=== PATIENT | female | born 1940 | race Caucasian/White ===

== ENCOUNTER 2016-10-20 08:01 | Day surgery (SDC) | payer MEDICARE, OTHER ==
[~2016-10-20] VITALS: Ht 154.9 cm; Wt 70.7 kg
[~2016-10-20 08:01] MED LIST: AMAR4TAB PO; BAYE81TA PO; CALC600T34 PO; CEPH500C3 PO; CORE25TA PO; DIGO.125 PO; FORTEO IM; HYDR10TA16 PO; LASI20TA PO; LEVEMIR SQ; LISI-363 PO; TAB-TAB PO; VYTO10TA32 PO
[2016-10-20 08:44] VITALS: BP 134/58; PULSE 108; RESP 18; TEMP 97.7; O2SAT 92
[2016-10-20] MEDS ORDERED: NS 1000P @30 MLS/HR (KVO) IV SCH (09:00)
[2016-10-20] MEDS ORDERED: INSU1INJ5 SQ (09:02)
[2016-10-20] MEDS ORDERED: CHOL50006 PO (09:02)
[2016-10-20] MEDS ORDERED: CARV12.5 PO (09:02)
[2016-10-20] MEDS ORDERED: LANO0.1212 PO (09:02)
[2016-10-20] MEDS ORDERED: MULT1TAB84 PO (09:02)
[2016-10-20] MEDS ORDERED: FURO1TAB62 PO (09:02)
[2016-10-20] MEDS ORDERED: LOSA50TA PO (09:02)
[2016-10-20] MEDS ORDERED: ASPI81TA11 PO (09:02)
[2016-10-20] MEDS ORDERED: LISI-519 PO (09:02)
[2016-10-20] MEDS ORDERED: VYTO10TA8 PO (09:02)
[2016-10-20 09:15] LABS: AUTOMATED NEUTROPHIL # 4.9 TH/MM3 (1.8-7.7); BASOPHIL % 0.6 % (0.0-2.0); EOSINOPHIL # 0.3 TH/MM3 (0-0.4); EOSINOPHIL % 3.1 % (0.0-4.0); HEMATOCRIT 41.8 % (35.0-46.0); HEMO FLAGS DIFF FINAL; LYMPH % 27.2 % (9.0-44.0); LYMPHOCYTE # 2.3 TH/MM3 (1.0-4.8); MEAN CELL VOLUME 95.3 FL (80.0-100.0); MEAN CORPUSCULAR HEMOGLOBIN 32.9 PG (27.0-34.0); MEAN CORPUSCULAR HGB CONC 34.5 % (32.0-36.0); MONO % 10.3 % (0.0-8.0); NEUT % 58.8 % (16.0-70.0); PLATELET COUNT 197 TH/MM3 (150-450); RED BLOOD COUNT 4.38 MIL/MM3 (4.00-5.30); RED CELL DISTRIBUTION WIDTH 12.3 % (11.6-17.2); WHITE BLOOD COUNT 8.4 TH/MM3 (4.0-11.0)
[2016-10-20 09:22] LABS: BICARBONATE 28.9 MEQ/L (21.0-32.0); POTASSIUM 3.7 MEQ/L (3.5-5.1)
[2016-10-20 09:30] LABS: APTT (PATIENT) 26.6 SEC (24.3-30.1); PROTHROMBIN TIME - PATIENT 11.4 SEC (9.8-11.6)
[2016-10-20] MEDS ORDERED: HEPARIN-NS/PF INJ 500 ML ONE (09:57)
[2016-10-20] MEDS ORDERED: MIDAZOLAM HCL 2 MG/2 ML VIAL ONE (10:18)
[2016-10-20] MEDS ORDERED: VERAPAMIL HCL 5 MG/2 ML VIAL ONE (10:19)
[2016-10-20] MEDS ORDERED: HEPARIN SODIUM - IV 10,000 UNITS/10 ML VIAL ONE (10:19)
[2016-10-20] MEDS ORDERED: NITROGLYCERIN INJ 5 ML ONE (10:19)
[2016-10-20] MEDS ORDERED: IOHEXOL 350 MG/ML 100 ML BTL (for Cath Lab) OTHER ONE (11:00)
[2016-10-20] MEDS ORDERED: SODIUM CHLORIDE 0.9% FLUSH 5 ML FLUSH IVF SCH (11:15)
[2016-10-20] MEDS ORDERED: MISC INFORMATION XX ONE (11:15)
[2016-10-20] MEDS ORDERED: SODIUM CHLORIDE 0.9% FLUSH 5 ML FLUSH IVF PRN (11:15)
[2016-10-20] MEDS ORDERED: ceFAZolin 2 GM PREMIX 50 ML IV SCH (12:00)
[2016-10-20] MEDS ORDERED: CEFAZOLIN INJ 500 MG in SODIUM CHLORIDE 0.9% IRR BTL 500 ML IRRIGATION SCH (12:00)
--- NOTE | 2016-10-20 12:49 | MA ---
cc: MILIND CHEW HANSCY M.D. DATE 10/20/2016 PROCEDURE Left heart catheterization, coronary angiogram. PREPROCEDURE DIAGNOSIS Severe mitral regurgitation by echocardiogram for possible CT surgery. POSTPROCEDURE DIAGNOSIS Mild coronary artery disease, severe mitral regurgitation. MEDICATIONS USED 1. Heparin 2800 units 2. Verapamil 2.5 mg 3. Nitroglycerin 200 mcg 4. Versed 0.5 mg 5. Fentanyl 25 mcg CONTRAST 90 cc FLUOROSCOPY 4.2 minutes ESTIMATED BLOOD LOSS 10 cc PROCEDURAL SUMMARY Jeniffer Huerta is a pleasant 76-year-old female sent to me by Dr. Stubbs after having an echocardiogram that showed severe mitral regurgitation. There is a concern that she is starting to drop for ejection fraction and is asymptomatic from this. He asked that she have coronary visualization and then a consult with CT surgery about the mitral valve. The risks, benefits and alternatives were explained to her and she signed consent as such. She was brought to the lab and prepped in the usual sterile fashion. The right radial artery was accessed using a modified Seldinger technique and placement of a 5/6 slender sheath. The sheath was aspirated and flushed with ease. A JR-4 was then advanced over a J-wire to the ascending aorta. This was used to cross the aortic valve and pressures in the left ventricle were measured at an LVEDP of 17. JR-4 was then pulled back across the aortic valve showing no significant stenosis aortic stenosis gradient. JR-4 was used for selective angiography of the right coronary artery which shows a superior takeoff with mild tortuosity through the proximal to midportion with a 30% lesion. Otherwise, no significant disease throughout. The RCA is a dominant vessel. JR-4 was then exchanged for a JL-3.5. This was used for selective angiography of the left coronary system. Left main is a normal-size vessel with mild calcium at the distal portion with a 20% lesion. It trifurcates into an LAD, ramus and left circumflex. The LAD has 20% proximally with 10% diffuse distally. It gives off two diagonals the first of which is a small vessel and has a 50% ostial lesion. The second has no significant disease. The ramus is a large vessel that does go to the apex, and has no significant disease throughout. A left circumflex is a nondominant vessel and is somewhat tortuous, but has mild disease of 10-20% in the mid section. JL-3.5 was then removed over a J-wire. A TR band was placed across the radial sheath, radial sheath removed and placement of 11 cc of air. The patient left the cardiac catheterization lab stable. IMPRESSION 1. Severe mitral regurgitation by echocardiogram with a drop of her ejection fraction. 2. Shortness of breath most likely from severe mitral regurgitation. 3. Mild coronary artery disease by cardiac catheterization (October 20, 2016). RECOMMENDATIONS 1. Jeniffer appears to have mild coronary artery disease and I feel that she needs any vessels bypassed at this time. 2. She will be evaluated by CT surgery for consideration of mitral valve repair versus replacement. 3. Further recommendations after CT surgery evaluation. Thank you for allowing me to see Jeniffer Huerta. If there are any questions, please do not hesitate to call. Milind Chew DO VGP/DJL /11:05 AM /12:37 PM
--- NOTE | 2016-10-20 12:59 | EKG ---
Date Performed: 10/20/2016 Time Performed: 08:52:30 PTAGE: 76 years EKG: Marked baseline artifact. Probable Sinus rhythm with possible ventricular demand pacing Abnormal ECG COMPARED TO PRIOR ELECTROCARDIOGRAM, Artifact m akes comparison difficult although there probably is no definite change. Clinical correlation sugges gregorio. PREVIOUS TRACING : 11/05/2010 05.13 DOCTOR: Valeriy Kent Interpretating Date/Time 10/20/2016 12:58:35
--- NOTE | 2016-10-20 13:13 | RADRPT ---
EXAM DATE/TIME: 10/20/2016 12:08 [facility] COMPARISON: No previous studies available for comparison. INDICATIONS : PreOp mitral valve replacement. MEDICAL HISTORY : Hypothyroidism. Congestive heart failure. Diabetes mellitus type 2. Hypertension. A-Fib. Glaucoma. SURGICAL HISTORY : Cardiac catheterization. ENCOUNTER: Initial ACUITY: 1 day PAIN SCORE: 0/10 LOCATION: Bilateral neck PEAK SYSTOLIC VELOCITIES (cm/sec): ICA/CCA RATIO: Right: 2.5 Left: 1.7 ICA: Right: 122 Left: 118 CCA: Right: 50 Left: 68 ECA: Right: 91 Left: 72 VERTEBRAL: Right: 52 antegrade Left: 44 antegrade Elevated flow velocities and ICA/CCA ratios have been found to correlate with increased degrees of vessel stenosis, calculated as percentage of diameter relative to a normal segment of distal ICA/CCA FINDINGS: There is calcific plaque in bilateral carotids lesser extent on the left and on the right at the bulb and particularly initial segment the internal carotid with elevated ratio of 2.5 on the right consis tent with greater than 70% stenosis. Vertebral arteries reveal antegrade flow. Multiple nodules noted in the thyroid. CONCLUSION: Atherosclerotic disease and plaque in bilaterally carotids with greater than 70% sten osis on the right. Multinodular goiter Oskar Jj MD on October 20, 2016 at 13:08 Board Certified Radiologist. This report was verified electronically.
--- NOTE | 2016-10-20 13:36 | RADRPT ---
EXAM DATE/TIME: 10/20/2016 12:42 [facility] COMPARISON: CHEST SINGLE AP, November 04, 2010, 16:06. INDICATIONS : Pre op mitral valve surgery. MEDICAL HISTORY : Hyperthyroidism. Congestive heart failure. Diabetes. A-fib. SURGICAL HISTORY : Pacemaker. ENCOUNTER: Initial ACUITY: 1 day PAIN SCORE: 0/10 LOCATION: chest FINDINGS: A single view of the chest demonstrates the lungs to be symmetrically aerated without evidence of mas s, infiltrate or effusion. The cardiomediastinal contours are unremarkable. Osseous structures are intact. Multilevel pacemaker AICD device overlies left hemithorax unchanged. CONCLUSION: Pacemaker AICD device in place. Otherwise negative with no acute cardiopulmonary process Oskar Jj MD on October 20, 2016 at 13:34 Board Certified Radiologist. This report was verified electronically.
--- NOTE | 2016-10-20 14:26 | PD.CAR.PN ---
CVT Progress Note Subjective/Hospital Course: sts data discussed with pt Objective: Vital Signs Date Time Temp Pulse Resp B/P Pulse Ox O2 Delivery O2 Flow Rate FiO2 10/20/16 11:13 Room Air 10/20/16 08:44 97.7 108 18 134/58 92 Labs: Laboratory Tests Test 10/20/16 08:36 White Blood Count 8.4 TH/MM3 (4.0-11.0) Red Blood Count 4.38 MIL/MM3 (4.00-5.30) Hemoglobin 14.4 GM/DL (11.6-15.3) Hematocrit 41.8 % (35.0-46.0) Mean Corpuscular Volume 95.3 FL (80.0-100.0) Mean Corpuscular Hemoglobin 32.9 PG (27.0-34.0) Mean Corpuscular Hemoglobin 34.5 % Concent (32.0-36.0) Red Cell Distribution Width 12.3 % (11.6-17.2) Platelet Count 197 TH/MM3 (150-450) Mean Platelet Volume 9.0 FL (7.0-11.0) Neutrophils (%) (Auto) 58.8 % (16.0-70.0) Lymphocytes (%) (Auto) 27.2 % (9.0-44.0) Monocytes (%) (Auto) 10.3 % (0.0-8.0) Eosinophils (%) (Auto) 3.1 % (0.0-4.0) Basophils (%) (Auto) 0.6 % (0.0-2.0) Neutrophils # (Auto) 4.9 TH/MM3 (1.8-7.7) Lymphocytes # (Auto) 2.3 TH/MM3 (1.0-4.8) Monocytes # (Auto) 0.9 TH/MM3 (0-0.9) Eosinophils # (Auto) 0.3 TH/MM3 (0-0.4) Basophils # (Auto) 0.0 TH/MM3 (0-0.2) CBC Comment DIFF FINAL Differential Comment Prothrombin Time 11.4 SEC (9.8-11.6) Prothromb Time International 1.0 RATIO Ratio Activated Partial 26.6 SEC Thromboplast Time (24.3-30.1) Sodium Level 144 MEQ/L (136-145) Potassium Level 3.7 MEQ/L (3.5-5.1) Chloride Level 107 MEQ/L (98-107) Carbon Dioxide Level 28.9 MEQ/L (21.0-32.0) Anion Gap 8 MEQ/L (5-15) Blood Urea Nitrogen 15 MG/DL (7-18) Creatinine 0.97 MG/DL (0.50-1.00) Estimat Glomerular Filtration 56 ML/MIN (>89) Rate Random Glucose 85 MG/DL (74-106) Calcium Level 9.3 MG/DL (8.5-10.1) Result Diagram: 10/20/16 0836 10/20/16 0836 Kailee Bustamante Oct 20, 2016 14:26
[2016-10-20 15:20] LABS: BLOOD, URINE SMALL (NEG); COMMENT (UR) CULTURE INDICATED; CULTURE IF INDICATED CULTURE INDICATED; GLUCOSE,URINE NEG (NEG); KETONE, URINE NEG (NEG); MUCUS URINE FEW /lpf (OCC); NITRITE,URINE NEG (NEG); PH, URINE 5.5 (5.0-8.5); SQUAMOUS EPITHELIAL CELL URINE 5 /hpf (0-5); URINE COLOR YELLOW (YELLW/STRAW)
[2016-10-20 17:53] LABS: HEMOGLOBIN A1a 0.9 %; HEMOGLOBIN Ao 82.4 %; HEMOGLOBIN LA1C 1.7 %; HEMOGLOBIN P3 4.2 %
--- NOTE | 2016-11-09 10:57 | RSPPFT ---
DATE OF PROCEDURE: 10/20/16 COMMENTS: Spirometry demonstrates an FEV1 of 0.9 at 51% of predicted, FVC of 1.2 at 52%, FEF 25-75 at 41% of predicted. Flow volume loops suggest a restrictive defect. IMPRESSION: 1. Moderately severe restrictive disease. 2. Additional moderate obstructive disease.
== END 2016-10-20 16:35 | disposition home or self-care (01) ==
LOC: HDOC 08:01 → HDIC 08:02 → HDOC 16:35
PROVIDERS: ATTEND Nuclear Medicine Nuclear Cardiology
DX: I34.0 Nonrheumatic mitral (valve) insufficiency (principal); I25.10 Atherosclerotic heart disease of native coronary artery without angina pectoris; I48.91 Unspecified atrial fibrillation; I50.9 Heart failure, unspecified; E03.9 Hypothyroidism, unspecified; E11.9 Type 2 diabetes mellitus without complications; E04.2 Nontoxic multinodular goiter; N39.0 Urinary tract infection, site not specified; B96.1 Klebsiella pneumoniae [K. pneumoniae] as the cause of diseases classified elsewhere; Z79.01 Long term (current) use of anticoagulants; Z95.0 Presence of cardiac pacemaker; Z01.818 Encounter for other preprocedural examination
CPT/HCPCS: 71010; 80048; 81001; 83036; 85025; 85610; 85730; 87077; 87086; 87186; 87641; 93005; 93454; 93880; 94010; C1769; C1893; J1644; J2250; J3010; Q9967

== ENCOUNTER 2016-10-23 15:12 | Inpatient (IN) | payer MEDICARE, OTHER ==
--- NOTE | 2016-10-20 16:25 | MB ---
cc: HATTIE PAPPAS DATE OF CONSULTATION: 10/20/2016 DATE OF : 1940 REASON FOR CONSULTATION: 76-year-old female patient of Dr. Javier Stubbs, Dr. Osiel Jack with longstanding history of congestive heart failure, cardiomyopathy. PAST MEDICAL HISTORY: Ejection fraction of 20-25%, underwent bi IVCD placement in October [address] Stubbs. Also history of hyperlipidemia, diabetes mellitus and atrial fibrillation, apparently having some increased dyspnea with minimal exertion, fatigue, also increased palpitations. Denies having any syncopal episode, no edema. No weight gain or weight loss. No orthopnea, paroxysmal nocturnal dyspnea. Denies having any shocks from her AICD, no recent fevers cold or chills. She said she has been compliant with her medications. She has a history of mitral valve regurgitation, had a echocardiogram September 30 which showed ejection fraction of 50%. Grade 3 diastolic dysfunction, restrictive mitral inflow pattern, mitral valve showed a severe with a concentric jet. There was some mild to moderate tricuspid regurgitation. No pericardial effusion, mild pulmonary hypertension with right ventricle systolic pressures of 55. She underwent cardiac catheterization today by Dr. Mirza which showed minimal coronary disease and we were consulted to evaluate from mitral valve replacement versus repair. PAST MEDICAL HISTORY: 1. The patient's past medical history as above to and also included diabetes mellitus on insulin. 2. glaucoma. PAST SURGICAL HISTORY: 1. Bi IVCD placement. 2. Hysterectomy 3. Tonsillectomy. ALLERGIES No known allergies. MEDICATIONS 1. Aspirin and 81 mg. 2. Coreg 12.5 mg b.i.d. 3. Digoxin 0.125 daily. 4. Lasix 20 p.o. daily. 5. Levemir 13-minute units daily. 6. Lisinopril five p.o. daily. 7. Losartan 50 mg b.i.d. blood. 8. Multivitamin. 9. Vitamin E. 10. Vytorin 10/20 p.o. daily. EKG shows sinus rhythm, Q-waves in inferior leads. LABORATORY FINDINGS: Lab work shows sodium of 144. Potassium 3.7, BUN 15, creatinine 0.97, hemoglobin 14, hematocrit of 41, white cell count 8.4, platelet count 197, INR 1.0. CAROTID ULTRASOUND; Completed showing atherosclerotic disease and plaque in bilateral carotids with greater than 70 stenosis on the right. Chest x-ray Reveals pacer ICD in place, otherwise no acute process. IMPRESSION/PLAN This is a 76-year-old female with history of severe mitral regurgitation. History of prior cardiomyopathy, diastolic dysfunction with bi IV ICD prior with improved EF to 50% on 20-25% on multiple medication and medication compliant. The cardiac films have been reviewed by Dr. Hattie Pappas procedures, alternatives and risks have been discussed with the patient. STS data has also been discussed with the patient. She is agreeable to proceed for mitral valve repair versus replacement on October 29, 2016, as an outpatient. Dictated by: SARKIS Samaniego MD CHASTITY Mayorga/lceveland /2:29 PM /9:16 AM [facility]ME[facility]
[~2016-10-23] VITALS: Ht 154.9 cm; Wt 77.0 kg
[~2016-10-23 15:12] MED LIST changes: -AMAR4TAB PO; +ASPI81TA11 PO; -BAYE81TA PO; -CALC600T34 PO; +CARV12.5 PO; -CEPH500C3 PO; +CHOL50006 PO; -CORE25TA PO; -DIGO.125 PO; -FORTEO IM; +FURO1TAB62 PO; -HYDR10TA16 PO; +INSU1INJ5 SQ; +LANO0.1212 PO; -LASI20TA PO; -LEVEMIR SQ; -LISI-363 PO; +LISI-519 PO; +LOSA50TA PO; +MULT1TAB84 PO; -TAB-TAB PO; -VYTO10TA32 PO; +VYTO10TA8 PO
[2016-10-29] VITALS (16 sets, daily range): BP systolic 100; BP diastolic 51; PULSE 60–69; RESP 18; TEMP 97.5; O2SAT 92–98
[2016-10-29] MEDS ORDERED: VECURONIUM BROMIDE 10 MG VIAL IV ONE (05:00)
[2016-10-29] MEDS ORDERED: CALCIUM CHLORIDE 10% SOLN 1 GRAM/10 ML SYR IV ONE (05:00)
[2016-10-29] MEDS ORDERED: PROPOFOL 1000 MG/100 ML INJ 100 ML IV ONE (05:00)
[2016-10-29] MEDS ORDERED: ACETAMINOPHEN 1000 MG/100 ML VIAL IV ONE (05:00)
[2016-10-29] MEDS ORDERED: PHENYLEPHRINE HCL 10 MG/ML VIAL IV ONE (05:00)
[2016-10-29] MEDS ORDERED: ceFAZolin INJ 1,000 MG VIAL IV ONE ×2 (05:00→12:26)
[2016-10-29] MEDS ORDERED: PROTAMINE SULFATE 250 MG/25 ML VIAL IV ONE (05:00)
[2016-10-29] MEDS ORDERED: HEPARIN SODIUM - SQ 10,000 UNITS/ML VIAL SQ ONE (05:00)
[2016-10-29] MEDS ORDERED: DEXMEDETOMIDINE INJ 50 ML IV ONE (05:00)
[2016-10-29] MEDS ORDERED: MAGNESIUM SULFATE 1000 MG/2 ML VIAL (PED) IV ONE (05:00)
[2016-10-29] MEDS ORDERED: methylPREDNISolone SOD SUCC 125 MG/2 ML VIAL ONE (06:28)
[2016-10-29] MEDS ORDERED: VANCOMYCIN HCL 1000 MG VIAL ONE (06:28)
[2016-10-29] MEDS ORDERED: HEPARIN SODIUM - SQ 10,000 UNITS/ML VIAL ONE (06:28)
[2016-10-29] MEDS ORDERED: ceFAZolin 2 GM PREMIX 50 ML IV SCH (06:30)
[2016-10-29] MEDS ORDERED: METOPROLOL TARTRATE 25 MG TAB PO SCH (06:30)
[2016-10-29] MEDS ORDERED: SODIUM CHLORIDE 0.9% FLUSH 5 ML FLUSH IV FLUSH PRN ×2 (06:30→13:15)
[2016-10-29] MEDS ORDERED: CHLORHEXIDINE GLUCONATE 4% SOLN 120 ML BTL TOPICAL SCH (06:30)
[2016-10-29] MEDS ORDERED: CEFAZOLIN 500 MG in NS IRR BTL 500 ML IRRIGATION SCH (06:30)
[2016-10-29] MEDS ORDERED: INSULIN HUMAN REGULAR 1,000 UNITS/10 ML VIAL SQ PRN (06:30)
[2016-10-29] MEDS: LACTATED RINGER'S 1000 ML IV SCH (06:30)
[2016-10-29] MEDS: SODIUM CHLORID 0.9% 500 ML IV SCH ×2 (06:30→23:10)
[2016-10-29] MEDS ORDERED: INSULIN REGULAR 100 UNITS in NS 100 ML IV SCH (06:30)
[2016-10-29] MEDS ORDERED: CUSTODIOL HTK IRR SOLN 1,000 ML ONE (06:45)
[2016-10-29] MEDS ORDERED: POTASSIUM CHLORIDE 20 MEQ/10 ML VIAL ONE (06:45)
[2016-10-29] MEDS ORDERED: SODIUM BICARBONATE 8.4% INJ 50 ML ONE (06:46)
[2016-10-29] MEDS ORDERED: ALBUMIN HUMAN 25% 12.5 GM/50 ML BAGP IV ONE (06:46)
[2016-10-29] MEDS ORDERED: MANNITOL INJ 50 ML ONE (06:46)
[2016-10-29] MEDS ORDERED: HEPARIN SODIUM - IV 10,000 UNITS/10 ML VIAL ONE (06:47)
[2016-10-29] MEDS: SODIUM CHLORIDE 0.9% FLUSH 5 ML FLUSH IV FLUSH SCH ×3 (09:00→20:41)
[2016-10-29] MEDS ORDERED: BUPIVACAINE HCL PF 0.5% 30 ML VIAL ONE (09:28)
[2016-10-29] MEDS ORDERED: DEXMEDETOMIDINE INJ 50 ML ONE (10:53)
[2016-10-29] MEDS ORDERED: SODIUM CHLORID 0.9% 500 ML INJ 500 ML IV ONE (12:00)
[2016-10-29] MEDS ORDERED: LACTATED RINGER'S 1000 ML INJ 2,000 ML IV ONE (12:00)
[2016-10-29] MEDS ORDERED: SODIUM CHLOR 0.9% 250 ML INJ 500 ML IV ONE (12:00)
[2016-10-29] MEDS ORDERED: PROTAMINE SULFATE 50 MG/5 ML VIAL IV ONE (12:00)
[2016-10-29] MEDS ORDERED: NORMOSOL R INJ 2,000 ML IV ONE (12:00)
[2016-10-29] MEDS ORDERED: LACTATED RINGER'S 1000 ML INJ 500 ML IV PRN (13:01)
[2016-10-29] MEDS ORDERED: DEXTROSE 50% IN WATER 50 ML VIAL(D50) IV PUSH PRN (13:15)
[2016-10-29] MEDS ORDERED: oxyCODONE/ACETAMINOPHEN 5 MG/325 MG TAB PO PRN (13:15)
[2016-10-29] MEDS ORDERED: MAGNESIUM SULFATE INJ 2 GM in SODIUM CHLORIDE 0.9% INJ 100 ML IV PRN ×4 (13:15)
[2016-10-29] MEDS ORDERED: INSULIN REGULAR (IV INFUSION) 100 UNITS in SODIUM CHLORIDE 0.9% INJ 99 ML IV SCH (13:15)
[2016-10-29] MEDS ORDERED: METOPROLOL TARTRATE 5 MG/5 ML VIAL IV PUSH PRN (13:15)
[2016-10-29] MEDS ORDERED: ACETAMINOPHEN 325 MG TAB PO PRN (13:15)
[2016-10-29] MEDS ORDERED: POTASSIUM CHLOR 20 MEQ PREMIX 100 ML IV PRN ×3 (13:15)
[2016-10-29] MEDS ORDERED: ACETAMINOPHEN 650 MG SUPP RECTAL PRN (13:15)
[2016-10-29] MEDS ORDERED: Post-op Orders (for Pharmacy) MISC OTHER ONE (13:15)
[2016-10-29] MEDS ORDERED: hydrALAZINE HCL 20 MG/ML VIAL IV PRN (13:15)
[2016-10-29] MEDS ORDERED: POTASSIUM CHLORIDE 20 MEQ CONTROLLED RELEASE TAB PO PRN ×2 (13:15)
[2016-10-29] MEDS ORDERED: CALCIUM CHLORIDE 10% 1 GRAM/10 ML VIAL IV PRN (13:15)
[2016-10-29] MEDS ORDERED: ONDANSETRON HCL 4 MG/2 ML VIAL IV PUSH PRN (13:15)
[2016-10-29] MEDS ORDERED: CLEVIDIPINE INJ 50 ML IV SCH (13:15)
--- NOTE | 2016-10-29 13:27 | PD.OP ---
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 Prater Surgeon: Hattie Pappas Blanchard Grinder Operator(s): Carlos Tilley Operation and Findings: The risks, benefits, complications, treatment options, and expected outcomes were discussed with the patient. The possibilities of reaction to medication, pulmonary aspiration, perforation of viscus, bleeding, recurrent infection, the need for additional procedures, failure to diagnose a condition, and creating a complication requiring transfusion or operation were discussed with the patient. The patient concurred with the proposed plan, giving informed consent. The site of surgery properly noted/marked. The patient was taken to Operating Room, identified as Jeniffer Huerta, and the procedure verified as Minimally Invasive Mitral Valve Replacement. A Time Out was held and the above information confirmed. Standard monitoring lines and Vizcarra catheter were placed. General anesthesia was induced. The patient was prepped and draped in a sterile fashion. A 3 cm incision was performed in the left groin and the femoral artery and vein were exposed. The patient was heparinized for cardiopulmonary bypass. The left femoral artery was cannulated with a 17 [employer] arterial cannula. The left femoral vein was cannulated with a 21 [employer] cannula under JHONATAN guidance. A 6 cm right anterolateral thoracotomy was performed. An José Miguel retractor was placed followed by a small chest retractor. The pericardium was opened and a pericardial sling was created using interrupted 0 silk sutures. A small 1 cm incision was made at the 6th intercostal space and an LV vent and pericardial suction were placed through this access port. The aorta was dissected posteriorly for crossclamp placement. Antegrade Custodiol cardioplegia were employed. The patient was placed on cardiopulmonary bypass. The intra-atrial groove was dissected out. An aortic cross-clamp was applied and the heart was arrested using cold Custodiol cardioplegia delivered through a 14F catheter. The left atrium was opened mitral valve was exposed using an atrial lift retractor with the post placed percutaneously. The valve was found to appear rheumatic with partial fusion at the medial commissure. Part of the anterior leaflet was resected with the remainder of the subvalvular apparatus spared. The annulus was sized for a 27 Mosaic tissue valve which was placed with 2-0 pledgeted Tycron valve sutures. The valve seated well. The left atrium was closed with running 4-0 Prolene suture. The patient systemically Re warmed and received a hotshot dose of warm blood cardioplegia. The heart was vigorously deaired with a clamp on. The clamp was removed, deairing continued. The patient was easily weaned from cardiopulmonary bypass. Decannulation was carried out without incident and both the femoral vessels were repaired with 5-0 prolene suture. Protamine was given. There was no adverse reaction. Intraoperative JHONATAN following the procedure showed a well-seated mitral valve with a tiny perivalvular leak and preserved ventricular function at ~35%. Wound was checked for hemostasis was obtained using electrocautery. The ribs were reapproximated using 0 Vicryl suture. The fascia and pectoralis were closed with 0 Vicryl. The subcutaneous tissue was closed using a running 3-0 Monocryl suture. The skin was closed with 4-0 Monocryl. The groin was closed in 2 layers. Sterile dressings were placed. At the end of the operation, all sponge, instruments, and needle counts were correct. The patient was transferred to the CVICU in stable condition. Hattie Pappas MD Oct 29, 2016 13:27
[2016-10-29] MEDS: ACETAMINOPHEN 1000 MG/100 ML VIAL IV SCH ×2 (13:43→22:17)
[2016-10-29] MEDS: CALCIUM CHLORIDE INJ 1 GM in SODIUM CHLORIDE 0.9% INJ 100 ML IV PRN (13:51)
[2016-10-29] MEDS ORDERED: RESP: ALBUTEROL 2.5 MG/IPRATROPIUM 0.5 MG NEB (PRN) NEB (14:15)
[2016-10-29] MEDS ORDERED: RESP: RACEPINEPHRINE 2.25% 0.5 ML NEB NEB PRN (14:15)
--- NOTE | 2016-10-29 14:22 | RADRPT ---
EXAM DATE/TIME: 10/29/2016 13:21 [facility] COMPARISON: CHEST SINGLE AP, October 20, 2016, 12:42. INDICATIONS : Post op mitral valve replacement. MEDICAL HISTORY : Hyperthyroidism. Congestive heart failure. Diabetes. A-fib. SURGICAL HISTORY : Pacemaker. ENCOUNTER: Subsequent ACUITY: 4 - 6 days PAIN SCORE: Non-responsive. LOCATION: Bilateral chest FINDINGS: Single AP view of the chest. Endotracheal tube is in place with the tip 4.3 cm above the gerardo. Righ t IJ central venous catheter is in place with the tip in the distal SVC. Nasogastric tube in place wi th the tip in the stomach. AICD remains in place. Right-sided chest tube and mediastinal drain are se en. Mild patchy bilateral midlung zone opacity. No evidence of pleural effusion or pneumothorax. CONCLUSION: Multiple lines and tubes in place. Mild patchy atelectasis versus consolidation of the midlung zones. Rajendra Kuo MD on October 29, 2016 at 14:19 Board Certified Radiologist. This report was verified electronically.
[2016-10-29] MEDS ORDERED: MIDAZOLAM HCL 5 MG/5 ML VIAL ONE ×2 (14:36→14:37)
[2016-10-29] MEDS ORDERED: fentaNYL CITRATE 1000 MCG/20 ML VIAL ONE (14:37)
[2016-10-29] MEDS: RESP: ALBUTEROL 2.5 MG/IPRATROPIUM 0.5 MG NEB (SCH) NEB ×2 (17:13→19:28)
[2016-10-29] MEDS: PRAVASTATIN SOD 40 MG TAB PO SCH (20:30)
[2016-10-29] MEDS: EZETIMIBE 10 MG TAB PO SCH (20:41)
[2016-10-29] MEDS ORDERED: NON-FORMULARY DRUG (Ezetimibe-Simvastatin (Vytorin) 1 TAB) PO SCH (21:00)
[2016-10-30] VITALS (30 sets, daily range): BP systolic 123–157; BP diastolic 51–69; PULSE 61–83; RESP 20–22; TEMP 97.5–97.9; O2SAT 94–97
[2016-10-30] MEDS: ACETAMINOPHEN 1000 MG/100 ML VIAL IV SCH ×2 (02:00→07:34)
[2016-10-30 04:33] LABS: HEMATOCRIT 35.2 % (35.0-46.0); MEAN CELL VOLUME 97.1 FL (80.0-100.0); MEAN CORPUSCULAR HEMOGLOBIN 32.5 PG (27.0-34.0); MEAN CORPUSCULAR HGB CONC 33.5 % (32.0-36.0); PLATELET COUNT 109 TH/MM3 (150-450); RED BLOOD COUNT 3.63 MIL/MM3 (4.00-5.30); REVIEW FLAG FINAL; WHITE BLOOD COUNT 11.5 TH/MM3 (4.0-11.0)
[2016-10-30] MEDS: RESP: ALBUTEROL 2.5 MG/IPRATROPIUM 0.5 MG NEB (SCH) NEB ×3 (04:44→20:55)
[2016-10-30 04:57] LABS: BICARBONATE 20.7 MEQ/L (21.0-32.0); MAGNESIUM 3.1 MG/DL (1.5-2.5); POTASSIUM 4.4 MEQ/L (3.5-5.1)
--- NOTE | 2016-10-30 06:11 | RADRPT ---
EXAM DATE/TIME: 10/30/2016 04:54 [facility] COMPARISON: CHEST SINGLE AP, October 29, 2016, 13:21. INDICATIONS : Post CABG. MEDICAL HISTORY : Congestive heart failure. SURGICAL HISTORY : Pacemaker. CABG. ENCOUNTER: Subsequent ACUITY: 2 days PAIN SCORE: Non-responsive. LOCATION: Bilateral chest FINDINGS: Portable AP view of the chest demonstrates a normal-sized cardiac silhouette. Left chest wall cardiac pacing device/AICD remains present. A right IJ central line remains present with distal tip in the r ight atrium. The nasogastric tube and endotracheal tube have been removed. Right chest tube remains p resent and no pneumothorax is visualized. There is mild to opacity the right lung base that is new an d there is also left basilar pleural-parenchymal opacity that appears new. CONCLUSION: 1. New small bibasilar opacities likely representing pleural effusion with associated volume loss and /or airspace consolidation. 2. Right chest tube remains present and no pneumothorax is visualized. Hardik Tripathi MD on October 30, 2016 at 6:07 Board Certified Radiologist. This report was verified electronically.
[2016-10-30] MEDS: PANTOPRAZOLE SOD 40 MG DELAYED RELEASE TAB PO SCH (06:22)
[2016-10-30] MEDS: LACTATED RINGER'S 1000 ML IV SCH (06:30)
[2016-10-30] MEDS ORDERED: DOPamine INJ PREMIX 500 ML IV STA (07:13)
[2016-10-30] MEDS ORDERED: SODIUM BICARBONATE 8.4% INJ 50 ML ONE (07:32)
[2016-10-30] MEDS ORDERED: SODIUM BICARBONATE 8.4% SOLN 50 MEQ/50 ML VIAL IV ONE (07:45)
[2016-10-30] MEDS: SODIUM CHLORIDE 0.9% FLUSH 5 ML FLUSH IV FLUSH SCH ×3 (08:11→22:20)
[2016-10-30] MEDS ORDERED: ASPIRIN EC 81 MG TABEC PO SCH (09:00)
[2016-10-30] MEDS ORDERED: FUROSEMIDE 40 MG/4 ML VIAL ONE (09:24)
[2016-10-30] MEDS: ASPIRIN 81 MG CHEW TAB PO SCH (09:35)
[2016-10-30] MEDS: MULTIVITAMINS/MINERALS THERAPEUTIC TAB PO SCH (09:35)
[2016-10-30] MEDS ORDERED: SOD PHOSPHATE/SOD BIPHOSPHATE (ADULT) ENEMA 133ML RECTAL PRN (09:45)
[2016-10-30] MEDS ORDERED: GLUCAGON 1 MG/ML VIAL OTHER PRN (09:45)
[2016-10-30] MEDS ORDERED: DEXTROSE 50% IN WATER 50 ML VIAL(D50) IV PRN (09:45)
[2016-10-30] MEDS ORDERED: BISACODYL 10 MG SUPP RECTAL PRN (09:45)
[2016-10-30] MEDS ORDERED: FUROSEMIDE 40 MG/4 ML VIAL IV PUSH ONE (09:45)
[2016-10-30] MEDS ORDERED: PILL SPLITTER OTHER PRN (10:00)
[2016-10-30] MEDS: CALCIUM CHLORIDE INJ 1 GM in SODIUM CHLORIDE 0.9% INJ 100 ML IV PRN (10:01)
[2016-10-30] MEDS: INSULIN ASPART SUPPLEMENTAL SCALE SQ SCH ×4 (10:38→22:16)
[2016-10-30] MEDS: amLODIPine BESYLATE 5 MG TAB PO SCH (11:30)
--- NOTE | 2016-10-30 13:43 | EKG ---
Date Performed: 10/30/2016 Time Performed: 05:59:02 PTAGE: 76 years EKG: Ventricular pacing Pacemaker rhythm - no further analysis Abnormal ECG PREVIOUS TRACING : 10/20/2016 08.52.30 Since previous tracing, no significant change noted DOCTOR: Rocio Luciano Interpretating Date/Time 10/30/2016 13:35:53
--- NOTE | 2016-10-30 15:55 | PD.CAR.PN ---
CVT Progress Note CVT: POD #: 1 Subjective/Hospital Course: 76/ female hx of recent worsening dyspnea on exertion with palpitations/ hx of severe MR/ mitral stenosis, cardiomyopathy with EF 2.-25% BI V ICD PMH: Mitral valve disease, mild CAD, afib, CM, CHF, DM, HTN, hgb aic 8.2 surgery: 10/29 Minimally invasive MVR with a 27 Mosaic tissue valve, JHONATAN, Left femoral cutdown for cannulation, CPB 3300 crystalloid, 1300EBL, 650 cell saver, urine 420 extubated after surgery 2 required 100% NRB this am , now weaned to 6 liter nasal cannula right lower lobe atelectasis, small effusion BIV pacer interrogated post surgery low urine output during night , weaned off dobutamine and epi gtt gentle diuresis this am , mild metabolic acidosis by GEM/ s/p 2 amps NA bicarb, repeat GEM improved , eval for transfer to stepdown later today Objective: GENERAL: SKIN: Warm and dry./ incision intact right upper chest wall HEAD: Normocephalic. EYES: No scleral icterus. No injection or drainage. NECK: Supple, trachea midline. No JVD or lymphadenopathy. CARDIOVASCULAR: Regular rate and rhythm without murmurs, gallops, or rubs. RESPIRATORY: diminished in bases Breath sounds equal bilaterally. No accessory muscle use. chest tube to wall suction/ drained 190cc/ 12 hrs GASTROINTESTINAL: Abdomen soft, non-tender, nondistended. MUSCULOSKELETAL: No cyanosis, or edema. BACK: Nontender without obvious deformity. No CVA tenderness. Vital Signs Date Time Temp Pulse Resp B/P Pulse Ox O2 Delivery O2 Flow Rate FiO2 10/30/16 13:08 79 10/30/16 12:44 96 Nasal Cannula 6.00 10/30/16 12:00 95 Partial Non-Rebreather 6.00 50 10/30/16 12:00 79 10/30/16 11:46 95 Partial Non-Rebreather 6.00 50 10/30/16 11:45 97.9 83 20 157/69 95 10/30/16 11:00 77 10/30/16 10:01 96 Partial Rebreather 15.00 10/30/16 10:00 76 10/30/16 09:20 97 Non-Rebreather 15.00 10/30/16 09:00 74 10/30/16 08:00 76 10/30/16 07:00 73 10/30/16 07:00 98 Non-Rebreather 100 10/30/16 06:00 68 10/30/16 05:00 64 10/30/16 04:00 64 10/30/16 03:00 63 10/30/16 02:00 61 10/30/16 01:00 62 10/30/16 00:00 61 10/29/16 23:00 61 10/29/16 22:50 18 10/29/16 22:00 63 10/29/16 21:00 63 10/29/16 20:00 63 10/29/16 19:30 94 Non-Rebreather 10/29/16 19:00 65 10/29/16 19:00 97 Non-Rebreather 100 10/29/16 18:00 60 10/29/16 18:00 94 Non-Rebreather 100 10/29/16 17:35 98 Non-Rebreather 100 10/29/16 17:13 93 Nasal Cannula 5 10/29/16 17:00 60 10/29/16 16:08 Nasal Cannula 92 40 10/29/16 16:00 50 10/29/16 16:00 60 Labs: Laboratory Tests Test 10/30/16 03:55 White Blood Count 11.5 TH/MM3 (4.0-11.0) Red Blood Count 3.63 MIL/MM3 (4.00-5.30) Hemoglobin 11.8 GM/DL (11.6-15.3) Hematocrit 35.2 % (35.0-46.0) Mean Corpuscular Volume 97.1 FL (80.0-100.0) Mean Corpuscular Hemoglobin 32.5 PG (27.0-34.0) Mean Corpuscular Hemoglobin 33.5 % Concent (32.0-36.0) Red Cell Distribution Width 13.0 % (11.6-17.2) Platelet Count 109 TH/MM3 (150-450) Mean Platelet Volume 9.4 FL (7.0-11.0) Sodium Level 143 MEQ/L (136-145) Potassium Level 4.4 MEQ/L (3.5-5.1) Chloride Level 109 MEQ/L (98-107) Carbon Dioxide Level 20.7 MEQ/L (21.0-32.0) Anion Gap 13 MEQ/L (5-15) Blood Urea Nitrogen 33 MG/DL (7-18) Creatinine 1.52 MG/DL (0.50-1.00) Estimat Glomerular Filtration 33 ML/MIN (>89) Rate Random Glucose 70 MG/DL (74-106) Calcium Level 8.2 MG/DL (8.5-10.1) Magnesium Level 3.1 MG/DL (1.5-2.5) Result Diagram: 10/30/1635410/30/165 Telemetry: v paced (1) Mitral regurgitation (2) S/P MVR (mitral valve replacement) Plan: on ASA, will need anticoagulation short term post chest tube removal resume low dose BB in am dose of diuretic today pulm toileting, nebs, ezpap wean 02 OOB, ambulate (3) Combined systolic and diastolic congestive heart failure Plan: resumed olivia/ arb when creatinine improved (4) CHF (congestive heart failure), NYHA class III (5) Diabetes mellitus Plan: on insulin sliding, scale levemir bid diabetic diet nutrition educator consult (6) Hypertension Plan: stable at this time Kailee Bustamante Oct 30, 2016 15:55
[2016-10-30] MEDS: INSULIN DETEMIR 100 UNITS/ML VIAL SQ SCH (22:17)
[2016-10-30] MEDS: EZETIMIBE 10 MG TAB PO SCH (22:17)
[2016-10-30] MEDS: PRAVASTATIN SOD 40 MG TAB PO SCH (22:17)
[2016-10-30] MEDS: DOCUSATE SODIUM 100 MG CAP PO SCH (22:17)
[2016-10-30] MEDS: SENNOSIDES 8.6 MG TAB PO SCH (22:17)
[2016-10-31] VITALS (32 sets, daily range): BP systolic 118–132; BP diastolic 53–64; PULSE 71–123; RESP 20–22; TEMP 97.7–98.5; O2SAT 90–96
[2016-10-31] MEDS: INSULIN ASPART SUPPLEMENTAL SCALE SQ SCH ×5 (02:00→21:00)
[2016-10-31] MEDS: PANTOPRAZOLE SOD 40 MG DELAYED RELEASE TAB PO SCH (06:13)
[2016-10-31] MEDS: LACTATED RINGER'S 1000 ML IV SCH (06:30)
--- NOTE | 2016-10-31 08:34 | PD.CAR.PN ---
CVT Progress Note Subjective/Hospital Course: 76/ female hx of recent worsening dyspnea on exertion with palpitations/ hx of severe MR/ mitral stenosis, cardiomyopathy with EF 2.-25% BI V ICD PMH: Mitral valve disease, mild CAD, afib, CM, CHF, DM, HTN, hgb aic 8.2 surgery: 10/29 Minimally invasive MVR with a 27 Mosaic tissue valve, JHONATAN, Left femoral cutdown for cannulation, CPB 3300 crystalloid, 1300EBL, 650 cell saver, urine 420 extubated after surgery 10/30 required 100% NRB this am , now weaned to 6 liter nasal cannula right lower lobe atelectasis, small effusion BIV pacer interrogated post surgery low urine output during night , weaned off dobutamine and epi gtt gentle diuresis this am , mild metabolic acidosis by GEM/ s/p 2 amps NA bicarb, repeat GEM improved , eval for transfer to stepdown later today 10/[address] still draining serous output. Maintain until tomorrow Ambulate Objective: Vital Signs Date Time Temp Pulse Resp B/P Pulse Ox O2 Delivery O2 Flow Rate FiO2 10/31/16 06:00 82 10/31/16 05:00 82 10/31/16 04:00 84 10/31/16 03:15 96 Nasal Cannula 2.00 10/31/16 03:15 97.8 88 22 132/64 96 10/31/16 03:00 85 10/31/16 02:00 82 10/31/16 01:00 83 10/31/16 00:00 82 10/30/16 23:50 100 Nasal Cannula 5.00 10/30/16 23:50 97.5 81 22 127/51 95 10/30/16 23:00 81 10/30/16 22:00 82 10/30/16 21:00 81 10/30/16 20:59 94 Nasal Cannula 5.00 10/30/16 20:30 97.5 81 22 123/58 95 10/30/16 20:30 100 Nasal Cannula 5.00 10/30/16 20:15 81 10/30/16 20:00 80 10/30/16 18:00 78 10/30/16 17:00 79 10/30/16 16:00 97.9 76 22 134/68 95 10/30/16 16:00 76 10/30/16 16:00 100 Nasal Cannula 5.00 10/30/16 15:00 75 10/30/16 14:00 100 Nasal Cannula 5.00 10/30/16 13:45 78 10/30/16 13:08 79 10/30/16 12:44 96 Nasal Cannula 6.00 10/30/16 12:00 95 Partial Non-Rebreather 6.00 50 10/30/16 12:00 79 10/30/16 11:46 95 Partial Non-Rebreather 6.00 50 10/30/16 11:45 97.9 83 20 157/69 95 10/30/16 11:00 77 10/30/16 10:01 96 Partial Rebreather 15.00 10/30/16 10:00 76 10/30/16 09:20 97 Non-Rebreather 15.00 10/30/16 09:00 74 Result Diagram: 10/30/16 0355 10/30/16 0355 (1) Mitral regurgitation (2) S/P MVR (mitral valve replacement) Plan: on ASA, will need anticoagulation short term post chest tube removal resume low dose BB in am dose of diuretic today pulm toileting, nebs, ezpap wean 02 OOB, ambulate (3) Combined systolic and diastolic congestive heart failure Plan: resumed olivia/ arb when creatinine improved (4) CHF (congestive heart failure), NYHA class III (5) Diabetes mellitus Plan: on insulin sliding, scale levemir bid diabetic diet childbirth educator consult (6) Hypertension Plan: stable at this time Brennan Rai MD Oct 31, 2016 08:34
[2016-10-31] MEDS: RESP: ALBUTEROL 2.5 MG/IPRATROPIUM 0.5 MG NEB (SCH) NEB ×3 (08:47→20:29)
[2016-10-31] MEDS: INSULIN DETEMIR 100 UNITS/ML VIAL SQ SCH ×2 (09:16→21:00)
[2016-10-31] MEDS: MAGNESIUM HYDROXIDE SUSP 30 ML CUP PO SCH (09:16)
[2016-10-31] MEDS: MULTIVITAMINS/MINERALS THERAPEUTIC TAB PO SCH (09:16)
[2016-10-31] MEDS: DOCUSATE SODIUM 100 MG CAP PO SCH ×2 (09:17→21:00)
[2016-10-31] MEDS: POLYETHYLENE GLYCOL 17 GM PKG PO SCH (09:17)
[2016-10-31] MEDS: amLODIPine BESYLATE 5 MG TAB PO SCH (09:17)
[2016-10-31] MEDS: SODIUM CHLORIDE 0.9% FLUSH 5 ML FLUSH IV FLUSH SCH ×2 (09:17→22:25)
[2016-10-31] MEDS: ASPIRIN 81 MG CHEW TAB PO SCH (09:17)
[2016-10-31 13:29] LABS: AUTOMATED NEUTROPHIL # 12.8 TH/MM3 (1.8-7.7); BASOPHIL % 0.1 % (0.0-2.0); HEMATOCRIT 34.7 % (35.0-46.0); HEMO FLAGS DIFF FINAL; LYMPH % 7.9 % (9.0-44.0); LYMPHOCYTE # 1.2 TH/MM3 (1.0-4.8); MEAN CELL VOLUME 97.4 FL (80.0-100.0); MEAN CORPUSCULAR HGB CONC 32.8 % (32.0-36.0); MONO % 7.3 % (0.0-8.0); NEUT % 84.7 % (16.0-70.0); PLATELET COUNT 135 TH/MM3 (150-450); RED BLOOD COUNT 3.56 MIL/MM3 (4.00-5.30); RED CELL DISTRIBUTION WIDTH 12.8 % (11.6-17.2); WHITE BLOOD COUNT 15.1 TH/MM3 (4.0-11.0)
[2016-10-31 13:43] LABS: MAGNESIUM 2.2 MG/DL (1.5-2.5); POTASSIUM 4.7 MEQ/L (3.5-5.1)
[2016-10-31] MEDS: SENNOSIDES 8.6 MG TAB PO SCH (21:00)
[2016-10-31] MEDS ORDERED: AMIODARONE 450 MG/D5W (EXCEL) 241 ML IV SCH ×2 (21:30)
[2016-10-31] MEDS ORDERED: AMIODARONE 150 MG/D5W 97 ML BOLUS 60 MINUTES IV ONE ×2 (21:30)
[2016-10-31] MEDS: EZETIMIBE 10 MG TAB PO SCH (22:24)
[2016-10-31] MEDS: PRAVASTATIN SOD 40 MG TAB PO SCH (22:24)
[2016-11-01] VITALS (31 sets, daily range): BP systolic 110–125; BP diastolic 56–85; PULSE 85–112; RESP 18–22; TEMP 97.5–98.8; O2SAT 94–99
[2016-11-01] MEDS: INSULIN ASPART SUPPLEMENTAL SCALE SQ SCH ×4 (06:01→21:52)
[2016-11-01] MEDS: PANTOPRAZOLE SOD 40 MG DELAYED RELEASE TAB PO SCH (06:01)
[2016-11-01] MEDS: RESP: ALBUTEROL 2.5 MG/IPRATROPIUM 0.5 MG NEB (SCH) NEB (08:00)
--- NOTE | 2016-11-01 08:26 | PD.CAR.PN ---
CVT Progress Note Subjective/Hospital Course: 76/ female hx of recent worsening dyspnea on exertion with palpitations/ hx of severe MR/ mitral stenosis, cardiomyopathy with EF 2.-25% BI V ICD PMH: Mitral valve disease, mild CAD, afib, CM, CHF, DM, HTN, hgb aic 8.2 surgery: 10/29 Minimally invasive MVR with a 27 Mosaic tissue valve, JHONATAN, Left femoral cutdown for cannulation, CPB 3300 crystalloid, 1300EBL, 650 cell saver, urine 420 extubated after surgery 10/30 required 100% NRB this am , now weaned to 6 liter nasal cannula right lower lobe atelectasis, small effusion BIV pacer interrogated post surgery low urine output during night , weaned off dobutamine and epi gtt gentle diuresis this am , mild metabolic acidosis by GEM/ s/p 2 amps NA bicarb, repeat GEM improved , eval for transfer to stepdown later today 10/[address] still draining serous output. Maintain until tomorrow Ambulate 11/01 D/C CT Discharge planning Objective: Vital Signs Date Time Temp Pulse Resp B/P Pulse Ox O2 Delivery O2 Flow Rate FiO2 11/01/16 08:06 98.6 105 20 114/68 94 11/01/16 08:06 94 Nasal Cannula 1.00 11/01/16 05:00 104 11/01/16 04:44 96 Nasal Cannula 2.00 11/01/16 04:44 97.9 86 22 118/56 98 11/01/16 04:00 99 11/01/16 03:00 92 11/01/16 02:00 97 11/01/16 01:00 99 11/01/16 00:00 102 10/31/16 23:40 97.9 102 22 119/61 96 10/31/16 23:40 96 Nasal Cannula 2.00 10/31/16 23:00 90 10/31/16 22:00 113 10/31/16 21:00 121 10/31/16 20:30 97.7 121 22 118/53 96 10/31/16 20:30 96 Nasal Cannula 2.00 10/31/16 20:28 90 21 10/31/16 20:00 123 10/31/16 19:00 116 10/31/16 18:00 113 10/31/16 17:00 84 10/31/16 16:24 98.5 71 20 122/57 92 10/31/16 16:24 92 Room Air 10/31/16 16:00 82 10/31/16 15:00 81 10/31/16 14:00 83 10/31/16 13:00 84 10/31/16 12:00 86 10/31/16 11:41 96 Room Air 10/31/16 11:41 98.3 77 22 132/64 96 10/31/16 11:00 82 10/31/16 10:00 87 10/31/16 09:07 98.3 77 22 132/64 96 10/31/16 09:07 96 Nasal Cannula 1.00 10/31/16 09:00 82 10/31/16 08:45 96 Nasal Cannula 1.50 Result Diagram: 10/31/16 1256 10/31/16 1256 (1) Mitral regurgitation (2) S/P MVR (mitral valve replacement) Plan: on ASA, will need anticoagulation short term post chest tube removal resume low dose BB in am dose of diuretic today pulm toileting, nebs, ezpap wean 02 OOB, ambulate (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
[2016-11-01] MEDS: AMIODARONE 200 MG TAB PO SCH ×2 (08:50→21:51)
[2016-11-01] MEDS: MAGNESIUM HYDROXIDE SUSP 30 ML CUP PO SCH (08:51)
[2016-11-01] MEDS: amLODIPine BESYLATE 5 MG TAB PO SCH (08:51)
[2016-11-01] MEDS: MULTIVITAMINS/MINERALS THERAPEUTIC TAB PO SCH (08:51)
[2016-11-01] MEDS: ASPIRIN 81 MG CHEW TAB PO SCH (08:51)
[2016-11-01] MEDS: DOCUSATE SODIUM 100 MG CAP PO SCH ×2 (08:51→21:51)
[2016-11-01] MEDS: INSULIN DETEMIR 100 UNITS/ML VIAL SQ SCH ×2 (08:51→21:52)
[2016-11-01] MEDS: POLYETHYLENE GLYCOL 17 GM PKG PO SCH (08:51)
[2016-11-01] MEDS: SODIUM CHLORIDE 0.9% FLUSH 5 ML FLUSH IV FLUSH SCH ×2 (08:55→21:00)
[2016-11-01] MEDS: SENNOSIDES 8.6 MG TAB PO SCH (21:00)
[2016-11-01] MEDS: EZETIMIBE 10 MG TAB PO SCH (21:51)
[2016-11-01] MEDS: PRAVASTATIN SOD 40 MG TAB PO SCH (21:51)
[2016-11-02] VITALS (25 sets, daily range): BP systolic 97–125; BP diastolic 61–68; PULSE 85–118; RESP 18; TEMP 97.8–99; O2SAT 93–98
[2016-11-02] MEDS: PANTOPRAZOLE SOD 40 MG DELAYED RELEASE TAB PO SCH (06:00)
[2016-11-02] MEDS: INSULIN ASPART SUPPLEMENTAL SCALE SQ SCH ×4 (06:17→20:44)
[2016-11-02] MEDS: POLYETHYLENE GLYCOL 17 GM PKG PO SCH (08:27)
[2016-11-02] MEDS: MAGNESIUM HYDROXIDE SUSP 30 ML CUP PO SCH (08:27)
[2016-11-02] MEDS: DOCUSATE SODIUM 100 MG CAP PO SCH ×2 (08:27→20:44)
[2016-11-02] MEDS: ASPIRIN 81 MG CHEW TAB PO SCH (08:28)
[2016-11-02] MEDS: INSULIN DETEMIR 100 UNITS/ML VIAL SQ SCH (08:28)
[2016-11-02] MEDS: MULTIVITAMINS/MINERALS THERAPEUTIC TAB PO SCH (08:28)
[2016-11-02] MEDS: AMIODARONE 200 MG TAB PO SCH ×2 (08:28→20:43)
[2016-11-02] MEDS: amLODIPine BESYLATE 5 MG TAB PO SCH (08:28)
[2016-11-02] MEDS: SODIUM CHLORIDE 0.9% FLUSH 5 ML FLUSH IV FLUSH SCH ×2 (08:28→22:33)
[2016-11-02] MEDS ORDERED: POTASSIUM CHLORIDE 10 MEQ CONTROLLED RELEASE TAB PO ONE (09:30)
[2016-11-02] MEDS ORDERED: FUROSEMIDE 40 MG/4 ML VIAL IV PUSH ONE (09:30)
[2016-11-02] MEDS: CARVEDILOL 3.125 MG TAB PO SCH ×3 (10:00→22:33)
[2016-11-02 10:23] LABS: AUTOMATED NEUTROPHIL # 8.6 TH/MM3 (1.8-7.7); BASOPHIL # 0.1 TH/MM3 (0-0.2); BASOPHIL % 0.8 % (0.0-2.0); EOSINOPHIL # 0.2 TH/MM3 (0-0.4); EOSINOPHIL % 1.5 % (0.0-4.0); HEMATOCRIT 34.4 % (35.0-46.0); LYMPH % 13.4 % (9.0-44.0); LYMPHOCYTE # 1.6 TH/MM3 (1.0-4.8); MEAN CELL VOLUME 96.4 FL (80.0-100.0); MEAN CORPUSCULAR HEMOGLOBIN 32.5 PG (27.0-34.0); MEAN CORPUSCULAR HGB CONC 33.7 % (32.0-36.0); MONO % 10.2 % (0.0-8.0); NEUT % 74.1 % (16.0-70.0); PLATELET COUNT 183 TH/MM3 (150-450); RED BLOOD COUNT 3.57 MIL/MM3 (4.00-5.30); RED CELL DISTRIBUTION WIDTH 12.8 % (11.6-17.2); WHITE BLOOD COUNT 11.6 TH/MM3 (4.0-11.0)
[2016-11-02 10:24] LABS: HEMO FLAGS AUTO DIFF
[2016-11-02 10:42] LABS: BICARBONATE 25.4 MEQ/L (21.0-32.0); POTASSIUM 4.8 MEQ/L (3.5-5.1)
--- NOTE | 2016-11-02 10:43 | RADRPT ---
EXAM DATE/TIME: 11/02/2016 09:03 [facility] COMPARISON: CHEST SINGLE AP, October 30, 2016, 4:54. INDICATIONS : Pneumonia, atelectasis, chest tube removal. MEDICAL HISTORY : None. SURGICAL HISTORY : None. ENCOUNTER: Subsequent ACUITY: 3 days PAIN SCORE: Non-responsive. FINDINGS: Pacemaker is implanted on the left. The right chest tube has been removed. There is no pneumothorax . Moderate bibasilar parenchymal changes persists. The heart and pulmonary vascularity are normal. CONCLUSION: Negative for pneumothorax. Bibasilar parenchymal changes increasing on the right. Roge Kimbrough MD FACR on November 02, 2016 at 10:40 Board Certified Radiologist. This report was verified electronically.
[2016-11-02 10:59] LABS: BANDS 2 % (0-6); EOSINOPHILS 1 % (0-4); NEUTROPHIL # MANUAL DIFF 8.6 TH/MM3 (1.8-7.7); POLYS (SEG NEUTROPHILS) 72 % (16-70); WBC DIFF SAMPLE 100
[2016-11-02 11:00] LABS: PLATELET ESTIMATE SMEAR NORMAL (NORMAL); PLATELET MORPHOLOGY NORMAL (NORMAL); SCAN/DIFF FINAL DIFF MANUAL
[2016-11-02 11:36] LABS: PROTHROMBIN TIME - PATIENT 11.5 SEC (9.8-11.6)
[2016-11-02] MEDS: RESP: IPRATROPIUM 0.5 MG/2.5 ML NEB NEB SCH ×3 (11:37→21:07)
--- NOTE | 2016-11-02 12:05 | PD.CAR.PN ---
CVT Progress Note CVT: POD #: 4 Subjective/Hospital Course: 76/ female hx of recent worsening dyspnea on exertion with palpitations/ hx of severe MR/ mitral stenosis, cardiomyopathy with EF 2.-25% BI V ICD PMH: Mitral valve disease, mild CAD, afib, CM, CHF, DM, HTN, hgb aic 8.2 surgery: 10/29 Minimally invasive MVR with a 27 Mosaic tissue valve, JHONATAN, Left femoral cutdown for cannulation, CPB 3300 crystalloid, 1300EBL, 650 cell saver, urine 420 extubated after surgery 10/30 required 100% NRB this am , now weaned to 6 liter nasal cannula right lower lobe atelectasis, small effusion BIV pacer interrogated post surgery low urine output during night , weaned off dobutamine and epi gtt gentle diuresis this am , mild metabolic acidosis by GEM/ s/p 2 amps NA bicarb, repeat GEM improved , eval for transfer to stepdown later today 10/[address] still draining serous output. Maintain until tomorrow Ambulate 2/5 D/C CT Discharge planning 11/02 will start coumadin, remains in intermittent afib, also s/p Tissue MVR coumadin teaching, gentle diuresis increase IS, ezpap, acapella re-add coreg and low dose olivia if tolerates , last EF 50% eval for dc to rehab in am Objective: GENERAL: SKIN: Warm and dry./ incision intact right upper chest wall, some ecchymosis, healing well HEAD: Normocephalic. EYES: No scleral icterus. No injection or drainage. NECK: Supple, trachea midline. No JVD or lymphadenopathy. CARDIOVASCULAR: irregular rate and rhythm without murmurs, gallops, or rubs. mild general edema RESPIRATORY: coarse bilateral breath sounds Breath sounds equal bilaterally. No accessory muscle use. GASTROINTESTINAL: Abdomen soft, non-tender, nondistended. MUSCULOSKELETAL: No cyanosis, or edema. BACK: Nontender without obvious deformity. No CVA tenderness. Vital Signs Date Time Temp Pulse Resp B/P Pulse Ox O2 Delivery O2 Flow Rate FiO2 11/02/16 11:52 118 11/02/16 11:52 95 Room Air 11/02/16 11:52 98.0 90 18 121/67 95 11/02/16 10:49 86 11/02/16 09:00 85 11/02/16 08:45 118 11/02/16 08:45 98.1 116 18 124/68 96 11/02/16 08:45 96 Nasal Cannula 2.00 11/02/16 07:52 98 Nasal Cannula 2.00 11/02/16 04:00 97 11/02/16 03:45 99.0 94 18 125/67 98 11/02/16 03:45 98 Nasal Cannula 2.00 11/02/16 03:00 96 11/02/16 02:00 97 11/02/16 01:00 97 11/02/16 00:00 97 11/01/16 23:15 98.8 92 18 115/57 98 11/01/16 23:15 98 Nasal Cannula 2.00 11/01/16 23:00 96 11/01/16 22:00 97 11/01/16 21:54 97 Nasal Cannula 2.00 11/01/16 21:00 97 11/01/16 20:00 97 11/01/16 20:00 98.8 95 18 125/58 98 11/01/16 20:00 98 Nasal Cannula 2.00 11/01/16 19:00 104 11/01/16 18:22 97 11/01/16 18:00 106 11/01/16 17:00 97 11/01/16 16:22 98.4 92 18 110/56 98 11/01/16 16:22 98 Nasal Cannula 2.00 11/01/16 16:00 90 11/01/16 15:00 112 11/01/16 14:00 98 11/01/16 13:00 85 11/01/16 12:00 99 Labs: Laboratory Tests Test 11/02/16 11/02/16 10:08 11:17 White Blood Count 11.6 TH/MM3 (4.0-11.0) Red Blood Count 3.57 MIL/MM3 (4.00-5.30) Hemoglobin 11.6 GM/DL (11.6-15.3) Hematocrit 34.4 % (35.0-46.0) Mean Corpuscular Volume 96.4 FL (80.0-100.0) Mean Corpuscular Hemoglobin 32.5 PG (27.0-34.0) Mean Corpuscular Hemoglobin 33.7 % Concent (32.0-36.0) Red Cell Distribution Width 12.8 % (11.6-17.2) Platelet Count 183 TH/MM3 (150-450) Mean Platelet Volume 9.4 FL (7.0-11.0) Neutrophils (%) (Auto) 74.1 % (16.0-70.0) Lymphocytes (%) (Auto) 13.4 % (9.0-44.0) Monocytes (%) (Auto) 10.2 % (0.0-8.0) Eosinophils (%) (Auto) 1.5 % (0.0-4.0) Basophils (%) (Auto) 0.8 % (0.0-2.0) Neutrophils # (Auto) 8.6 TH/MM3 (1.8-7.7) Lymphocytes # (Auto) 1.6 TH/MM3 (1.0-4.8) Monocytes # (Auto) 1.2 TH/MM3 (0-0.9) Eosinophils # (Auto) 0.2 TH/MM3 (0-0.4) Basophils # (Auto) 0.1 TH/MM3 (0-0.2) CBC Comment AUTO DIFF Differential Total Cells 100 Counted Neutrophils % (Manual) 72 % (16-70) Band Neutrophils % 2 % (0-6) Lymphocytes % 14 % (9-44) Monocytes % 11 % (0-8) Eosinophils % 1 % (0-4) Neutrophils # (Manual) 8.6 TH/MM3 (1.8-7.7) Differential Comment FINAL DIFF MANUAL Platelet Estimate NORMAL (NORMAL) Platelet Morphology Comment NORMAL (NORMAL) Red Cell Morphology Comment NORMAL (NORMAL) Hematology Comments Sodium Level 136 MEQ/L (136-145) Potassium Level 4.8 MEQ/L (3.5-5.1) Chloride Level 103 MEQ/L (98-107) Carbon Dioxide Level 25.4 MEQ/L (21.0-32.0) Anion Gap 8 MEQ/L (5-15) Blood Urea Nitrogen 33 MG/DL (7-18) Creatinine 0.83 MG/DL (0.50-1.00) Estimat Glomerular Filtration 66 ML/MIN (>89) Rate Random Glucose 201 MG/DL (74-106) Calcium Level 7.8 MG/DL (8.5-10.1) Prothrombin Time 11.5 SEC (9.8-11.6) Prothromb Time International 1.0 RATIO Ratio Result Diagram: 11/02/16 1008 11/02/16 1008 Telemetry: intermittent V paced, afib (1) Mitral regurgitation (2) S/P MVR (mitral valve replacement) Plan: on ASA, start coumadin todau resume coreg dose of diuretic today pulm toileting, nebs, ezpap OOB, ambulate eval for rehab (3) Combined systolic and diastolic congestive heart failure Plan: resumed olivia/ arb when creatinine improved (4) CHF (congestive heart failure), NYHA class III Plan: will need scheduled lasix (5) Diabetes mellitus Plan: on insulin sliding, scale continue levemir, 10 units qam, 5 units qpm diabetic diet automotive internet sales consultant consult (6) Hypertension Plan: stable at this time Kailee Bustamante Nov 02, 2016 12:05
[2016-11-02] MEDS ORDERED: AMIODARONE 200 MG TAB PO ONE (12:30)
[2016-11-02] MEDS: WARFARIN SOD 5 MG TAB PO SCH (16:38)
[2016-11-02] MEDS: EZETIMIBE 10 MG TAB PO SCH (20:43)
[2016-11-02] MEDS: PRAVASTATIN SOD 40 MG TAB PO SCH (20:43)
[2016-11-02] MEDS: SENNOSIDES 8.6 MG TAB PO SCH (20:44)
[2016-11-02] MEDS ORDERED: INSULIN DETEMIR 100 UNITS/ML VIAL SQ SCH (21:00)
[2016-11-03] VITALS (17 sets, daily range): BP systolic 98–121; BP diastolic 58–72; PULSE 87–110; RESP 18; TEMP 98.2–98.6; O2SAT 95–99
[2016-11-03] MEDS: RESP: IPRATROPIUM 0.5 MG/2.5 ML NEB NEB SCH (03:22)
[2016-11-03 04:16] LABS: INTERNATIONAL NORMALIZED RATIO 1.1 RATIO; PROTHROMBIN TIME - PATIENT 12.3 SEC (9.8-11.6)
[2016-11-03 04:33] LABS: BICARBONATE 28.7 MEQ/L (21.0-32.0); POTASSIUM 4.5 MEQ/L (3.5-5.1)
[2016-11-03] MEDS: PANTOPRAZOLE SOD 40 MG DELAYED RELEASE TAB PO SCH (06:00)
[2016-11-03] MEDS: INSULIN ASPART SUPPLEMENTAL SCALE SQ SCH ×3 (06:26→16:00)
[2016-11-03] MEDS ORDERED: INSULIN DETEMIR 100 UNITS/ML VIAL SQ SCH (07:00)
[2016-11-03] MEDS: DOCUSATE SODIUM 100 MG CAP PO SCH (09:00)
[2016-11-03] MEDS: CARVEDILOL 3.125 MG TAB PO SCH ×2 (09:00→09:26)
[2016-11-03] MEDS: MAGNESIUM HYDROXIDE SUSP 30 ML CUP PO SCH (09:00)
[2016-11-03] MEDS: POLYETHYLENE GLYCOL 17 GM PKG PO SCH (09:00)
[2016-11-03] MEDS: MULTIVITAMINS/MINERALS THERAPEUTIC TAB PO SCH (09:26)
[2016-11-03] MEDS: ASPIRIN 81 MG CHEW TAB PO SCH (09:26)
[2016-11-03] MEDS: AMIODARONE 200 MG TAB PO SCH (09:27)
[2016-11-03] MEDS: SODIUM CHLORIDE 0.9% FLUSH 5 ML FLUSH IV FLUSH SCH (09:27)
[2016-11-03] MEDS ORDERED: DOCUSATE SODIUM 100 MG CAP PO PRN (10:45)
[2016-11-03] MEDS ORDERED: MAGNESIUM HYDROXIDE SUSP 30 ML CUP PO PRN (10:45)
[2016-11-03] MEDS ORDERED: SENNOSIDES 8.6 MG TAB PO PRN (10:45)
[2016-11-03] MEDS ORDERED: POLYETHYLENE GLYCOL 17 GM PKG PO PRN (10:45)
--- NOTE | 2016-11-03 10:49 | PD.CAR.PN ---
CVT Progress Note CVT: POD #: 5 Subjective/Hospital Course: 76/ female hx of recent worsening dyspnea on exertion with palpitations/ hx of severe MR/ mitral stenosis, cardiomyopathy with EF 2.-25% BI V ICD PMH: Mitral valve disease, mild CAD, afib, CM, CHF, DM, HTN, hgb aic 8.2 surgery: 10/29 Minimally invasive MVR with a 27 Mosaic tissue valve, JHONATAN, Left femoral cutdown for cannulation, CPB 3300 crystalloid, 1300EBL, 650 cell saver, urine 420 extubated after surgery 10/30 required 100% NRB this am , now weaned to 6 liter nasal cannula right lower lobe atelectasis, small effusion BIV pacer interrogated post surgery low urine output during night , weaned off dobutamine and epi gtt gentle diuresis this am , mild metabolic acidosis by GEM/ s/p 2 amps NA bicarb, repeat GEM improved , eval for transfer to stepdown later today 10/[address] still draining serous output. Maintain until tomorrow Ambulate 2 D/C CT Discharge planning 11/02 will start coumadin, remains in intermittent afib, also s/p Tissue MVR coumadin teaching, gentle diuresis increase IS, ezpap, acapella re-add coreg and low dose olivia if tolerates , last EF 50% eval for dc to rehab in am 11/03 eval for possible dc today for rehab long acting insulin held BGM 70 was on NPH long acting at home has hx of urinary incontinence + BM change GI motility meds to prn Objective: Vital Signs Date Time Temp Pulse Resp B/P Pulse Ox O2 Delivery O2 Flow Rate FiO2 11/03/16 10:00 97 11/03/16 09:00 93 11/03/16 09:00 95 Nasal Cannula 2.00 11/03/16 08:00 98.6 87 18 98/64 95 11/03/16 08:00 96 11/03/16 07:00 91 11/03/16 06:00 99 11/03/16 05:00 89 11/03/16 04:25 98.2 93 18 106/72 96 11/03/16 04:20 95 Nasal Cannula 2.00 11/03/16 04:00 89 11/03/16 03:00 89 11/03/16 02:00 95 11/03/16 01:00 95 11/03/16 00:00 98.2 110 18 121/66 96 11/03/16 00:00 95 Nasal Cannula 2.00 11/03/16 00:00 89 11/02/16 23:00 85 11/02/16 22:00 94 11/02/16 21:07 93 Nasal Cannula 2.00 11/02/16 21:00 95 11/02/16 20:00 89 11/02/16 19:45 97.8 99 18 97/65 96 11/02/16 19:45 95 Nasal Cannula 2.00 11/02/16 19:44 89 Room Air 11/02/16 19:00 95 11/02/16 18:07 89 11/02/16 17:25 98 11/02/16 16:04 91 11/02/16 15:29 98.2 90 18 108/61 93 11/02/16 15:29 93 Room Air 11/02/16 15:29 85 11/02/16 14:05 89 11/02/16 13:27 89 11/02/16 12:03 89 11/02/16 11:52 118 11/02/16 11:52 95 Room Air 11/02/16 11:52 98.0 90 18 121/67 95 11/02/16 10:49 86 Labs: Laboratory Tests Test 11/03/16 03:43 Prothrombin Time 12.3 SEC (9.8-11.6) Prothromb Time International 1.1 RATIO Ratio Sodium Level 139 MEQ/L (136-145) Potassium Level 4.5 MEQ/L (3.5-5.1) Chloride Level 102 MEQ/L (98-107) Carbon Dioxide Level 28.7 MEQ/L (21.0-32.0) Anion Gap 8 MEQ/L (5-15) Blood Urea Nitrogen 35 MG/DL (7-18) Creatinine 0.79 MG/DL (0.50-1.00) Estimat Glomerular Filtration 70 ML/MIN (>89) Rate Random Glucose 79 MG/DL (74-106) Calcium Level 8.0 MG/DL (8.5-10.1) Result Diagram: 11/02/16 1008 11/03/16 5298 EKG: V paced (1) Mitral regurgitation (2) S/P MVR (mitral valve replacement) Plan: ASA, coumadin coreg pulm toileting, nebs, ezpap OOB, ambulate eval for rehab today (3) Combined systolic and diastolic congestive heart failure Plan: resumed olivia/ arb when creatinine improved (4) CHF (congestive heart failure), NYHA class III Plan: scheduled lasix (5) Diabetes mellitus Plan: dc long acting insulin diabetic diet primary special educator consult (6) Hypertension Plan: stable at this time Kailee Bustamante Nov 03, 2016 10:49
[2016-11-03] MEDS ORDERED: FUROSEMIDE 20 MG/2 ML VIAL IV PUSH ONE (14:15)
[2016-11-03] MEDS ORDERED: POTASSIUM CHLORIDE 8 MEQ CONTROLLED RELEASE TAB PO ONE (14:15)
[2016-11-03] MEDS ORDERED: DOCU1CAP39 PO (14:24)
[2016-11-03] MEDS ORDERED: LISI2.5T3 PO (14:24)
[2016-11-03] MEDS ORDERED: CARV3.125 PO (14:24)
[2016-11-03] MEDS ORDERED: LEVEMIR SQ (14:24)
[2016-11-03] MEDS ORDERED: COUM5TAB PO (14:24)
[2016-11-03] MEDS ORDERED: AMIO200T PO (14:24)
[2016-11-03] MEDS ORDERED: NOVOLOGP2 SQ (14:27)
--- NOTE | 2016-11-03 15:03 | HHI.DS ---
Discharge Summary Admission Date Oct 29, 2016 at 05:46 Discharge Date: Nov 03, 2016 Admitting Diagnosis dyspnea, severe MR (1) Mitral regurgitation Diagnosis: Principal (2) Mitral stenosis Diagnosis: Principal (3) Diabetes mellitus Diagnosis: Principal (4) Hypertension Diagnosis: Principal (5) CHF (congestive heart failure), NYHA class III Diagnosis: Secondary (6) Combined systolic and diastolic congestive heart failure Diagnosis: Secondary (7) S/P MVR (mitral valve replacement) Diagnosis: Secondary Procedures 2/2 Minimally invasive MVR with a 27 Mosaic tissue valve JHONATAN Left femoral cutdown for cannulation CPB Brief History 76/ female hx of recent worsening dyspnea on exertion with palpitations/ hx of severe MR/ mitral stenosis, cardiomyopathy with EF 2.-25% > 50% last echo BI V ICD PMH: Mitral valve disease, mild CAD, afib, CM, CHF, DM, HTN, hgb aic 8.2 CBC/BMP: 11/02/16 1008 11/03/16 0343 Significant Findings Laboratory Tests Test 11/02/16 11/03/16 10:08 03:43 White Blood Count 11.6 TH/MM3 (4.0-11.0) Red Blood Count 3.57 MIL/MM3 (4.00-5.30) Hematocrit 34.4 % (35.0-46.0) Neutrophils (%) (Auto) 74.1 % (16.0-70.0) Monocytes (%) (Auto) 10.2 % (0.0-8.0) Neutrophils # (Auto) 8.6 TH/MM3 (1.8-7.7) Monocytes # (Auto) 1.2 TH/MM3 (0-0.9) Neutrophils % (Manual) 72 % (16-70) Monocytes % 11 % (0-8) Neutrophils # (Manual) 8.6 TH/MM3 (1.8-7.7) Blood Urea Nitrogen 33 MG/DL (7-18) 35 MG/DL (7-18) Estimat Glomerular Filtration 66 ML/MIN (>89) 70 ML/MIN (>89) Rate Random Glucose 201 MG/DL (74-106) Calcium Level 7.8 MG/DL 8.0 MG/DL (8.5-10.1) (8.5-10.1) Prothrombin Time 12.3 SEC (9.8-11.6) Imaging Last Impressions Chest X-Ray 2/6/17 0930 Signed Impressions: Service Date/Time: Wednesday, November 02, 2016 09:03 - CONCLUSION: Negative for pneumothorax. Bibasilar parenchymal changes increasing on the right. Roge Kimbrough MD FACR PE at Discharge GENERAL: SKIN: Warm and dry./ incision intact right chest wall HEAD: Normocephalic. EYES: No scleral icterus. No injection or drainage. NECK: Supple, trachea midline. No JVD or lymphadenopathy. CARDIOVASCULAR: Regular rate and rhythm without murmurs, gallops, or rubs. pacer insitu left upper chest wall RESPIRATORY: diminished in bases Breath sounds equal bilaterally. No accessory muscle use. GASTROINTESTINAL: Abdomen soft, non-tender, nondistended. MUSCULOSKELETAL: No cyanosis, or edema. BACK: Nontender without obvious deformity. No CVA tenderness. Hospital Course surgery: 10/29 Minimally invasive MVR with a 27 Mosaic tissue valve, JHONATAN, Left femoral cutdown for cannulation, CPB 3300 crystalloid, 1300EBL, 650 cell saver, urine 420 extubated after surgery 10/30 required 100% NRB this am , now weaned to 6 liter nasal cannula right lower lobe atelectasis, small effusion BIV pacer interrogated post surgery low urine output during night , weaned off dobutamine and epi gtt gentle diuresis this am , mild metabolic acidosis by GEM/ s/p 2 amps NA bicarb, repeat GEM improved , eval for transfer to stepdown later today 10/[address] still draining serous output. Maintain until tomorrow Ambulate 2/5 D/C CT Discharge planning 11/02 will start coumadin, remains in intermittent afib, also s/p Tissue MVR coumadin teaching, gentle diuresis increase IS, ezpap, acapella re-add coreg and low dose olivia if tolerates , last EF 50% eval for dc to rehab in am 11/03 eval for possible dc today for rehab long acting insulin held BGM 70 was on NPH long acting at home has hx of urinary incontinence + BM change GI motility meds to prn Pt Condition on Discharge: Good Discharge Disposition: Rehab Inpatient Discharge Instructions DIET: Follow Instructions for: Diabetic Diet Activities you can perform: Full Weight Bearing, Shower Only-No Bath Activities to avoid: Lifting/Bending, Driving Additional Activity Instructio: no lifting >8lbs or gallon of milk Follow up Referrals: Appointment for Follow Up with Kimani Hayden M.d. Cardiology - 4 Weeks with ESTEV[facility] CHEW Surgical - 2 Weeks with Hattie Pappas MD New Orders: 2D ECHO - 2 Weeks BASIC METABOLIC PROF - 2 Weeks CBC NO DIFF - 2 Weeks PT/INR - 2-3 Days X-RAY CHEST PA & LAT - 2 Weeks New Medications: Insulin Aspart Inj (Novolog Inj) 1,000 Unit/10 Ml Vial 2-12 UNITS SQ ACHS Max dose at bedtime ( ) units; sugars less than 70,(0) units ; sugars 150-199,(2) units; sugars 200-249,(4) units; sugars 250-299,(7) units; sugars 300-349,(10) units; sugars greater than 349,(12)units Blood Sugar Management #10 Ref 0 ML Lisinopril (Lisinopril) 2.5 Mg Tab 2.5 MG PO DAILY hold SBP<100 #30 Ref 0 TAB Amiodarone (Amiodarone) 200 Mg Tab 200 MG PO BID hear rhythm #28 Ref 0 TAB Carvedilol (Coreg) 3.125 Mg Tab 3.125 MG PO Q12HR hold SBP<100 HR<60 Blood Pressure Management #60 Ref 2 TAB Docusate Sodium (Dok) 100 Mg Cap 100 MG PO DAILY PRN CONSTIPATION #30 CAP Insulin Detemir Inj (Levemir Inj) 1,000 unit/ 10 ML Vial 5 UNITS SQ AC BREAKFAST Blood Sugar Management #1 Ref 1 INJECTION Warfarin (Coumadin) 5 Mg Tab 5 MG PO DAILY@1600 INR 2-2.5 x 8 weeks, hold INR>3.5 MVR #30 TAB Continued Medications: Aspirin DR (Aspirin EC) 81 Mg Tabdr 81 MG PO DAILY Ref 0 TAB Ezetimibe-Simvastatin (Vytorin) 10-20 Mg Tab 1 TAB PO HS #30 Ref 0 TAB Furosemide (Lasix) 20 Mg Tab 20 MG PO DAILY #30 Ref 0 TAB Multiple Vitamins W/ Minerals (Multivitamin Adults) 1 Tab 1 TAB PO DAILY Nutritional Supplement Ref 0 TAB Discontinued Medications: Carvedilol (Coreg) 12.5 Mg Tab 12.5 MG PO BID #60 Ref 0 TAB Digoxin (Lanoxin) 0.125 Mg Tab 0.125 MG PO DAILY Regulate Heart Beat #30 Ref 0 TAB Insulin Detemir Inj (Levemir Flextouch Pen Inj) 300 unit/3 ML Pen 30 UNITS SQ Blood Sugar Management Ref 0 PEN Lisinopril (Lisinopril) 5 Mg Tab 5 MG PO DAILY Blood Pressure Management #30 Ref 0 TAB Losartan (Losartan) 50 Mg Tab 50 MG PO BID Blood Pressure Management #30 Ref 0 TAB Kailee Bustamante Nov 03, 2016 15:03
[2016-11-03] MEDS: WARFARIN SOD 5 MG TAB PO SCH (16:54)
[2016-11-04] MEDS ORDERED: INSULIN DETEMIR 100 UNITS/ML VIAL SQ SCH (07:00)
== END 2016-11-03 17:50 | DRG 220 ==
LOC: HSDI 10-29 05:46 → HCVR 10-29 13:12 → HCPC 10-30 13:40
PROVIDERS: ADMIT Thoracic Surgery (Cardiothoracic Vascular Surgery); ATTEND Thoracic Surgery (Cardiothoracic Vascular Surgery)
PROC: B246ZZ4 Ultrasonography of Right and Left Heart, Transesophageal (ICD-10-PCS; 2016-10-29)
PROC: 02R Heart and Great Vessels, Replacement (ICD-10-PCS; principal; 2016-10-29 07:13)
PROC: 5A1221Z Performance of Cardiac Output, Continuous (ICD-10-PCS; 2016-10-29 07:13)
DX: I34.0 Nonrheumatic mitral (valve) insufficiency (principal); J90 Pleural effusion, not elsewhere classified; E87.2 Acidosis; I42.9 Cardiomyopathy, unspecified; I50.40 Unspecified combined systolic (congestive) and diastolic (congestive) heart failure; J98.11 Atelectasis; I34.2 Nonrheumatic mitral (valve) stenosis; I25.10 Atherosclerotic heart disease of native coronary artery without angina pectoris; E11.9 Type 2 diabetes mellitus without complications; I10 Essential (primary) hypertension; Z79.4 Long term (current) use of insulin; Z79.899 Other long term (current) drug therapy
CPT/HCPCS: 36430; 71010; 76937; 80048; 82948; 83735; 85007; 85014; 85025; 85027; 85610; 86850; 86900; 86901; 86920; 88305; 93005; 93318; 94002; 94150; 94640; 94664; 94667; 94668; C9248; C9399; J0131; J0282; J0690; J1250; J1265; J1644; J1815; J1940; J2150; J2250; J2370; J2405; J2720; J2930; J3010; J3370; J3475; J3480; J7040; J7050; J7120; J7644; P9016; P9047

== ENCOUNTER 2017-03-04 11:15 | Inpatient (IN) | payer MEDICARE, OTHER ==
[~2017-03-04] VITALS: Ht 156.2 cm; Wt 68.3 kg
[2017-03-04] VITALS (17 sets, daily range): BP systolic 81–132; BP diastolic 56–77; PULSE 72–134; RESP 18–26; TEMP 97.3–97.7; O2SAT 90–98
[~2017-03-04 11:15] MED LIST changes: +AMIO200T PO; -CARV12.5 PO; +CARV3.125 PO; +COUM5TAB PO; +DOCU1CAP39 PO; -INSU1INJ5 SQ; -LANO0.1212 PO; +LEVEMIR SQ; -LISI-519 PO; +LISI2.5T3 PO; -LOSA50TA PO; +NOVOLOGP2 SQ
--- NOTE | 2017-03-04 11:40 | PD ---
HPI Chief Complaint: Cardiac Complaint Time Seen by Provider: 11:34 Travel History International Travel<30 days: No Contact w/Intl Traveler<30days: No Traveled to known affect area: No History of Present Illness HPI PALPITATIONS WHILE AT DR SHEETS'S OFFICE, APPARENTLY HAD VALVE REPAIR AND PACEMAKER PLACED THIS YEAR.....DENIES CP/SOB/OR ANY OTHER COMPLAINTS OTHER THAN PALPITATIONS PFSH Past Medical History Hx Anticoagulant Therapy: Yes (COUMADIN) Cancer: No Cardiovascular Problems: Yes (VALVE REPLACEMENT, ) Chest Pain: No Diabetes: Yes Endocrine: Yes Gastrointestinal Disorders: No Glaucoma: Yes (BILATERAL EYES) Genitourinary: No Hepatitis: No Hiatal Hernia: No Hypertension: Yes Immune Disorder: No Musculoskeletal: No Neurologic: No Psychiatric: No Reproductive: No Respiratory: No Integumentary: No Thyroid Disease: No Past Surgical History AICD: No Body Medical Devices: AICD Eye Surgery: Yes (L CATATRACT) Gynecologic Surgery: Yes (HYSTERECTOMY) Hysterectomy: Yes Joint Replacement: No Pacemaker: No Thoracic Surgery: Yes (AICD) Social History Tobacco Use: No Substance Use: No Allergies-Medications (Allergen,Severity, Reaction): Coded Allergies: No Known Allergies (Verified , 03/04/17) Reported Meds & Prescriptions Reported Meds & Active Scripts Active Novolog Inj (Insulin Aspart) 1,000 Unit/10 Ml Vial 2-12 Units SQ ACHS Max dose at bedtime ( ) units; sugars less than 70,(0) units; sugars 150-199,(2) units; sugars 200-249,(4) units; sugars 250-299,(7) units; sugars 300-349,(10) units; sugars greater than 349,(12)units Lisinopril 2.5 Mg Tab 2.5 Mg PO DAILY hold SBP<100 Levemir Inj (Insulin Detemir) 1,000 unit/ 10 ML Vial 5 Units SQ AC BREAKFAST Coreg (Carvedilol) 3.125 Mg Tab 3.125 Mg PO Q12HR hold SBP<100 HR<60 Amiodarone (Amiodarone HCl) 200 Mg Tab 200 Mg PO BID Reported Jantoven (Warfarin) 2 Mg Tab 2 Mg PO DAILY Losartan (Losartan Potassium) 50 Mg Tab 50 Mg PO DAILY Levoxyl (Levothyroxine Sodium) 75 Mcg Tab 75 Mcg PO DAILY Prednisone 10 Mg Tab 10 Mg PO DAILY Glimepiride 4 Mg Tab 4 Mg PO DAILY Take with breakfast or first main meal Digoxin 0.125 Mg Tab 0.125 Mg PO DAILY Klor-Con 10 (Potassium Chloride) 10 Meq Tab 10 Meq PO DAILY Vytorin (Ezetimibe-Simvastatin) 10-20 Mg Tab 1 Tab PO HS Lasix (Furosemide) 20 Mg Tab 40 Mg PO BID Aspirin EC (Aspirin) 81 Mg Tabdr 81 Mg PO DAILY Review of Systems Except as stated in HPI: all other systems reviewed are Neg Cardiovascular: Positive: Palpitations Physical Exam Narrative GENERAL: SKIN: Warm and dry. HEAD: Atraumatic. Normocephalic. EYES: Pupils equal and round. No scleral icterus. No injection or drainage. ENT: No nasal bleeding or discharge. Mucous membranes pink and moist. NECK: Trachea midline. No JVD. CARDIOVASCULAR: IRREG RATE, TACHYCARDIC, EQUAL PULSES THROUGHOUT RESPIRATORY: No accessory muscle use. Clear to auscultation. Breath sounds equal bilaterally. GASTROINTESTINAL: Abdomen soft, non-tender, nondistended. Hepatic and splenic margins not palpable. MUSCULOSKELETAL: Extremities without clubbing, cyanosis, or edema. No obvious deformities. NEUROLOGICAL: Awake and alert. No obvious cranial nerve deficits. Motor grossly within normal limits. Five out of 5 muscle strength in the arms and legs. Normal speech. PSYCHIATRIC: Appropriate mood and affect; insight and judgment normal. Data Data Last Documented VS Vital Signs Date Time Temp Pulse Resp B/P Pulse Ox O2 Delivery O2 Flow Rate FiO2 03/04/17 12:50 107 18 124/72 93 Room Air 03/04/17 11:17 97.7 Orders Ecg Monitoring (03/04/17 11:34) Blood Pressure (03/04/17 11:34) Iv Access Insert/Monitor (03/04/17 11:34) Oximetry (03/04/17 11:34) Vital Signs (03/04/17 11:34) Diltiazem Inj (Cardizem Inj) (03/04/17 11:45) Sodium Chloride 0.9% Flush (Ns Flush) (03/04/17 11:45) Electrocardiogram (03/04/17 11:34) Basic Metabolic Panel (Bmp) (03/04/17 11:34) B-Type Natriuretic Peptide (03/04/17 11:34) Ckmb (Isoenzyme) Profile (03/04/17 11:34) Complete Blood Count With Diff (03/04/17 11:34) Magnesium (Mg) (03/04/17 11:34) Prothrombin Time / Inr (Pt) (03/04/17 11:34) Act Partial Throm Time (Ptt) (03/04/17 11:34) Troponin I (03/04/17 11:34) Chest, Single Ap (03/04/17 11:34) Bilateral Bp Monitoring (03/04/17 11:34) Oxygen Administration (03/04/17 11:34) Sodium Chloride 0.9% Flush (Ns Flush) (03/04/17 11:45) Enoxaparin Inj (Lovenox Inj) (03/04/17 11:45) Diltiazem Inj (Cardizem Inj) (03/04/17 13:30) Labs Laboratory Tests Test 03/04/17 11:40 White Blood Count 8.5 TH/MM3 Red Blood Count 4.04 MIL/MM3 Hemoglobin 12.9 GM/DL Hematocrit 39.4 % Mean Corpuscular Volume 97.4 FL Mean Corpuscular Hemoglobin 32.0 PG Mean Corpuscular Hemoglobin 32.9 % Concent Red Cell Distribution Width 15.4 % Platelet Count 220 TH/MM3 Mean Platelet Volume 8.9 FL Neutrophils (%) (Auto) 77.3 % Lymphocytes (%) (Auto) 10.9 % Monocytes (%) (Auto) 9.3 % Eosinophils (%) (Auto) 1.6 % Basophils (%) (Auto) 0.9 % Neutrophils # (Auto) 6.6 TH/MM3 Lymphocytes # (Auto) 0.9 TH/MM3 Monocytes # (Auto) 0.8 TH/MM3 Eosinophils # (Auto) 0.1 TH/MM3 Basophils # (Auto) 0.1 TH/MM3 CBC Comment DIFF FINAL Differential Comment Prothrombin Time 14.2 SEC Prothromb Time International 1.3 RATIO Ratio Activated Partial 27.6 SEC Thromboplast Time Sodium Level 134 MEQ/L Potassium Level 4.9 MEQ/L Chloride Level 100 MEQ/L Carbon Dioxide Level 21.6 MEQ/L Anion Gap 12 MEQ/L Blood Urea Nitrogen 42 MG/DL Creatinine 1.78 MG/DL Estimat Glomerular Filtration 28 ML/MIN Rate Random Glucose 232 MG/DL Calcium Level 9.7 MG/DL Magnesium Level 2.0 MG/DL Total Creatine Kinase 41 U/L Troponin I LESS THAN 0.02 NG/ML B-Type Natriuretic Peptide 2273 PG/ML MDM Medical Decision Making Medical Screen Exam Complete: Yes Emergency Medical Condition: Yes Medical Record Reviewed: Yes Differential Diagnosis ANEMIA, INFECTION, DEHYDRATION OR ELECTROLYTE DISTURBANCE, TO BE CAUSING NEW ONSET AFIB WITH RVR Narrative Course SEE ABOVE Diagnosis Primary Impression: Atrial fibrillation with RVR Cody Soler MD Mar 04, 2017 11:40
[2017-03-04] MEDS ORDERED: ENOXAPARIN SODIUM 60 MG/0.6 ML SYRINGE SQ ONE (11:45)
[2017-03-04] MEDS ORDERED: DILTIAZEM HCL 25 MG/5 ML VIAL IV PUSH ONE (11:45)
[2017-03-04] MEDS ORDERED: SODIUM CHLORIDE 0.9% FLUSH 10 ML FLUSH IVF PRN ×2 (11:45)
[2017-03-04 11:52] LABS: AUTOMATED NEUTROPHIL # 6.6 TH/MM3 (1.8-7.7); BASOPHIL # 0.1 TH/MM3 (0-0.2); BASOPHIL % 0.9 % (0.0-2.0); EOSINOPHIL # 0.1 TH/MM3 (0-0.4); EOSINOPHIL % 1.6 % (0.0-4.0); HEMATOCRIT 39.4 % (35.0-46.0); HEMO FLAGS DIFF FINAL; LYMPH % 10.9 % (9.0-44.0); LYMPHOCYTE # 0.9 TH/MM3 (1.0-4.8); MEAN CELL VOLUME 97.4 FL (80.0-100.0); MEAN CORPUSCULAR HGB CONC 32.9 % (32.0-36.0); MONO % 9.3 % (0.0-8.0); NEUT % 77.3 % (16.0-70.0); PLATELET COUNT 220 TH/MM3 (150-450); RED BLOOD COUNT 4.04 MIL/MM3 (4.00-5.30); RED CELL DISTRIBUTION WIDTH 15.4 % (11.6-17.2); WHITE BLOOD COUNT 8.5 TH/MM3 (4.0-11.0)
[2017-03-04 12:03] LABS: APTT (PATIENT) 27.6 SEC (24.3-30.1); INTERNATIONAL NORMALIZED RATIO 1.3 RATIO; PROTHROMBIN TIME - PATIENT 14.2 SEC (9.8-11.6)
--- NOTE | 2017-03-04 12:05 | RADRPT ---
EXAM DATE/TIME: 03/04/2017 11:44 [facility] COMPARISON: CHEST SINGLE AP, November 02, 2016, 9:03. INDICATIONS : Shortness of breath. MEDICAL HISTORY : Congestive heart failure. SURGICAL HISTORY : CABG. Pacemaker. ENCOUNTER: Initial ACUITY: 2 days PAIN SCORE: 0/10 LOCATION: Bilateral chest FINDINGS: There is some small areas of linear opacity in the lateral right midlung and in the costophrenic angl e on the right side. Prior chest x-ray in October 2016 had demonstrated infiltrates in the lower ri ght lung with volume loss. The opacity seen on today's examination are in the same area and could re present residual infiltrate or scarring. The visualized portion of the left lung is clear. Both hem idiaphragms are well delineated. The heart is normal in size. Cardiac pacer leads in place. Deform ity of the proximal right humerus suggests old fracture, stable in appearance from prior. CONCLUSION: Linear non-consolidative infiltrates or scarring in the lateral right mid and lower lung. Roshan Ward MD on March 04, 2017 at 12:02 Board Certified Radiologist. This report was verified electronically.
[2017-03-04] MEDS ORDERED: POTA-243 PO (12:23)
[2017-03-04] MEDS ORDERED: JANT2TAB PO (12:23)
[2017-03-04] MEDS ORDERED: LOSA50TA PO (12:23)
[2017-03-04] MEDS ORDERED: LEVO75TA43 PO (12:23)
[2017-03-04] MEDS ORDERED: PRED10 PO (12:23)
[2017-03-04] MEDS ORDERED: GLIM4TAB PO (12:23)
[2017-03-04] MEDS ORDERED: DIGO0.12 PO (12:23)
[2017-03-04 12:32] LABS: ANION GAP 12 MEQ/L (5-15); BICARBONATE 21.6 MEQ/L (21.0-32.0); BLOOD UREA NITROGEN 42 MG/DL (7-18); CHLORIDE 100 MEQ/L (98-107); POTASSIUM 4.9 MEQ/L (3.5-5.1); SODIUM (NA) 134 MEQ/L (136-145)
[2017-03-04 12:33] LABS: GLOMERULAR FILTRATION RATE 28 ML/MIN (>89)
[2017-03-04 12:50] LABS: CREATINE KINASE 41 U/L (26-192)
[2017-03-04] MEDS ORDERED: DILTIAZEM HCL 25 MG/5 ML VIAL IV ONE (13:30)
[2017-03-04] MEDS ORDERED: DILTIAZEM INJ 125 MG in SODIUM CHLORIDE 0.9% INJ 100 ML IV SCH (13:45)
[2017-03-04] MEDS ORDERED: LACTULOSE SYRUP 20 GM/30 ML CUP PO PRN (14:30)
[2017-03-04] MEDS ORDERED: SODIUM CHLORIDE 0.9% FLUSH 10 ML FLUSH IV FLUSH PRN (14:30)
[2017-03-04] MEDS ORDERED: ONDANSETRON HCL 4 MG/2 ML VIAL IVP PRN (14:30)
[2017-03-04] MEDS ORDERED: SENNOSIDES 8.6 MG TAB PO PRN (14:30)
[2017-03-04] MEDS ORDERED: MAGNESIUM HYDROXIDE SUSP 30 ML CUP PO PRN (14:30)
[2017-03-04] MEDS ORDERED: BISACODYL 10 MG SUPP RECTAL PRN (14:30)
[2017-03-04] MEDS ORDERED: GLUCAGON 1 MG/ML VIAL OTHER PRN (14:45)
--- NOTE | 2017-03-04 15:24 | HHI.HP ---
HPI Service [facility] Primary Care Physician Alan Rockwell MD Admission Diagnosis NEW ONSET AFIB WITH RVR Diagnoses: Chief Complaint: Shortness of breath Palpitations Travel History International Travel<30 Days: No Contact w/Intl Traveler <30 Da: No Traveled to Known Affected Are: No History of Present Illness Written by Mary Kang, acting as scribe for Dr. Jacome on 03/04/17 at 14:21. This note was transcribed by scribe Mary HO. I, Dr. Patti Jacome personally performed the history, physical exam, and medical decision making; and confirmed the accuracy of the information in the transcribed note. Authenticated by Dr. Patti Jacome on 03/04/17 at 14:21. Mrs. Huerta is a 76-year-old female patient with a known history of atrial fibrillation, diabetes mellitus, congestive heart failure, hyperlipidemia, and mitral valve replacement in Oct 2016 who presented to the ED from Dr. Stubbs's office with complaints of shortness of breath and hypotension. Per patient, an EKG was performed and she was sent here. Patient states she's been feeling palpitations and shortness of breath intermittently for three days. Denies any recent or current chest pain. States that she has been unable to walk even short distances without feeling dyspneic. Patient states that she has noticed increasing bilateral leg swelling the past few days. Per patient, Dr. Stubbs had switched some of her medications and she has been unsure which ones he wants her to take and which ones he wants her to stop. Currently denies any shortness of breath or palpitations, lying comfortably in bed. Denies any recent fever, chills, chest pain, abdominal pain, nausea, vomiting, diarrhea, dysuria. Review of Systems Respiratory: COMPLAINS OF: Shortness of breath Cardiovascular: COMPLAINS OF: Palpitations, Dyspnea on Exertion, Lower Extremity Edema Except as stated in HPI: all other systems reviewed are Neg Past Family Social History Past Medical History Hyperlipidemia Type 2 Diabetes mellitus Atrial fibrillation Mitral valve replacement Oct 2016. Glaucoma Cardiomyopathy Combined systolic and diastolic CHF Arthrosclerosis Past Surgical History Hysterectomy Tonsillectomy Bi IVCD placement Mitral valve replacement Oct 2016 Reported Medications Novolog Inj (Insulin Aspart) 1,000 Unit/10 Ml Vial 2-12 Units SQ ACHS Max dose at bedtime ( ) units; sugars less than 70,(0) units; sugars 150-199,(2) units; sugars 200-249,(4) units; sugars 250-299,(7) units; sugars 300-349,(10) units; sugars greater than 349,(12)units Lisinopril 2.5 Mg Tab 2.5 Mg PO DAILY hold SBP<100 Levemir Inj (Insulin Detemir) 1,000 unit/ 10 ML Vial 5 Units SQ AC BREAKFAST Coreg (Carvedilol) 3.125 Mg Tab 3.125 Mg PO Q12HR hold SBP<100 HR<60 Amiodarone (Amiodarone HCl) 200 Mg Tab 200 Mg PO BID Reported Jantoven (Warfarin) 2 Mg Tab 2 Mg PO DAILY Losartan (Losartan Potassium) 50 Mg Tab 50 Mg PO DAILY Levoxyl (Levothyroxine Sodium) 75 Mcg Tab 75 Mcg PO DAILY Prednisone 10 Mg Tab 10 Mg PO DAILY Glimepiride 4 Mg Tab 4 Mg PO DAILY Take with breakfast or first main meal Digoxin 0.125 Mg Tab 0.125 Mg PO DAILY Klor-Con 10 (Potassium Chloride) 10 Meq Tab 10 Meq PO DAILY Vytorin (Ezetimibe-Simvastatin) 10-20 Mg Tab 1 Tab PO HS Lasix (Furosemide) 20 Mg Tab 40 Mg PO BID Aspirin EC (Aspirin) 81 Mg Tabdr 81 Mg PO DAILY Allergies: Coded Allergies: No Known Allergies (Verified , 03/04/17) Active Ordered Medications Current Medications Medications (Trade) Dose Ordered Sig/Amaris Route Start Time Stop Time Status Last Admin (NS Flush) 2 ml UNSCH PRN IVF 03/04/17 11:45 (NS Flush) 2 ml UNSCH PRN IVF 03/04/17 11:45 (Cordarone) 200 mg BID PO 03/04/17 21:00 UNV (Ecotrin Ec) 81 mg DAILY PO 03/05/17 09:00 UNV (Coreg) 3.125 mg Q12HR PO 03/04/17 21:00 UNV (Lanoxin) 0.125 mg DAILY PO 03/05/17 09:00 UNV (Lasix) 40 mg BID PO 03/04/17 21:00 UNV (Amaryl) 4 mg DAILY PO 03/05/17 09:00 UNV (Synthroid) 75 mcg DAILY PO 03/05/17 09:00 UNV (Cozaar) 50 mg DAILY PO 03/05/17 09:00 UNV (KCl) 10 meq DAILY PO 03/05/17 09:00 UNV (Deltasone) 10 mg DAILY PO 03/05/17 09:00 UNV (Coumadin) 2 mg DAILY PO 03/05/17 09:00 UNV Non-Formulary Medication 1 tab HS PO 03/04/17 21:00 UNV Non-Formulary Medication 2.5 mg DAILY PO 03/05/17 09:00 UNV Enoxaparin Sodium 60 mg 60 mg Q12H SQ 03/04/17 21:00 UNV (Cardizem Inj/NS Inj) 125 ml @ 0 mls/hr TITRATE IV 03/04/17 13:45 UNV Family History Patient is unaware of mother and fathers medical history. Does state that sister has a heart murmur. Social History Patient is . Denies any current or past tobacco use. Admits to occasional alcohol use. Denies any illicit drug use. Physical Exam Vital Signs Vital Signs Date Time Temp Pulse Resp B/P Pulse Ox O2 Delivery O2 Flow Rate FiO2 03/04/17 12:50 107 18 124/72 93 Room Air 03/04/17 12:00 109 03/04/17 11:58 110 112/64 98 03/04/17 11:55 133 03/04/17 11:39 134 18 132/77 97 Room Air 03/04/17 11:38 97 Room Air 03/04/17 11:38 97 Room Air 03/04/17 11:30 134 20 96 Room Air 03/04/17 11:17 97.7 128 20 97 Room Air Physical Exam GENERAL: Well-nourished, well-developed patient, in no apparent distress lying in bed comfortably. SKIN: No rashes, ecchymoses or lesions. Warm and dry. HEENT: Atraumatic. Normocephalic. Pupils equal round and reactive. Extraocular motions intact. No scleral icterus. No injection or drainage. Nose without bleeding. Airway patent. NECK: Trachea midline. No JVD or lymphadenopathy. Supple. CARDIOVASCULAR: Irregularly irregular rhythm. No murmur appreciated. RESPIRATORY: Clear to auscultation. Breath sounds equal bilaterally. No wheezes , rales, or rhonchi. GASTROINTESTINAL: Abdomen soft, non-tender, nondistended. No guarding. MUSCULOSKELETAL: Extremities without clubbing, cyanosis, or edema. No joint tenderness, effusion. Bilateral lower leg extremity edema, left great than right , 2+ pitting. NEUROLOGICAL: Awake and alert. Cranial nerves II through XII intact. Motor and sensory grossly within normal limits. Five out of 5 muscle strength in all muscle groups. Normal speech. Laboratory Laboratory Tests Test 03/04/17 11:40 White Blood Count 8.5 Red Blood Count 4.04 Hemoglobin 12.9 Hematocrit 39.4 Mean Corpuscular Volume 97.4 Mean Corpuscular Hemoglobin 32.0 Mean Corpuscular Hemoglobin 32.9 Concent Red Cell Distribution Width 15.4 Platelet Count 220 Mean Platelet Volume 8.9 Neutrophils (%) (Auto) 77.3 Lymphocytes (%) (Auto) 10.9 Monocytes (%) (Auto) 9.3 Eosinophils (%) (Auto) 1.6 Basophils (%) (Auto) 0.9 Neutrophils # (Auto) 6.6 Lymphocytes # (Auto) 0.9 Monocytes # (Auto) 0.8 Eosinophils # (Auto) 0.1 Basophils # (Auto) 0.1 CBC Comment DIFF FINAL Differential Comment Prothrombin Time 14.2 Prothromb Time International 1.3 Ratio Activated Partial 27.6 Thromboplast Time Sodium Level 134 Potassium Level 4.9 Chloride Level 100 Carbon Dioxide Level 21.6 Anion Gap 12 Blood Urea Nitrogen 42 Creatinine 1.78 Estimat Glomerular Filtration 28 Rate Random Glucose 232 Calcium Level 9.7 Magnesium Level 2.0 Total Creatine Kinase 41 Troponin I LESS THAN 0.02 B-Type Natriuretic Peptide 2273 Result Diagram: 03/04/17 1140 03/04/17 1140 Imaging Last Impressions Chest X-Ray 03/04/17 1134 Signed Impressions: Service Date/Time: February 11:44 - CONCLUSION: Linear non-consolidative infiltrates or scarring in the lateral right mid and lower lung. Roshan Ward MD Assessment and Plan Assessment and Plan Mrs. Huerta is a 76-year-old female patient with a known history of atrial fibrillation, diabetes mellitus, congestive heart failure, hyperlipidemia, and mitral valve replacement in Oct 2016 who presented to the ED from Dr. Stubbs's office with complaints of shortness of breath and hypotension. Per patient, an EKG was performed and she was sent here. Atrial fibrillation with RVR, acute on chronic - Given Cardizem 17 mg IV bolus in ED. Given another Cardizem IV 10 mg IV in ED. - Start Cardizem drip to keep HR < 90. Monitor BP closely. - Consult cardiology, patient known to Dr. Stubbs, appreciate recommendations. - Continue amiodarone 200 mg by mouth twice a day. - Continuous cardiac telemetry. - EKG reviewed, irregular and paced rhythm, with left bundle branch block noted. Combined systolic and diastolic congestive heart failure, exacerbation History of mitral valve replacement Oct 2016 on Coumadin Subtherapeutic INR - Per records, patient underwent bi IVICD in 2010 with an EF of 20-20% at that time. Last ECHO showing improvement EF of 50% in Sep 2016. - Continue home Coreg 3.125 mg PO q12hr. Continue aspirin 81 mg PO daily. Continue digoxin 0.125 mg PO daily. DC lisinopril. - BNP 2273. - Obtain echo. Follow. - Continue Lasix. Monitor intake and output. - INR on presentation 1.3. Lovenox 60 mg sq q12hr bridge until therapeutic INR. Continue Coumadin. Recheck in a.m. Acute kidney injury: suspect secondary to CHF exacerbation - Creatinine on admission 1.78. - Lasix 40 mg twice a day by mouth. Monitor hypokalemia, start KCl 10 meq PO daily. Hold if low BP. Consult nephrology - Repeat BMP in am. Follow. - Avoid nephrotoxins. Type 2 diabetes mellitus, chronic - Obtain hemoglobin A1c. Follow. - Continue glimepiride 4 mg PO daily. - Accu-Cheks ACHS. Sliding scale insulin, cover as needed. - Levemir 5 units sq before meals. - Heart healthy/diabetic diet. Dyslipidemia: Continue home medications including Zetia and pravastatin. Hypothyroidism: Resume Synthroid 75 mcg PO daily. DVT prophylaxis: SCDs/TEDs. Lovenox 60 mg sq q12hr. Continue Coumadin. Physician Certification 2 Midnight Certification Type: Admission for Inpatient Services Order for Inpatient Services The services are ordered in accordance with Medicare regulations or non- Medicare payer requirements, as applicable. In the case of services not specified as inpatient-only, they are appropriately provided as inpatient services in accordance with the 2-midnight benchmark. Estimated LOS (days): 2 days is the estimated time the patient will need to remain in the hospital, assuming treatment plan goals are met and no additional complications. Post-Hospital Plan: Not yet determined Mary Kang Mar 04, 2017 15:24 Patti Jacome MD Mar 04, 2017 17:54
[2017-03-04] MEDS ORDERED: PILL SPLITTER OTHER PRN (16:00)
--- NOTE | 2017-03-04 17:00 | ECHRPT ---
Indication: ATRIAL FIBRILLATION AND FLUTTER CONCLUSIONS Wall thickness is normal. Normal left ventricular size. The left ventricular systolic function is se verely reduced with an estimated ejection fraction less than 20%. Mildly dilated left ventricle. Wall thickness is measured at the upper limits of normal. The left ve ntricular systolic function is severely reduced with an estimated ejection fraction less than 20%. A pacemaker wire is noted. The left atrial size is moderately dilated. No mitral valve regurgitation. Normally functioning mechanical mitral valve prosthesis. Structurally normal tricuspid valve. There is moderate to severe tricuspid valve regurgitation. The re is estimated mild pulmonary hypertension present (range 40-50 mmHg). BP: 124 / 72 HR: 107 Rhythm: atrial fibrillation MEASUREMENTS (Male / Female) Normal Values Technical Quality: 2D ECHO LV Diastolic Diameter PLAX 4.5 cm 4.2 - 5.9 / 3.9 - 5.3 cm LV Systolic Diameter PLAX 4.1 cm IVS Diastolic Thickness 1.3 cm 0.6 - 1.0 / 0.6 - 0.9 cm LVPW Diastolic Thickness 1.2 cm 0.6 - 1.0 / 0.6 - 0.9 cm LV Relative Wall Thickness 0.6 RV Internal Dim ED PLAX 3.0 cm M-MODE Aortic Root Diameter MM 3.1 cm LA Systolic Diameter MM 4.9 cm LA Ao Ratio MM 1.6 AV Cusp Separation MM 1.1 cm DOPPLER MV Peak Velocity 225.0 cm/s MV Peak Gradient 20.3 mmHg MV Mean Velocity 120.0 cm/s MV Mean Gradient 7.0 mmHg MV Area PHT 2.0 cm TR Peak Velocity 299.0 cm/s TR Peak Gradient 35.8 mmHg FINDINGS Left Ventricle Mildly dilated left ventricle. Wall thickness is measured at the upper limits of normal. The left ve ntricular systolic function is severely reduced with an estimated ejection fraction less than 20%. Right Ventricle The right ventriclar size is upper limits of normal. A pacemaker wire is noted. Left Atrium The left atrial size is moderately dilated. Right Atrium The right atrial size is normal. Atrial Septum Normal atrial septal thickness without atrial level shunting by limited color doppler interrogation. Aorta The aortic root and proximal ascending aorta are normal in size on limited imaging. Mitral Valve No mitral valve regurgitation. Normally functioning mechanical mitral valve prosthesis. Aortic Valve Trileaflet aortic valve. No aortic valve stenosis or regurgitation. Tricuspid Valve Structurally normal tricuspid valve. There is moderate to severe tricuspid valve regurgitation. The re is estimated mild pulmonary hypertension present (range 40-50 mmHg). Pulmonary Valve No pulmonary valve regurgitation or stenosis. Vessels The inferior vena cava is normal in size. Pericardium No pericardial effusion. Skyler Toro MD, FACC (Electronically Signed) Final Date:04 March 2017 16:59
[2017-03-04] MEDS: INSULIN ASPART SUPPLEMENTAL SCALE SQ SCH ×2 (17:29→21:00)
[2017-03-04] MEDS: WARFARIN SOD 2 MG TAB PO SCH (17:29)
[2017-03-04] MEDS ORDERED: HEPARIN SODIUM - IV 10,000 UNITS/10 ML VIAL IV ONE (18:15)
--- NOTE | 2017-03-04 19:38 | MB ---
cc: OH BONE MD DATE OF CONSULTATION: 03/04/2017 REASON FOR CONSULTATION New-onset atrial fibrillation. HISTORY OF PRESENT ILLNESS Ms. Huerta is a 76-year-old female who is a patient of my partner Dr. Stubbs. She is status post mitral valve replacement as well as ICD placement for cardiomyopathy earlier this year. She was seen in the office today and found to be in a-fib with RVR. The patient indicated to me that apparently her Coreg was recently discontinued. PAST MEDICAL HISTORY Significant for - 1. Hyperlipidemia. 2. Diabetes. 3. Mitral valve replacement. 4. Systolic and diastolic heart failure. 5. BiV ICD placement. OUTPATIENT MEDICATIONS 1. Insulin. 2. Lisinopril. 3. Coreg, this was reportedly stopped. 4. Coumadin. 5. Losartan. 6. Levoxyl. 7. Prednisone. 8. Glyburide. 9. Digoxin. 10. Vytorin. 11. Lasix. 12. Aspirin. REVIEW OF SYSTEMS The patient does have some shortness of breath and lower extremity edema, other than this all 12 systems are negative. FAMILY HISTORY Noncontributory. ALLERGIES NO KNOWN DRUG ALLERGIES. SOCIAL HISTORY The patient is and does not smoke. PHYSICAL EXAMINATION VITAL SIGNS: 108, 20, 103/58. GENERAL: She is a morbidly obese female who is in no apparent distress. NECK: Her neck is free from JVD. LUNGS: The lungs are decreased but clear to auscultation. CARDIOVASCULAR: On cardiovascular examination, she has an irregularly irregular rhythm. No murmurs, rubs or gallops were appreciated. ABDOMEN: The abdomen is soft. EXTREMITIES: The lower extremities have 2+ edema. Defibrillator interrogation does show atrial fibrillation with rapid ventricular rate. Telemetry shows atrial fibrillation at 110 beats a minute. IMPRESSIONS Atrial fibrillation with rapid ventricular rate - The patient's beta-blockade has apparently been held. We will restart this. I would continue the amiodarone. Status post MVR - The patient would benefit from further anticoagulation as her INR is subtherapeutic, and given her renal insufficiency this would be best done with heparin. Cardiomyopathy - The patient should be on beta-blockade and MARIE inhibitor. I would hold off on any MARIE or ARB at this point secondary to her low blood pressure. Status post tissue MVR. Raúl Issa/BJF /6:10 PM /7:14 PM
[2017-03-04 19:46] LABS: HEMOGLOBIN A1a 1.8 %; HEMOGLOBIN A1b 2.7 %; HEMOGLOBIN Ao 78.5 %; HEMOGLOBIN P3 7.3 %
[2017-03-04 20:53] LABS: HEMATOCRIT 36.2 % (35.0-46.0); MEAN CORPUSCULAR HEMOGLOBIN 32.1 PG (27.0-34.0); MEAN CORPUSCULAR HGB CONC 33.1 % (32.0-36.0); PLATELET COUNT 195 TH/MM3 (150-450); RED BLOOD COUNT 3.73 MIL/MM3 (4.00-5.30); RED CELL DISTRIBUTION WIDTH 15.4 % (11.6-17.2); REVIEW FLAG FINAL; WHITE BLOOD COUNT 8.2 TH/MM3 (4.0-11.0)
[2017-03-04] MEDS ORDERED: NON-FORMULARY DRUG (Ezetimibe-Simvastatin (Vytorin) 1 TAB) PO SCH (21:00)
[2017-03-04] MEDS: EZETIMIBE 10 MG TAB PO SCH (21:00)
[2017-03-04 21:03] LABS: APTT (PATIENT) 34.7 SEC (24.3-30.1); INTERNATIONAL NORMALIZED RATIO 1.3 RATIO; PROTHROMBIN TIME - PATIENT 14.3 SEC (9.8-11.6)
[2017-03-04] MEDS: PRAVASTATIN SOD 40 MG TAB PO SCH (21:59)
[2017-03-04] MEDS: CARVEDILOL 3.125 MG TAB PO SCH (21:59)
[2017-03-04] MEDS: SODIUM CHLORIDE 0.9% FLUSH 10 ML FLUSH IV FLUSH SCH (21:59)
[2017-03-04] MEDS: AMIODARONE 200 MG TAB PO SCH (21:59)
[2017-03-04] MEDS: DOCUSATE SODIUM 50 MG/SENNA 8.6 MG TAB PO SCH (21:59)
[2017-03-04] MEDS: FUROSEMIDE 40 MG TAB PO SCH (21:59)
[2017-03-04] MEDS: METOPROLOL TARTRATE 25 MG TAB PO SCH (21:59)
[2017-03-05] VITALS (26 sets, daily range): BP systolic 86–120; BP diastolic 46–72; PULSE 72–102; RESP 28; TEMP 97.3–97.8; O2SAT 91–98
[2017-03-05] MEDS ORDERED: ENOXAPARIN SODIUM 60 MG/0.6 ML SYRINGE SQ SCH
[2017-03-05] MEDS ORDERED: HEPARIN SODIUM - IV 10,000 UNITS/10 ML VIAL IV PRN ×2 (00:15)
[2017-03-05] MEDS: HEPARIN-D5W INJ 250 ML IV SCH (00:38)
[2017-03-05 05:32] LABS: AUTOMATED NEUTROPHIL # 6.6 TH/MM3 (1.8-7.7); BASOPHIL # 0.1 TH/MM3 (0-0.2); BASOPHIL % 0.9 % (0.0-2.0); EOSINOPHIL # 0.2 TH/MM3 (0-0.4); EOSINOPHIL % 2.2 % (0.0-4.0); HEMATOCRIT 36.3 % (35.0-46.0); HEMO FLAGS DIFF FINAL; LYMPH % 9.7 % (9.0-44.0); LYMPHOCYTE # 0.8 TH/MM3 (1.0-4.8); MEAN CELL VOLUME 97.3 FL (80.0-100.0); MEAN CORPUSCULAR HEMOGLOBIN 31.6 PG (27.0-34.0); MEAN CORPUSCULAR HGB CONC 32.5 % (32.0-36.0); MONO % 9.3 % (0.0-8.0); NEUT % 77.9 % (16.0-70.0); PLATELET COUNT 183 TH/MM3 (150-450); RED BLOOD COUNT 3.73 MIL/MM3 (4.00-5.30); RED CELL DISTRIBUTION WIDTH 15.2 % (11.6-17.2); WHITE BLOOD COUNT 8.5 TH/MM3 (4.0-11.0)
[2017-03-05 05:52] LABS: BICARBONATE 26.4 MEQ/L (21.0-32.0); POTASSIUM 4.7 MEQ/L (3.5-5.1)
[2017-03-05 06:10] LABS: APTT (PATIENT) 138.9 SEC (24.3-30.1)
[2017-03-05] MEDS: INSULIN DETEMIR 100 UNITS/ML VIAL SQ SCH (07:00)
[2017-03-05] MEDS: LEVOTHYROXINE SODIUM 75 MCG TAB PO SCH (07:05)
[2017-03-05] MEDS: INSULIN ASPART SUPPLEMENTAL SCALE SQ SCH ×3 (07:06→16:39)
[2017-03-05] MEDS: CARVEDILOL 3.125 MG TAB PO SCH ×2 (08:46→22:06)
[2017-03-05] MEDS: SODIUM CHLORIDE 0.9% FLUSH 10 ML FLUSH IV FLUSH SCH ×2 (08:46→22:08)
[2017-03-05] MEDS: predniSONE 10 MG TAB PO SCH (08:46)
[2017-03-05] MEDS: POTASSIUM CHLORIDE 10 MEQ CONTROLLED RELEASE TAB PO SCH (08:47)
[2017-03-05] MEDS: DOCUSATE SODIUM 50 MG/SENNA 8.6 MG TAB PO SCH ×2 (08:47→22:09)
[2017-03-05] MEDS: ASPIRIN EC 81 MG TABEC PO SCH (08:47)
[2017-03-05] MEDS: DIGOXIN 0.125 MG TAB PO SCH (08:47)
[2017-03-05] MEDS: FUROSEMIDE 40 MG TAB PO SCH ×2 (08:49→22:08)
[2017-03-05] MEDS: GLIMEPIRIDE 4 MG TAB PO SCH (08:49)
[2017-03-05] MEDS: AMIODARONE 200 MG TAB PO SCH ×2 (08:49→22:05)
[2017-03-05] MEDS: METOPROLOL TARTRATE 25 MG TAB PO SCH ×2 (08:50→22:06)
[2017-03-05] MEDS ORDERED: LOSARTAN 50 MG TAB PO SCH (09:00)
[2017-03-05] MEDS ORDERED: LISINOPRIL 5 MG TAB PO SCH (09:00)
--- NOTE | 2017-03-05 09:05 | HHI.PR ---
Subjective Remarks In the bed eating breakfast . Says she is less sob and thinks is improving. No palpitations. BP was noted into a lower side , off cardizem drip. No chest pain or sob. No n/v/d/c. Objective Vitals Vital Signs Date Time Temp Pulse Resp B/P Pulse Ox O2 Delivery O2 Flow Rate FiO2 03/05/17 08:36 84 03/05/17 07:45 97.8 87 28 106/71 98 03/05/17 07:45 87 03/05/17 06:00 86 03/05/17 05:00 88 03/05/17 04:43 96 Nasal Cannula 2.00 03/05/17 04:00 75 03/05/17 03:00 78 03/05/17 03:00 97.4 85 28 86/58 95 03/05/17 02:00 80 03/05/17 01:00 72 03/05/17 00:00 84 03/04/17 23:30 97.3 72 26 81/63 96 03/04/17 23:00 115 03/04/17 22:00 100 03/04/17 21:00 110 03/04/17 20:00 115 03/04/17 19:00 108 03/04/17 19:00 97.3 106 22 108/56 90 03/04/17 18:39 116 20 115/58 94 03/04/17 16:30 108 20 103/58 93 Room Air 03/04/17 15:45 114 18 97/61 94 Room Air 03/04/17 14:37 114 18 117/68 94 Room Air 03/04/17 12:50 107 18 124/72 93 Room Air 03/04/17 12:00 109 03/04/17 11:58 110 112/64 98 03/04/17 11:55 133 03/04/17 11:39 134 18 132/77 97 Room Air 03/04/17 11:38 97 Room Air 03/04/17 11:38 97 Room Air 03/04/17 11:30 134 20 96 Room Air 03/04/17 11:17 97.7 128 20 97 Room Air I/O 03/04/17 03/04/17 03/04/17 03/05/17 03/05/17 03/05/17 07:00 15:00 23:00 07:00 15:00 23:00 Intake Total 560 ml Output Total 50 ml Balance 510 ml Intake Oral 480 ml IV Total 80 ml Output Urine Total 50 ml # Bowel Movements 1 Result Diagram: 03/05/17 0520 03/05/17 0520 Imaging Last Impressions Chest X-Ray 03/04/17 1134 Signed Impressions: Service Date/Time: February 11:44 - CONCLUSION: Linear non-consolidative infiltrates or scarring in the lateral right mid and lower lung. Roshan Ward MD Objective Remarks GENERAL: Well-nourished, well-developed patient, in no apparent distress lying in bed comfortably. SKIN: No rashes, ecchymoses or lesions. Warm and dry. HEENT: Atraumatic. Normocephalic. Pupils equal round and reactive. Extraocular motions intact. No scleral icterus. No injection or drainage. Nose without bleeding. Airway patent. NECK: Trachea midline. No JVD or lymphadenopathy. Supple. CARDIOVASCULAR: Irregularly irregular rhythm. No murmur appreciated. RESPIRATORY: Clear to auscultation. Breath sounds equal bilaterally. No wheezes , rales, or rhonchi. GASTROINTESTINAL: Abdomen soft, non-tender, nondistended. No guarding. MUSCULOSKELETAL: Extremities without clubbing, cyanosis, or edema. No joint tenderness, effusion. Bilateral lower leg extremity edema, left great than right , 2+ pitting. NEUROLOGICAL: Awake and alert. Cranial nerves II through XII intact. Motor and sensory grossly within normal limits. Five out of 5 muscle strength in all muscle groups. Normal speech. A/P Assessment and Plan Mrs. Huerta is a 76-year-old female patient with a known history of atrial fibrillation, diabetes mellitus, congestive heart failure, hyperlipidemia, and mitral valve replacement in Oct 2016 who presented to the ED from Dr. Stubbs's office with complaints of shortness of breath and hypotension. Per patient, an EKG was performed and she was sent here. Atrial fibrillation with RVR, acute on chronic - Given Cardizem 17 mg IV bolus in ED. Given another Cardizem IV 10 mg IV in ED. - Start Cardizem drip to keep HR < 90. Monitor BP closely. Currently off cardizem drip. - Consult cardiology, patient known to Dr. Stubbs, appreciate recommendations. Seen by Dr Jimenez appreciate recommendations. - Continue amiodarone 200 mg by mouth twice a day. Hold if low BP Continue digoxin - Continuous cardiac telemetry. - EKG reviewed, irregular and paced rhythm, with left bundle branch block noted. Combined systolic and diastolic congestive heart failure, exacerbation History of mitral valve replacement Oct 2016 on Coumadin Subtherapeutic INR - Per records, patient underwent bi IVICD in 2010 with an EF of 20-20% at that time. Last ECHO showing improvement EF of 50% in Sep 2016. - Continue home Coreg 3.125 mg PO q12hr. Continue aspirin 81 mg PO daily. Continue digoxin 0.125 mg PO daily. DC lisinopril. - BNP 2273 on admission. - Obtain echo. Follow. - Continue Lasix, hold if low BP . Monitor intake and output.. - INR on presentation 1.3. On heparin drip bridge until therapeutic INR. Continue Coumadin. Recheck in a.m. Pharmacy to check Acute kidney injury: suspect secondary to CHF exacerbation - Creatinine on admission 1.78. - Lasix 40 mg twice a day by mouth. Monitor hypokalemia, start KCl 10 meq PO daily. Hold if low BP. Consult nephrology - Repeat BMP in am. Follow. - Avoid nephrotoxins. Type 2 diabetes mellitus, chronic - Obtain hemoglobin A1c. Follow. - Accu-Cheks ACHS. Sliding scale insulin, cover as needed. hold home meds, can continue at DC - Levemir 5 units sq before meals. - Heart healthy/diabetic diet. Dyslipidemia: Continue home medications including Zetia and pravastatin. Hypothyroidism: Resume Synthroid 75 mcg PO daily. DVT prophylaxis: SCDs/TEDs. Heparin, bridge Coumadin. Discussed with the patient. nurse Patti Jacome MD Mar 05, 2017 09:05
[2017-03-05 11:25] LABS: APTT (PATIENT) 61.8 SEC (24.3-30.1)
--- NOTE | 2017-03-05 11:34 | PD.CARD.PN ---
Subjective Subjective Remarks Pt without complaints, feeling better Objective Medications Current Medications Medications (Trade) Dose Ordered Sig/Amaris Route Start Time Stop Time Status Last Admin (Cordarone) 200 mg BID PO 03/04/17 21:00 03/04/17 21:59 (Ecotrin Ec) 81 mg DAILY PO 03/05/17 09:00 03/05/17 08:47 (Coreg) 3.125 mg Q12HR PO 03/04/17 21:00 03/05/17 08:46 (Lanoxin) 0.125 mg DAILY PO 03/05/17 09:00 03/05/17 08:47 (Lasix) 40 mg BID PO 03/04/17 21:00 03/04/17 21:59 (Amaryl) 4 mg DAILY PO 03/05/17 09:00 (Synthroid) 75 mcg DAILY@0600 PO 03/05/17 06:00 03/05/17 07:05 (KCl) 10 meq DAILY PO 03/05/17 09:00 03/05/17 08:47 (Deltasone) 10 mg DAILY PO 03/05/17 09:00 03/05/17 08:46 Warfarin Sodium 2 mg 2 mg DAILY@1600 PO 03/04/17 16:00 03/04/17 17:29 (Cardizem Inj/NS Inj) 125 ml @ 0 mls/hr TITRATE IV 03/04/17 13:45 03/04/17 15:49 (NS Flush) 2 ml UNSCH PRN IV FLUSH 03/04/17 14:30 (NS Flush) 2 ml BID IV FLUSH 03/04/17 21:00 03/05/17 08:46 (Tylenol) 650 mg Q4H PRN PO 03/04/17 14:30 (Zofran Inj) 4 mg Q6H PRN IVP 03/04/17 14:30 (Restoril) 15 mg HS PRN PO 03/04/17 14:30 (Nusrat-Colace) 1 tab BID PO 03/04/17 21:00 03/05/17 08:47 (Milk Of Magnesia Liq) 30 ml Q12H PRN PO 03/04/17 14:30 (Senokot) 17.2 mg Q12H PRN PO 03/04/17 14:30 (Dulcolax Supp) 10 mg DAILY PRN RECTAL 03/04/17 14:30 (Lactulose Liq) 30 ml DAILY PRN PO 03/04/17 14:30 (D50w (Vial) Inj) 50 ml UNSCH PRN IV 03/04/17 14:45 (Glucagon Inj) 1 mg UNSCH PRN OTHER 03/04/17 14:45 (Zetia) 10 mg HS PO 03/04/17 21:00 03/04/17 21:00 (Pravachol) 40 mg HS PO 03/04/17 21:00 03/04/17 21:59 (Pill Splitter) 1 ea UNSCH PRN OTHER 03/04/17 16:00 (Heparin Inj) 5,000 units UNSCH PRN IV 03/05/17 00:15 Heparin Sodium (Porcine) 2500 units 2,500 units UNSCH PRN IV 03/05/17 00:15 (Heparin-D5W Inj) 250 ml @ 0 mls/hr TITRATE IV 03/04/17 18:15 03/05/17 00:38 Metoprolol Tartrate 25 mg 25 mg Q12HR PO 03/04/17 21:00 03/04/17 21:59 (Coumadin Consult Pharmacy) 0 ml @ 0 mls/hr UNSCH OTHER 03/05/17 07:45 Vital Signs / I&O Vital Signs Date Time Temp Pulse Resp B/P Pulse Ox O2 Delivery O2 Flow Rate FiO2 03/05/17 10:24 90 03/05/17 10:14 98 Nasal Cannula 2.00 03/05/17 09:57 80 03/05/17 08:36 84 03/05/17 07:45 97.8 87 28 106/71 98 03/05/17 07:45 87 03/05/17 06:00 86 03/05/17 05:00 88 03/05/17 04:43 96 Nasal Cannula 2.00 03/05/17 04:00 75 03/05/17 03:00 78 03/05/17 03:00 97.4 85 28 86/58 95 03/05/17 02:00 80 03/05/17 01:00 72 03/05/17 00:00 84 03/04/17 23:30 97.3 72 26 81/63 96 03/04/17 23:00 115 03/04/17 22:00 100 03/04/17 21:00 110 03/04/17 20:00 115 03/04/17 19:00 108 03/04/17 19:00 97.3 106 22 108/56 90 03/04/17 18:39 116 20 115/58 94 03/04/17 16:30 108 20 103/58 93 Room Air 03/04/17 15:45 114 18 97/61 94 Room Air 03/04/17 14:37 114 18 117/68 94 Room Air 03/04/17 12:50 107 18 124/72 93 Room Air 03/04/17 12:00 109 03/04/17 11:58 110 112/64 98 03/04/17 11:55 133 03/04/17 11:39 134 18 132/77 97 Room Air 03/04/17 11:38 97 Room Air 03/04/17 11:38 97 Room Air I/O 03/04/17 03/04/17 03/04/17 03/05/17 03/05/17 03/05/17 07:00 15:00 23:00 07:00 15:00 23:00 Intake Total 560 ml Output Total 50 ml Balance 510 ml Intake Oral 480 ml IV Total 80 ml Output Urine Total 50 ml # Bowel Movements 1 Physical Exam GENERAL: Well developed, well nourished. No acute distress. HEENT: Jugular venous pressure is normal. CHEST: Lungs rales to auscultation bilaterally. Unlabored respiratory effort. CARDIAC: Regular tachycardia and rhythm without S3, S4, or murmur. ABDOMEN: Soft, nontender, no hepatosplenomegaly. Bowel sounds present. EXTREMITIES: No clubbing, cyanosis, 1+ edema. Laboratory Laboratory Tests Test 03/04/17 03/04/17 03/04/17 03/05/17 11:40 20:35 20:38 05:20 White Blood Count 8.5 TH/MM3 8.2 TH/MM3 8.5 TH/MM3 Red Blood Count 4.04 MIL/MM3 3.73 MIL/MM3 3.73 MIL/MM3 Hemoglobin 12.9 GM/DL 12.0 GM/DL 11.8 GM/DL Hematocrit 39.4 % 36.2 % 36.3 % Mean Corpuscular Volume 97.4 FL 97.0 FL 97.3 FL Mean Corpuscular Hemoglobin 32.0 PG 32.1 PG 31.6 PG Mean Corpuscular Hemoglobin 32.9 % 33.1 % 32.5 % Concent Red Cell Distribution Width 15.4 % 15.4 % 15.2 % Platelet Count 220 TH/MM3 195 TH/MM3 183 TH/MM3 Mean Platelet Volume 8.9 FL 8.8 FL 8.7 FL Neutrophils (%) (Auto) 77.3 % 77.9 % Lymphocytes (%) (Auto) 10.9 % 9.7 % Monocytes (%) (Auto) 9.3 % 9.3 % Eosinophils (%) (Auto) 1.6 % 2.2 % Basophils (%) (Auto) 0.9 % 0.9 % Neutrophils # (Auto) 6.6 TH/MM3 6.6 TH/MM3 Lymphocytes # (Auto) 0.9 TH/MM3 0.8 TH/MM3 Monocytes # (Auto) 0.8 TH/MM3 0.8 TH/MM3 Eosinophils # (Auto) 0.1 TH/MM3 0.2 TH/MM3 Basophils # (Auto) 0.1 TH/MM3 0.1 TH/MM3 CBC Comment DIFF FINAL DIFF FINAL Differential Comment Prothrombin Time 14.2 SEC 14.3 SEC Prothromb Time International 1.3 RATIO 1.3 RATIO Ratio Activated Partial 27.6 SEC 34.7 SEC 138.9 SEC Thromboplast Time Sodium Level 134 MEQ/L 137 MEQ/L Potassium Level 4.9 MEQ/L 4.7 MEQ/L Chloride Level 100 MEQ/L 102 MEQ/L Carbon Dioxide Level 21.6 MEQ/L 26.4 MEQ/L Anion Gap 12 MEQ/L 9 MEQ/L Blood Urea Nitrogen 42 MG/DL 45 MG/DL Creatinine 1.78 MG/DL 1.72 MG/DL Estimat Glomerular Filtration 28 ML/MIN 29 ML/MIN Rate Random Glucose 232 MG/DL 152 MG/DL Hemoglobin A1c 8.2 % Calcium Level 9.7 MG/DL 9.0 MG/DL Magnesium Level 2.0 MG/DL Total Creatine Kinase 41 U/L Troponin I LESS THAN 0.02 NG/ML B-Type Natriuretic Peptide 2273 PG/ML Test 03/05/17 03/05/17 07:36 10:46 Activated Partial 101.0 SEC 61.8 SEC Thromboplast Time B-Type Natriuretic Peptide 2532 PG/ML Assessment and Plan Assessment and Plan AF- fair control on present meds, appears to be sinus tach 115 after PT -continue present meds for now, metoprolol and amio, digoxin acute on chronic systolic failure- edema better, but rales today - agree renal consult would be great Cardiomyopathy EF 20%- on BB, BP too low for olivia s/p MVR- on heparin and coumadin for target INR 2-3.0, management per primary Lois Jimenez MD Mar 05, 2017 11:34
[2017-03-05] MEDS: WARFARIN SOD 2 MG TAB PO SCH (16:36)
--- NOTE | 2017-03-05 18:00 | EKG ---
Date Performed: 03/04/2017 Time Performed: 11:32:02 PTAGE: 76 years EKG: WIDE COMPLEX TACHYCARDIA ELECTRONIC VENTRICULAR PACEMAKER LEFT BUNDLE BRANCH BLOCK ABNORMAL ECG PREVIOUS TRACING : 10/30/2016 05.59 Compared to the previous tracing SR no longer present DOCTOR: Cassidy Weir Interpretating Date/Time 03/05/2017 17:58:48
[2017-03-05 20:12] LABS: APTT (PATIENT) 65.5 SEC (24.3-30.1)
[2017-03-05] MEDS: EZETIMIBE 10 MG TAB PO SCH (21:00)
[2017-03-05] MEDS: PRAVASTATIN SOD 40 MG TAB PO SCH (22:07)
[2017-03-06] VITALS (28 sets, daily range): BP systolic 90–103; BP diastolic 47–62; PULSE 70–97; RESP 18–28; TEMP 96.6–97.9; O2SAT 91–98
[2017-03-06] MEDS: INSULIN ASPART SUPPLEMENTAL SCALE SQ SCH ×5 (00:44→20:42)
[2017-03-06 06:03] LABS: APTT (PATIENT) 58.2 SEC (24.3-30.1); INTERNATIONAL NORMALIZED RATIO 1.4 RATIO; PROTHROMBIN TIME - PATIENT 15.4 SEC (9.8-11.6)
[2017-03-06] MEDS: LEVOTHYROXINE SODIUM 75 MCG TAB PO SCH (06:05)
[2017-03-06] MEDS: INSULIN DETEMIR 100 UNITS/ML VIAL SQ SCH (06:18)
--- NOTE | 2017-03-06 08:52 | PD.CARD.PN ---
Subjective Subjective Remarks Chart was reviewed. Telemetry reveals probable controlled atrial fibrillation with ventricular demand pacemaker. The patient notes minimal shortness of breath which is baseline and no other cardiac symptoms, bleeding or GI symptoms. Objective Medications Reviewed Vital Signs / I&O Vital Signs Date Time Temp Pulse Resp B/P Pulse Ox O2 Delivery O2 Flow Rate FiO2 03/06/17 07:01 87 03/06/17 06:00 84 03/06/17 05:00 86 03/06/17 04:00 84 03/06/17 03:00 70 03/06/17 03:00 97.4 88 28 90/57 92 03/06/17 02:00 82 03/06/17 01:00 78 03/06/17 00:00 82 03/05/17 23:00 97.4 85 28 91/62 91 03/05/17 23:00 93 03/05/17 22:00 102 03/05/17 21:00 92 03/05/17 20:31 93 21 03/05/17 20:00 90 03/05/17 19:00 97.3 91 28 120/72 94 03/05/17 19:00 95 03/05/17 18:11 86 03/05/17 17:04 89 03/05/17 16:02 84 03/05/17 15:03 97.5 84 28 97/46 97 03/05/17 15:03 84 03/05/17 14:42 79 03/05/17 13:13 89 03/05/17 11:20 97.4 87 28 102/68 96 03/05/17 11:20 88 03/05/17 10:24 90 03/05/17 10:14 98 Nasal Cannula 2.00 03/05/17 09:57 80 I/O 03/05/17 03/05/17 03/05/17 03/06/17 03/06/17 03/06/17 07:00 15:00 23:00 07:00 15:00 23:00 Intake Total 560 ml 720 ml 510 ml Output Total 50 ml 550 ml 300 ml Balance 510 ml 170 ml 210 ml Intake Oral 480 ml 720 ml 480 ml IV Total 80 ml 30 ml Output Urine Total 50 ml 550 ml 300 ml # Voids 1 # Bowel Movements 1 1 2 Physical Exam GENERAL: Well-nourished, well-developed patient in no apparent distress. SKIN: Warm and dry. NECK: JVD normal - less than or equal to 5 cm H20. CARDIOVASCULAR: Irregular rate and rhythm without rubs. 1/6 early peaking systolic ejection murmur at the base and a possible S3. RESPIRATORY: Normal breath sounds - equal bilaterally. No accessory muscle use. No wheezes, rales or rubs. PERIPHERY: No cyanosis, or edema. Laboratory Laboratory Tests Test 03/05/17 03/05/17 03/06/17 10:46 19:50 04:45 Activated Partial 61.8 SEC 65.5 SEC 58.2 SEC Thromboplast Time Prothrombin Time 15.4 SEC Prothromb Time International 1.4 RATIO Ratio Imaging Last 48 hours Impressions Chest X-Ray 03/04/17 1134 Signed Impressions: Service Date/Time: February 11:44 - CONCLUSION: Linear non-consolidative infiltrates or scarring in the lateral right mid and lower lung. Roshan Ward MD Assessment and Plan Assessment and Plan Problems: Atrial fibrillation Cardiomyopathy Hyperlipidemia Diabetes Biventricular pacemaker/defibrillator Recommendations: Continue present medical regimen. I will decrease the amiodarone and switch the intravenous to oral diltiazem. Endocarditis prophylaxis The patient will need to be on Coumadin to an INR of 2-3. We would want her therapeutic before heparin is discontinued. Low-cholesterol/salt/diabetic diet Next number we will sign off and be available if needed. She will need to follow-up shortly with . All questions answered. Valeriy Kent MD Mar 06, 2017 08:52
[2017-03-06] MEDS: METOPROLOL TARTRATE 25 MG TAB PO SCH ×2 (09:00→20:51)
[2017-03-06] MEDS: GLIMEPIRIDE 4 MG TAB PO SCH (09:02)
[2017-03-06] MEDS: FUROSEMIDE 40 MG TAB PO SCH ×2 (09:02→20:48)
[2017-03-06] MEDS: DILTIAZEM-CD 120 MG CAP ER PO SCH (09:02)
[2017-03-06] MEDS: CARVEDILOL 3.125 MG TAB PO SCH ×2 (09:03→20:48)
[2017-03-06] MEDS: predniSONE 10 MG TAB PO SCH (09:03)
[2017-03-06] MEDS: POTASSIUM CHLORIDE 10 MEQ CONTROLLED RELEASE TAB PO SCH (09:03)
[2017-03-06] MEDS: DIGOXIN 0.125 MG TAB PO SCH (09:03)
[2017-03-06] MEDS: ASPIRIN EC 81 MG TABEC PO SCH (09:03)
[2017-03-06] MEDS: AMIODARONE 200 MG TAB PO SCH (09:03)
[2017-03-06] MEDS: DOCUSATE SODIUM 50 MG/SENNA 8.6 MG TAB PO SCH ×2 (09:03→20:47)
[2017-03-06] MEDS: SODIUM CHLORIDE 0.9% FLUSH 10 ML FLUSH IV FLUSH SCH ×2 (09:04→20:48)
--- NOTE | 2017-03-06 09:20 | HHI.PR ---
Subjective Remarks Patient appears in nad. Feels tired. Less sob. No chest pain. Has lower extremity edema Objective Vitals Vital Signs Date Time Temp Pulse Resp B/P Pulse Ox O2 Delivery O2 Flow Rate FiO2 03/06/17 09:09 93 21 03/06/17 07:01 87 03/06/17 06:00 84 03/06/17 05:00 86 03/06/17 04:00 84 03/06/17 03:00 70 03/06/17 03:00 97.4 88 28 90/57 92 03/06/17 02:00 82 03/06/17 01:00 78 03/06/17 00:00 82 03/05/17 23:00 97.4 85 28 91/62 91 03/05/17 23:00 93 03/05/17 22:00 102 03/05/17 21:00 92 03/05/17 20:31 93 21 03/05/17 20:00 90 03/05/17 19:00 97.3 91 28 120/72 94 03/05/17 19:00 95 03/05/17 18:11 86 03/05/17 17:04 89 03/05/17 16:02 84 03/05/17 15:03 97.5 84 28 97/46 97 03/05/17 15:03 84 03/05/17 14:42 79 03/05/17 13:13 89 03/05/17 11:20 97.4 87 28 102/68 96 03/05/17 11:20 88 03/05/17 10:24 90 03/05/17 10:14 98 Nasal Cannula 2.00 03/05/17 09:57 80 I/O 03/05/17 03/05/17 03/05/17 03/06/17 03/06/17 03/06/17 07:00 15:00 23:00 07:00 15:00 23:00 Intake Total 560 ml 720 ml 510 ml Output Total 50 ml 550 ml 300 ml Balance 510 ml 170 ml 210 ml Intake Oral 480 ml 720 ml 480 ml IV Total 80 ml 30 ml Output Urine Total 50 ml 550 ml 300 ml # Voids 1 # Bowel Movements 1 1 2 Result Diagram: 03/05/17 0520 03/05/17 0520 Imaging Last Impressions Chest X-Ray 03/04/17 1134 Signed Impressions: Service Date/Time: February 11:44 - CONCLUSION: Linear non-consolidative infiltrates or scarring in the lateral right mid and lower lung. Roshan Ward MD Objective Remarks GENERAL: Well-nourished, well-developed patient, in no apparent distress lying in bed comfortably. SKIN: No rashes, ecchymoses or lesions. Warm and dry. HEENT: Atraumatic. Normocephalic. Pupils equal round and reactive. Extraocular motions intact. No scleral icterus. No injection or drainage. Nose without bleeding. Airway patent. NECK: Trachea midline. No JVD or lymphadenopathy. Supple. CARDIOVASCULAR: Irregularly irregular rhythm. No murmur appreciated. RESPIRATORY: Clear to auscultation. Breath sounds equal bilaterally. No wheezes , rales, or rhonchi. GASTROINTESTINAL: Abdomen soft, non-tender, nondistended. No guarding. MUSCULOSKELETAL: Extremities without clubbing, cyanosis. 1+ bilateral lower extremity edema. No joint tenderness, effusion. Bilateral lower leg extremity edema, left great than right, 2+ pitting. NEUROLOGICAL: Awake and alert. Cranial nerves II through XII intact. Motor and sensory grossly within normal limits. Five out of 5 muscle strength in all muscle groups. Normal speech. A/P Assessment and Plan Mrs. Huerta is a 76-year-old female patient with a known history of atrial fibrillation, diabetes mellitus, congestive heart failure, hyperlipidemia, and mitral valve replacement in Oct 2016 who presented to the ED from Dr. Stubbs's office with complaints of shortness of breath and hypotension. Per patient, an EKG was performed and she was sent here. Atrial fibrillation with RVR, acute on chronic - Given Cardizem 17 mg IV bolus in ED. Given another Cardizem IV 10 mg IV in ED. - Cardizem drip to keep HR < 90. Monitor BP closely. Currently off cardizem drip. - Consult cardiology, patient known to Dr. Stubbs, appreciate recommendations. Seen by Dr Jimenez appreciate recommendations. - Continue amiodarone 200 mg by mouth twice a day. Hold if low BP Continue digoxin - Continuous cardiac telemetry. - EKG reviewed, irregular and paced rhythm, with left bundle branch block noted. Combined systolic and diastolic congestive heart failure, exacerbation History of mitral valve replacement Oct 2016 on Coumadin Subtherapeutic INR - Per records, patient underwent bi IVICD in 2010 with an EF of 20-20% at that time. Last ECHO showing improvement EF of 50% in Sep 2016. - ECHO this admission reviewed . Severely low EF of 20 %. Patient is with low BP, lasix is held. Also MARIE/ARBS nt started 2/2 low BP. Kidney indices not improving. Will consult nephrology. Patient poss with cardio renal syndrome. - Continue home Coreg 3.125 mg PO q12hr. Continue aspirin 81 mg PO daily. Continue digoxin 0.125 mg PO daily. DC lisinopril. - BNP 2273 on admission. - Obtain echo. Follow. - Continue Lasix, hold if low BP . Monitor intake and output.. - INR on presentation 1.3. On heparin drip bridge until therapeutic INR. Continue Coumadin. Recheck in a.m. Pharmacy to check Acute kidney injury: suspect secondary to CHF exacerbation - Creatinine on admission 1.78. - Lasix 40 mg twice a day by mouth. Monitor hypokalemia, start KCl 10 meq PO daily. Hold if low BP. Consult nephrology - Repeat BMP in am. Follow. - Avoid nephrotoxins. Type 2 diabetes mellitus, chronic - Obtain hemoglobin A1c. Follow. - Accu-Cheks ACHS. Sliding scale insulin, cover as needed. hold home meds, can continue at DC - Levemir 5 units sq before meals. - Heart healthy/diabetic diet. Dyslipidemia: Continue home medications including Zetia and pravastatin. Hypothyroidism: Resume Synthroid 75 mcg PO daily. DVT prophylaxis: SCDs/TEDs. Heparin, bridge Coumadin. Discussed with the patient. nurse Patti Jacome MD Mar 06, 2017 09:20
--- NOTE | 2017-03-06 15:42 | RADRPT ---
EXAM DATE/TIME: 03/06/2017 13:52 [facility] COMPARISON: No previous studies available for comparison. INDICATIONS : Increased BUN/creatinine. MEDICAL HISTORY : Congestive heart failure. Hypercholesterolemia. Glaucoma. Chest pain. Palpitations. Irregular heart beat. HTN. Renal disease. Diabetes. UTI. Anticoagulan therapy, Coumadin. SURGICAL HISTORY : Hysterectomy. Left cataract. Mitral valve replacement. AICD. ENCOUNTER: Initial ACUITY: 1 day PAIN SCORE: 0/10 LOCATION: Bilateral flank MEASUREMENTS: RIGHT KIDNEY: 10.8 x 4.8 x 5.9 cm LEFT KIDNEY: 10.1 x 4.1 x 5.7 cm FINDINGS: RIGHT KIDNEY: Renal cortex is normal in thickness and echotexture. No hydronephrosis, stone, or solid mass. There is a 17 mm mid zone cyst. LEFT KIDNEY: Renal cortex is normal in thickness and echotexture. No hydronephrosis, stone, or solid mass. There is a 10 mm mid zone cyst. BLADDER: Within normal limits given the degree of distension. Small right pleural effusion incidentally noted. Suspected small fluid in the right side of the abdom inal cavity as well, etiology uncertain. CONCLUSION: 1. No obstructive uropathy or other acute renal abnormality. Parenchymal echogenicity within normal l imits. 2. Small, benign-appearing bilateral cysts as above. 3. Right pleural effusion and questionable small ascites. Hardik Lynne MD on March 06, 2017 at 15:38 Board Certified Radiologist. This report was verified electronically.
[2017-03-06] MEDS: WARFARIN SOD 2 MG TAB PO SCH (16:41)
--- NOTE | 2017-03-06 17:12 | MB ---
cc: TANVI DONOVAN MD DATE OF CONSULTATION 03/06/17 REASON FOR CONSULTATION Elevated BUN and creatinine for evaluation. HISTORY OF PRESENT ILLNESS This is a 76-year-old female with past medical history of atrial fibrillation, diabetes mellitus, congestive heart failure, hyperlipidemia, history of mitral wall replacement in October 2016 who came to the hospital with complaint of shortness of breath and palpitation. I was called to see the patient because of elevated BUN and creatinine. The patient had BUN of 42 and creatinine of 1.7 on admission. Previously, she had acute kidney injury when she was admitted in October and, at that time, the creatinine was as high as 1.5 and it improved to 0.7-0.8 on November 02 and . The patient denies any known history of renal disease before she denies any nausea or vomiting. There is no history of diarrhea. She had some loose bowel motion. She was given stool softener here. Her appetite is normal. She has no dysuria, hematuria, denies taking any nonsteroidal anti-inflammatory drugs, did not notice any decrease in the urine output. PAST MEDICAL HISTORY 1. Diabetes mellitus, 2. Atrial fibrillation, 3. Congestive heart failure, 4. Hyperlipidemia. PAST SURGICAL HISTORY 1. Mitral replacement in October 2016, 2. Hysterectomy, 3. Tonsillectomy. 4. AICD placement. REVIEW OF SYSTEMS No history of fever. No sore throat. No headache, dizziness or blurring of vision. She has some shortness of breath which has been gradually getting worse, but it is better now. No chest pain. No palpitation. No nausea or vomiting. No abdominal pain. No history of diarrhea. SOCIAL HISTORY The patient is . There is no history of smoking. Occasionally has alcoholic beverages. FAMILY HISTORY Noncontributory. ALLERGIES No known drug allergies. MEDICATIONS Currently she is on following medications - 1. Lasix 40 mg IV b.i.d., 2. Nusrat-Colace 1 tablet b.i.d. 3. Levemir 5 units a.c. with breakfast. 4. Aspirin 81 mg daily. 5. Lanoxin 0.125 mg daily 6. Amaryl 4 mg daily. 7. Potassium chloride 10 mEq daily. 8. Prednisone 10 mg daily. 9. Amiodarone 400 mg daily. 10. Cardizem 120 mg once a day 11. Levothyroxine 75 mcg once a day 12. Warfarin 2 mg once a day 13. Zetia 10 mg q.h.s. 14. Pravachol 40 mg q.h.s. 15. Carvedilol 3.125 mg q. 12-hour. 16. Metoprolol 25 mg q. 12-hour. 17. Insulin aspart sliding scale. 18. Diltiazem infusion. 19. Heparin infusion. 20. Zofran as needed 21. Restoril as needed, 22. Dulcolax as needed PHYSICAL EXAMINATION GENERAL: The patient is awake, alert. She is not in acute distress. VITAL SIGNS: Her last blood pressure 95/47, pulse is around 97, temperature 97.3, oxygen saturation 91-93% HEENT: Pupils equally reacting to light. Nonicteric sclerae, conjunctivae normal. NECK: Supple. JVD is slightly elevated. LUNGS: The patient has bilateral good air entry with occasional wheezing and basilar rales. HEART: S1, S2, regular rhythm. ABDOMEN: Soft lax. There is no tenderness. There is some distension. EXTREMITIES: She has mild edema in the legs. LABORATORY DATA WBC count is 8.5, hemoglobin 11.8, platelet count 183, neutrophils 77.9%. Sodium 137. Potassium 4.7, chloride 102, bicarb 26.4, BUN 45, creatinine 1.7, BNP is 2532. Urinalysis showing trace proteinuria. Leukocyte esterase positive with WBCs innumerable. This was done in September. IMAGING STUDIES The patient had chest x-ray done on admission which shows that the patient has scarring or consolidation in the right mid and lower lung. ASSESSMENT/PLAN 1. Acute kidney injury 2. Atrial fibrillation with rapid ventricular response. 3. History of mitral valve replacement 4. Congestive heart failure with some fluid overload. 5. Diabetes mellitus The patient has normal creatinine at baseline and now has acute worsening and developed acute kidney injury. Most likely it is ATN from the hypotension or cardiorenal because of rapid ventricular rate. Now the pulse seems to be improving, although the blood pressure is still on the lower side. I will check the ultrasound of the kidneys, repeat the urinalysis. Agree with continuing the diuretics at present and follow the urine output and the BUN and creatinine. Thank you for the consultation and I will follow the patient while she is in the hospital. MD NIRMAL Dumont/ /12:14 PM /4:56 PM
[2017-03-06] MEDS: EZETIMIBE 10 MG TAB PO SCH (20:47)
[2017-03-06] MEDS: PRAVASTATIN SOD 40 MG TAB PO SCH (20:47)
[2017-03-06] MEDS: ACETAMINOPHEN 325 MG TAB PO PRN (20:48)
[2017-03-06] MEDS: TEMAZEPAM 15 MG CAP PO PRN (21:05)
[2017-03-07] VITALS (29 sets, daily range): BP systolic 91–110; BP diastolic 53–64; PULSE 70–88; RESP 18–24; TEMP 96.3–98.1; O2SAT 91–98
[2017-03-07] MEDS: HEPARIN-D5W INJ 250 ML IV SCH (01:01)
[2017-03-07] MEDS: LEVOTHYROXINE SODIUM 75 MCG TAB PO SCH (05:45)
[2017-03-07] MEDS: INSULIN ASPART SUPPLEMENTAL SCALE SQ SCH ×4 (06:00→20:40)
[2017-03-07] MEDS: INSULIN DETEMIR 100 UNITS/ML VIAL SQ SCH (07:00)
[2017-03-07] MEDS: FUROSEMIDE 40 MG TAB PO SCH ×2 (08:45→21:03)
[2017-03-07] MEDS: GLIMEPIRIDE 4 MG TAB PO SCH (08:45)
[2017-03-07] MEDS: DILTIAZEM-CD 120 MG CAP ER PO SCH (08:45)
[2017-03-07] MEDS: ASPIRIN EC 81 MG TABEC PO SCH (08:45)
[2017-03-07] MEDS: POTASSIUM CHLORIDE 10 MEQ CONTROLLED RELEASE TAB PO SCH (08:45)
[2017-03-07] MEDS: predniSONE 10 MG TAB PO SCH (08:45)
[2017-03-07] MEDS: AMIODARONE 200 MG TAB PO SCH (08:45)
[2017-03-07] MEDS: METOPROLOL TARTRATE 25 MG TAB PO SCH ×2 (08:45→21:03)
[2017-03-07] MEDS: CARVEDILOL 3.125 MG TAB PO SCH ×2 (08:45→21:03)
[2017-03-07] MEDS: SODIUM CHLORIDE 0.9% FLUSH 10 ML FLUSH IV FLUSH SCH ×2 (08:46→21:04)
[2017-03-07] MEDS: DIGOXIN 0.125 MG TAB PO SCH (08:46)
[2017-03-07] MEDS: DOCUSATE SODIUM 50 MG/SENNA 8.6 MG TAB PO SCH ×2 (08:46→21:00)
[2017-03-07 09:29] LABS: HEMATOCRIT 39.8 % (35.0-46.0); MEAN CELL VOLUME 99.3 FL (80.0-100.0); MEAN CORPUSCULAR HEMOGLOBIN 31.4 PG (27.0-34.0); MEAN CORPUSCULAR HGB CONC 31.7 % (32.0-36.0); PLATELET COUNT 204 TH/MM3 (150-450); RED BLOOD COUNT 4.01 MIL/MM3 (4.00-5.30); RED CELL DISTRIBUTION WIDTH 16.5 % (11.6-17.2); REVIEW FLAG FINAL; WHITE BLOOD COUNT 9.4 TH/MM3 (4.0-11.0)
[2017-03-07 09:39] LABS: APTT (PATIENT) 47.5 SEC (24.3-30.1); INTERNATIONAL NORMALIZED RATIO 1.3 RATIO; PROTHROMBIN TIME - PATIENT 14.7 SEC (9.8-11.6)
[2017-03-07 10:11] LABS: BICARBONATE 26.8 MEQ/L (21.0-32.0); POTASSIUM 3.7 MEQ/L (3.5-5.1)
--- NOTE | 2017-03-07 11:07 | HHI.PR ---
Subjective Remarks Resting comfortably in bed No chest pain or short of breath Cardiorenal on board Blood pressure on the lower side Objective Vitals Vital Signs Date Time Temp Pulse Resp B/P Pulse Ox O2 Delivery O2 Flow Rate FiO2 03/07/17 10:01 84 03/07/17 09:00 82 03/07/17 08:37 98 21 03/07/17 08:30 97.4 87 18 108/64 93 03/07/17 08:00 78 03/07/17 07:01 78 03/07/17 06:00 70 03/07/17 05:00 70 03/07/17 04:00 72 03/07/17 03:00 82 03/07/17 03:00 96.3 76 24 94/60 98 03/07/17 02:00 78 03/07/17 01:00 78 03/07/17 00:00 78 03/06/17 23:00 75 03/06/17 23:00 96.6 79 26 93/52 98 03/06/17 22:00 78 03/06/17 21:00 82 03/06/17 20:00 86 03/06/17 19:00 97.1 85 26 90/56 96 03/06/17 19:00 86 03/06/17 18:01 84 03/06/17 17:00 84 03/06/17 16:01 82 03/06/17 15:41 97.9 84 18 91/55 93 03/06/17 15:00 82 03/06/17 14:00 82 03/06/17 13:00 82 03/06/17 12:00 82 03/06/17 11:15 97.3 97 18 95/47 91 I/O 03/06/17 03/06/17 03/06/17 03/07/17 03/07/17 03/07/17 07:00 15:00 23:00 07:00 15:00 23:00 Intake Total 510 ml 1044 ml 290 ml Output Total 300 ml 300 ml Balance 210 ml 744 ml 290 ml Intake Oral 480 ml 840 ml 240 ml IV Total 30 ml 204 ml 50 ml Output Urine Total 300 ml 300 ml # Voids 2 3 # Bowel Movements 2 2 Result Diagram: 03/07/1737 03/07/1737 Objective Remarks GENERAL: This is a well-nourished, well-developed patient, in no apparent distress. CARDIOVASCULAR: Regular rate and irregular rhythm without murmurs, gallops, or rubs. RESPIRATORY: Clear to auscultation. Breath sounds equal bilaterally. No wheezes , rales, or rhonchi. GASTROINTESTINAL: Abdomen soft, non-tender, nondistended. Normal, active bowel sounds MUSCULOSKELETAL: Extremities without clubbing, cyanosis, or edema. NEURO: Alert & Oriented x4 to person, place, time, situation. Moves all ext x4 A/P Assessment and Plan 03/07: Renal recommended continuing diuresis, cardio decreased amiodarone, continue current management, follow BMP A/P: Mrs. Huerta is a 76-year-old female patient with a known history of atrial fibrillation, diabetes mellitus, congestive heart failure, hyperlipidemia, and mitral valve replacement in Oct 2016 who presented to the ED from Dr. Stubbs's office with complaints of shortness of breath and hypotension. Per patient, an EKG was performed and she was sent here. Atrial fibrillation with RVR, acute on chronic - Given Cardizem 17 mg IV bolus in ED. Given another Cardizem IV 10 mg IV in ED. - Cardizem drip to keep HR < 90. Monitor BP closely. Currently off cardizem drip. -Appreciate cardiology consultation -Continue amiodarone titrated by cardiology - Continuous cardiac telemetry. - EKG reviewed, irregular and paced rhythm, with left bundle branch block noted. Combined systolic and diastolic congestive heart failure, exacerbation History of mitral valve replacement Oct 2016 on Coumadin Subtherapeutic INR - Per records, patient underwent bi IVICD in 2010 with an EF of 20-20% at that time. Last ECHO showing improvement EF of 50% in Sep 2016. - ECHO this admission reviewed . Severely low EF of 20 %. Patient is with low BP, lasix is held. Also MARIE/ARBS nt started 2/2 low BP. Kidney indices not improving. Will consult nephrology. Patient poss with cardio renal syndrome. - Continue home Coreg 3.125 mg PO q12hr. Continue aspirin 81 mg PO daily. Continue digoxin 0.125 mg PO daily. DC lisinopril. - BNP 2273 on admission. - Obtain echo. Follow. - Continue Lasix, hold if low BP . Monitor intake and output.. - INR on presentation 1.3. On heparin drip bridge until therapeutic INR. Continue Coumadin. Recheck in a.m. Pharmacy to check Acute kidney injury: suspect secondary to CHF exacerbation - Creatinine on admission 1.78. - Lasix 40 mg twice a day by mouth. Monitor hypokalemia, start KCl 10 meq PO daily. Hold if low BP. Patient presently consultation continue diuresis - Repeat BMP in am. Follow. - Avoid nephrotoxins. Type 2 diabetes mellitus, chronic - Obtain hemoglobin A1c. 8.2. - Accu-Cheks ACHS. Sliding scale insulin, cover as needed. hold home meds, can continue at [place] - Levemir - Heart healthy/diabetic diet. Dyslipidemia: Continue home medications including Zetia and pravastatin. Hypothyroidism: Resume Synthroid 75 mcg PO daily. DVT prophylaxis: SCDs/TEDs. Heparin, bridge Coumadin. Caroline Villalobos MD Mar 07, 2017 11:07
--- NOTE | 2017-03-07 12:54 | HHI.NPPN ---
Subjective History of Present Illness 76-year-old female with past medical history of atrial fibrillation, diabetes mellitus, congestive heart failure, hyperlipidemia, history of mitral wall replacement in October 2016 who came to the hospital with complaint of shortness of breath and palpitation. Additional Remarks Patient is alert, sitting, feeling better, no chest pain. Review of Systems General Constitutional: Fatigue Cardiovascular Cardiac: Edema, EDWARDS Objective Data Data 03/06/17 03/07/17 19:00 07:00 Intake Total 1044 ml 290 ml Output Total 300 ml Balance 744 ml 290 ml Intake Oral 840 ml 240 ml IV Total 204 ml 50 ml Output Urine Total 300 ml # Voids 2 3 # Bowel Movements 2 Vital Signs Date Time Temp Pulse Resp B/P Pulse Ox O2 Delivery O2 Flow Rate FiO2 03/07/17 11:30 97.9 80 18 101/56 91 03/07/17 10:01 84 03/07/17 09:00 82 03/07/17 08:37 98 21 03/07/17 08:30 97.4 87 18 108/64 93 03/07/17 08:00 78 03/07/17 07:01 78 03/07/17 06:00 70 03/07/17 05:00 70 03/07/17 04:00 72 03/07/17 03:00 82 03/07/17 03:00 96.3 76 24 94/60 98 03/07/17 02:00 78 03/07/17 01:00 78 03/07/17 00:00 78 03/06/17 23:00 75 03/06/17 23:00 96.6 79 26 93/52 98 03/06/17 22:00 78 03/06/17 21:00 82 03/06/17 20:00 86 03/06/17 19:00 97.1 85 26 90/56 96 03/06/17 19:00 86 03/06/17 18:01 84 03/06/17 17:00 84 03/06/17 16:01 82 03/06/17 15:41 97.9 84 18 91/55 93 03/06/17 15:00 82 03/06/17 14:00 82 03/06/17 13:00 82 -: 03/07/17 0837 03/07/17 0837 Physical Exam General Appearance: No Acute Distress, Comfortable Eyes Eye Exam: Pupils Equal Throat Throat Exam: Oral Mucosa [place] & Moist Pulmonary Resp Exam: Breath Sounds Equal, No Distress, Rhonchi, Decreased Bases Cardiology CV Exam: Regular Gastrointestinal/Abdomen GI Exam: Soft, Non-Tender, Bowel Sounds Present Extremeties Extremities Exam: Moderate Edema, Pitting Edema Neurologic Neuro Exam: Alert, Awake, Oriented Psychiatric Psych Exam: Appropriate Responses Assessment/Plan Assessment Summary: FRANCES/Acute Renal Failure Problem List: (1) CHF (congestive heart failure), NYHA class III (2) Hypertension (3) Diabetes mellitus (4) Atrial fibrillation with RVR (5) Combined systolic and diastolic congestive heart failure (6) S/P MVR (mitral valve replacement) (7) Acute kidney injury Plan Patient has improvement in the Creatinine. BP is stable and HR controlled. On IV Heparin, also getting Lasix, Renal U/S noted. still has leg edema, continue Lasix, follow the urine out put and BMP. John Duran MD Mar 07, 2017 12:54
[2017-03-07] MEDS: WARFARIN SOD 2.5 MG TAB PO SCH (17:39)
[2017-03-07] MEDS: EZETIMIBE 10 MG TAB PO SCH (21:03)
[2017-03-07] MEDS: PRAVASTATIN SOD 40 MG TAB PO SCH (21:03)
[2017-03-08] VITALS (25 sets, daily range): BP systolic 92–111; BP diastolic 52–68; PULSE 70–92; RESP 22–40; TEMP 97.2–97.9; O2SAT 93–98
[2017-03-08] MEDS: ACETAMINOPHEN 325 MG TAB PO PRN ×2 (02:47→21:15)
[2017-03-08] MEDS: LEVOTHYROXINE SODIUM 75 MCG TAB PO SCH (05:48)
[2017-03-08] MEDS: DEXTROSE 50% IN WATER 50 ML VIAL(D50) IV PRN ×2 (05:48→23:12)
[2017-03-08] MEDS: INSULIN DETEMIR 100 UNITS/ML VIAL SQ SCH (06:24)
[2017-03-08] MEDS: INSULIN ASPART SUPPLEMENTAL SCALE SQ SCH ×4 (06:24→21:00)
[2017-03-08 06:34] LABS: APTT (PATIENT) 52.5 SEC (24.3-30.1); INTERNATIONAL NORMALIZED RATIO 1.4 RATIO; PROTHROMBIN TIME - PATIENT 16.1 SEC (9.8-11.6)
[2017-03-08 06:39] LABS: BICARBONATE 25.5 MEQ/L (21.0-32.0)
[2017-03-08] MEDS: POTASSIUM CHLORIDE 10 MEQ CONTROLLED RELEASE TAB PO SCH (08:57)
[2017-03-08] MEDS: DOCUSATE SODIUM 50 MG/SENNA 8.6 MG TAB PO SCH ×2 (08:57→21:16)
[2017-03-08] MEDS: FUROSEMIDE 40 MG TAB PO SCH ×2 (08:57→21:13)
[2017-03-08] MEDS: ASPIRIN EC 81 MG TABEC PO SCH (08:58)
[2017-03-08] MEDS: predniSONE 10 MG TAB PO SCH (08:58)
[2017-03-08] MEDS: DIGOXIN 0.125 MG TAB PO SCH (08:58)
[2017-03-08] MEDS: AMIODARONE 200 MG TAB PO SCH (08:59)
[2017-03-08] MEDS: DILTIAZEM-CD 120 MG CAP ER PO SCH (08:59)
[2017-03-08] MEDS: CARVEDILOL 3.125 MG TAB PO SCH ×2 (08:59→21:13)
[2017-03-08] MEDS: GLIMEPIRIDE 4 MG TAB PO SCH (09:00)
[2017-03-08] MEDS: SODIUM CHLORIDE 0.9% FLUSH 10 ML FLUSH IV FLUSH SCH ×2 (09:00→21:00)
[2017-03-08] MEDS: METOPROLOL TARTRATE 25 MG TAB PO SCH ×2 (09:00→21:13)
--- NOTE | 2017-03-08 12:52 | HHI.PR ---
Subjective Remarks Laying in bed no fever or chills, increased BNP today, patient with a right pleural effusion and small ascites Objective Vitals Vital Signs Date Time Temp Pulse Resp B/P Pulse Ox O2 Delivery O2 Flow Rate FiO2 03/08/17 12:02 79 03/08/17 11:26 75 03/08/17 11:26 97.5 76 24 101/56 96 03/08/17 10:30 70 03/08/17 10:08 97 21 03/08/17 09:02 82 03/08/17 08:02 76 03/08/17 07:55 73 03/08/17 07:55 97.6 73 28 92/52 98 03/08/17 06:00 74 03/08/17 05:00 78 03/08/17 04:00 78 03/08/17 03:00 81 03/08/17 03:00 97.9 76 28 100/60 94 03/08/17 02:00 80 03/08/17 01:00 84 03/08/17 00:00 82 03/07/17 23:54 95 03/07/17 23:00 81 03/07/17 23:00 97.6 84 24 110/53 97 03/07/17 22:00 84 03/07/17 21:00 84 03/07/17 20:00 84 03/07/17 19:00 83 03/07/17 19:00 97.8 88 24 101/55 97 03/07/17 18:01 84 03/07/17 17:00 88 03/07/17 16:01 82 03/07/17 15:23 98.1 84 18 91/62 96 03/07/17 15:00 88 03/07/17 14:00 86 03/07/17 13:01 84 I/O 03/07/17 03/07/17 03/07/17 03/08/17 03/08/17 03/08/17 07:00 15:00 23:00 07:00 15:00 23:00 Intake Total 290 ml 826 ml 290 ml Balance 290 ml 826 ml 290 ml Intake Oral 240 ml 702 ml 240 ml IV Total 50 ml 124 ml 50 ml # Voids 3 2 3 # Bowel Movements 2 Result Diagram: 03/07/17 0837 03/08/17 0550 Objective Remarks GENERAL: This is a well-nourished, well-developed patient, in no apparent distress. CARDIOVASCULAR: Regular rate and irregular rhythm without murmurs, gallops, or rubs. RESPIRATORY: Clear to auscultation. Breath sounds equal bilaterally. No wheezes , rales, or rhonchi. GASTROINTESTINAL: Abdomen soft, non-tender, nondistended. Normal, active bowel sounds MUSCULOSKELETAL: Extremities without clubbing, cyanosis, or edema. NEURO: Alert & Oriented x4 to person, place, time, situation. Moves all ext x4 A/P Assessment and Plan A/P: Mrs. Huerta is a 76-year-old female patient with a known history of atrial fibrillation, diabetes mellitus, congestive heart failure, hyperlipidemia, and mitral valve replacement in Oct 2016 who presented to the ED from Dr. Stubbs's office with complaints of shortness of breath and hypotension. Per patient, an EKG was performed and she was sent here. Atrial fibrillation with RVR, acute on chronic - Given Cardizem 17 mg IV bolus in ED. Given another Cardizem IV 10 mg IV in ED. - Cardizem drip to keep HR < 90. Monitor BP closely. Currently off cardizem drip. -Appreciate cardiology consultation -Continue amiodarone titrated by cardiology - Continuous cardiac telemetry. - EKG reviewed, irregular and paced rhythm, with left bundle branch block noted. Combined systolic and diastolic congestive heart failure, exacerbation History of mitral valve replacement Oct 2016 on Coumadin Subtherapeutic INR - Per records, patient underwent bi IVICD in 2010 with an EF of 20-20% at that time. Last ECHO showing improvement EF of 50% in Sep 2016. - ECHO this admission reviewed . Severely low EF of 20 %. Patient is with low BP, lasix is held. Also MARIE/ARBS nt started 2/2 low BP. Kidney indices not improving. Will consult nephrology. Patient poss with cardio renal syndrome. - Continue home Coreg 3.125 mg PO q12hr. Continue aspirin 81 mg PO daily. Continue digoxin 0.125 mg PO daily. DC lisinopril. - BNP 2273 on admission. - Obtain echo. Follow. - Continue Lasix, hold if low BP . Monitor intake and output.. - INR on presentation 1.3. On heparin drip bridge until therapeutic INR. Continue Coumadin. INR 1.4 today Recheck in a.m. Pharmacy following Acute kidney injury: suspect secondary to CHF exacerbation - Creatinine on admission 1.78. - Lasix 40 mg twice a day by mouth. Monitor hypokalemia, start KCl 10 meq PO daily. Hold if low BP. Patient presently consultation continue diuresis - Repeat BMP in am. Follow. - Avoid nephrotoxins. Renal recommended continuing diuresis, cardio decreased amiodarone, continue current management, follow BMP Type 2 diabetes mellitus, chronic - Obtain hemoglobin A1c. 8.2. - Accu-Cheks ACHS. Sliding scale insulin, cover as needed. hold home meds, can continue at [place] - Levemir - Heart healthy/diabetic diet. Dyslipidemia: Continue home medications including Zetia and pravastatin. Hypothyroidism: Resume Synthroid 75 mcg PO daily. DVT prophylaxis: SCDs/TEDs. Heparin, bridge Coumadin. Caroline Villalobos MD Mar 08, 2017 12:52
--- NOTE | 2017-03-08 15:38 | HHI.NPPN ---
Subjective History of Present Illness 76-year-old female with past medical history of atrial fibrillation, diabetes mellitus, congestive heart failure, hyperlipidemia, history of mitral wall replacement in October 2016 who came to the hospital with complaint of shortness of breath and palpitation. Additional Remarks Patient is alert, now on room air, breathing is better, not in distress. Review of Systems General Constitutional: Fatigue Cardiovascular Cardiac: Edema, EDWARDS Objective Data Data 03/07/17 03/08/17 19:00 07:00 Intake Total 1116 ml Balance 1116 ml Intake Oral 942 ml IV Total 174 ml # Voids 5 # Bowel Movements 2 Vital Signs Date Time Temp Pulse Resp B/P Pulse Ox O2 Delivery O2 Flow Rate FiO2 03/08/17 14:34 83 03/08/17 13:08 78 03/08/17 12:02 79 03/08/17 11:26 75 03/08/17 11:26 97.5 76 24 101/56 96 03/08/17 10:30 70 03/08/17 10:08 97 21 03/08/17 09:02 82 03/08/17 08:02 76 03/08/17 07:55 73 03/08/17 07:55 97.6 73 28 92/52 98 03/08/17 06:00 74 03/08/17 05:00 78 03/08/17 04:00 78 03/08/17 03:00 81 03/08/17 03:00 97.9 76 28 100/60 94 03/08/17 02:00 80 03/08/17 01:00 84 03/08/17 00:00 82 03/07/17 23:54 95 03/07/17 23:00 81 03/07/17 23:00 97.6 84 24 110/53 97 03/07/17 22:00 84 03/07/17 21:00 84 03/07/17 20:00 84 03/07/17 19:00 83 03/07/17 19:00 97.8 88 24 101/55 97 03/07/17 18:01 84 03/07/17 17:00 88 03/07/17 16:01 82 -: 03/07/17 0837 03/08/17 0550 Physical Exam General Appearance: No Acute Distress, Comfortable Eyes Eye Exam: Pupils Equal Throat Throat Exam: Oral Mucosa [place] & Moist Pulmonary Resp Exam: Breath Sounds Equal, No Distress, Rhonchi, Decreased Bases Cardiology CV Exam: Regular Gastrointestinal/Abdomen GI Exam: Soft, Non-Tender, Bowel Sounds Present Extremeties Extremities Exam: Moderate Edema, Pitting Edema Neurologic Neuro Exam: Alert, Awake, Oriented Psychiatric Psych Exam: Appropriate Responses Assessment/Plan Assessment Summary: FRANCES/Acute Renal Failure Problem List: (1) CHF (congestive heart failure), NYHA class III (2) Hypertension (3) Diabetes mellitus (4) Atrial fibrillation with RVR (5) Combined systolic and diastolic congestive heart failure (6) S/P MVR (mitral valve replacement) (7) Acute kidney injury Plan Patient has been on Lasix and has adequate UO. There is further improvement in the Creatinine. BP is stable and HR controlled. Renal U/S noted. Leg edema is better, continue Lasix, follow the urine out put and BMP. INR is still 1.4, continue Heparin. Problem Qualifiers (1) Hypertension: Qualified Code: I10 - Essential hypertension (2) Diabetes mellitus: John Duran MD Mar 08, 2017 15:37
[2017-03-08] MEDS: WARFARIN SOD 2.5 MG TAB PO SCH (16:21)
[2017-03-08] MEDS: PRAVASTATIN SOD 40 MG TAB PO SCH (21:13)
[2017-03-08] MEDS: TEMAZEPAM 15 MG CAP PO PRN (21:13)
[2017-03-08] MEDS: EZETIMIBE 10 MG TAB PO SCH (21:13)
[2017-03-08] MEDS ORDERED: GLUCAGON 1 MG/ML VIAL IM PRN (23:30)
[2017-03-09] VITALS (17 sets, daily range): BP systolic 94–161; BP diastolic 54–103; PULSE 70–96; RESP 18–24; TEMP 97.2–98.6; O2SAT 93–100
[2017-03-09] MEDS: DEXTROSE 50% IN WATER 50 ML VIAL(D50) IV PRN ×3 (00:57→04:58)
[2017-03-09] MEDS: HEPARIN-D5W INJ 250 ML IV SCH (04:12)
[2017-03-09] MEDS: LEVOTHYROXINE SODIUM 75 MCG TAB PO SCH (06:23)
[2017-03-09 08:18] LABS: APTT (PATIENT) 40.4 SEC (24.3-30.1); INTERNATIONAL NORMALIZED RATIO 1.5 RATIO; PROTHROMBIN TIME - PATIENT 16.8 SEC (9.8-11.6)
[2017-03-09] MEDS: SODIUM CHLORIDE 0.9% FLUSH 10 ML FLUSH IV FLUSH SCH ×2 (08:23→21:00)
[2017-03-09] MEDS: DIGOXIN 0.125 MG TAB PO SCH (08:23)
[2017-03-09] MEDS: DOCUSATE SODIUM 50 MG/SENNA 8.6 MG TAB PO SCH ×2 (08:23→21:00)
[2017-03-09] MEDS: predniSONE 10 MG TAB PO SCH (08:23)
[2017-03-09] MEDS: POTASSIUM CHLORIDE 10 MEQ CONTROLLED RELEASE TAB PO SCH (08:23)
[2017-03-09] MEDS: FUROSEMIDE 40 MG TAB PO SCH ×2 (08:23→21:24)
[2017-03-09] MEDS: AMIODARONE 200 MG TAB PO SCH (08:23)
[2017-03-09] MEDS: METOPROLOL TARTRATE 25 MG TAB PO SCH ×2 (08:23→21:24)
[2017-03-09] MEDS: ASPIRIN EC 81 MG TABEC PO SCH (08:23)
[2017-03-09] MEDS: CARVEDILOL 3.125 MG TAB PO SCH ×2 (08:23→21:24)
[2017-03-09] MEDS: DILTIAZEM-CD 120 MG CAP ER PO SCH (09:00)
[2017-03-09] MEDS ORDERED: DEXTROSE 50% IN WATER 50 ML SYRINGE ONE (09:56)
[2017-03-09] MEDS ORDERED: DEXTROSE 10% INJ 1,000 ML IV SCH (10:00)
--- NOTE | 2017-03-09 10:07 | HHI.PR ---
Subjective Remarks The pt was tired. She said her breathing was better. She said her sugar has been fluctuating. She has not been out of bed. She says she has a sore on her left leg which has been hurting her. Discussed with nursing at the bedside. Objective Vitals Vital Signs Date Time Temp Pulse Resp B/P Pulse Ox O2 Delivery O2 Flow Rate FiO2 03/09/17 07:00 79 03/09/17 05:45 97.5 74 20 129/77 97 03/09/17 00:08 97.2 70 24 94/63 100 03/08/17 22:25 97.2 84 40 109/68 93 03/08/17 22:00 82 03/08/17 21:00 88 03/08/17 20:00 84 03/08/17 19:00 91 03/08/17 19:00 97.5 92 28 111/65 95 03/08/17 18:06 74 03/08/17 17:42 76 03/08/17 16:41 75 03/08/17 15:35 87 03/08/17 15:35 97.4 87 22 101/58 94 03/08/17 14:34 83 03/08/17 13:08 78 03/08/17 12:02 79 03/08/17 11:26 75 03/08/17 11:26 97.5 76 24 101/56 96 03/08/17 10:30 70 03/08/17 10:08 97 21 I/O 03/08/17 03/08/17 03/08/17 03/09/17 03/09/17 03/09/17 07:00 15:00 23:00 07:00 15:00 23:00 Intake Total 290 ml 620 ml 240 ml Balance 290 ml 620 ml 240 ml Intake Oral 240 ml 620 ml 240 ml IV Total 50 ml # Voids 3 2 3 # Bowel Movements 2 0 Result Diagram: 03/07/17 0837 03/09/17 0034 Imaging Last Impressions Renal Ultrasound 03/06/17 0000 Signed Impressions: Service Date/Time: Monday, March 06, 2017 13:52 - CONCLUSION: 1. No obstructive uropathy or other acute renal abnormality. Parenchymal echogenicity within normal limits. 2. Small, benign-appearing bilateral cysts as above. 3. Right pleural effusion and questionable small ascites. Hardik Lynne MD Chest X-Ray 03/04/17 4720 Signed Impressions: Service Date/Time: February 11:44 - CONCLUSION: Linear non-consolidative infiltrates or scarring in the lateral right mid and lower lung. Roshan Ward MD Objective Remarks GENERAL: This is a well-nourished, well-developed patient, in no apparent distress. SKIN: Small sore on left lateral leg with a blister component, tender to palpation. CARDIOVASCULAR: Regular rate and irregular rhythm without murmurs, gallops, or rubs. RESPIRATORY: Clear to auscultation. Breath sounds equal bilaterally. No wheezes , rales, or rhonchi. GASTROINTESTINAL: Abdomen soft, non-tender, nondistended. GI: Normoactive bowel sounds, nontender. MUSCULOSKELETAL: Extremities with trace edema. NEURO: Alert & Oriented x4 to person, place, time, situation. Moves all ext x4. Lethargic. PSYCH: Slightly flattened affect. Medications and IVs Current Medications Medications (Trade) Dose Ordered Sig/Amaris Route Start Time Stop Time Status Last Admin (Ecotrin Ec) 81 mg DAILY PO 03/05/17 09:00 03/09/17 08:23 (Coreg) 3.125 mg Q12HR PO 03/04/17 21:00 03/09/17 08:23 (Lanoxin) 0.125 mg DAILY PO 03/05/17 09:00 03/09/17 08:23 (Lasix) 40 mg BID PO 03/04/17 21:00 03/09/17 08:23 (Synthroid) 75 mcg DAILY@0600 PO 03/05/17 06:00 03/09/17 06:23 (KCl) 10 meq DAILY PO 03/05/17 09:00 03/09/17 08:23 Prednisone 10 mg 10 mg DAILY PO 03/05/17 09:00 03/09/17 08:23 (Cardizem Inj/NS Inj) 125 ml @ 0 mls/hr TITRATE IV 03/04/17 13:45 03/04/17 15:49 (NS Flush) 2 ml UNSCH PRN IV FLUSH 03/04/17 14:30 (NS Flush) 2 ml BID IV FLUSH 03/04/17 21:00 03/09/17 08:23 (Tylenol) 650 mg Q4H PRN PO 03/04/17 14:30 03/08/17 21:15 (Zofran Inj) 4 mg Q6H PRN IVP 03/04/17 14:30 (Restoril) 15 mg HS PRN PO 03/04/17 14:30 03/08/17 21:13 (Nusrat-Colace) 1 tab BID PO 03/04/17 21:00 03/08/17 21:16 (Milk Of Magnesia Liq) 30 ml Q12H PRN PO 03/04/17 14:30 (Senokot) 17.2 mg Q12H PRN PO 03/04/17 14:30 (Dulcolax Supp) 10 mg DAILY PRN RECTAL 03/04/17 14:30 (Lactulose Liq) 30 ml DAILY PRN PO 03/04/17 14:30 (D50w (Vial) Inj) 50 ml UNSCH PRN IV 03/04/17 14:45 03/09/17 00:57 (Glucagon Inj) 1 mg UNSCH PRN OTHER 03/04/17 14:45 (Zetia) 10 mg HS PO 03/04/17 21:00 03/08/17 21:13 (Pravachol) 40 mg HS PO 03/04/17 21:00 03/08/17 21:13 (Pill Splitter) 1 ea UNSCH PRN OTHER 03/04/17 16:00 (Heparin Inj) 5,000 units UNSCH PRN IV 03/05/17 00:15 Heparin Sodium (Porcine) 2500 units 2,500 units UNSCH PRN IV 03/05/17 00:15 (Heparin-D5W Inj) 250 ml @ 0 mls/hr TITRATE IV 03/04/17 18:15 03/09/17 04:12 Metoprolol Tartrate 25 mg 25 mg Q12HR PO 03/04/17 21:00 03/09/17 08:23 (Coumadin Consult Pharmacy) 0 ml @ 0 mls/hr UNSCH OTHER 03/05/17 07:45 (Cordarone) 200 mg DAILY PO 03/06/17 09:00 03/09/17 08:23 (Cardizem Cd) 120 mg DAILY PO 03/06/17 09:00 03/08/17 08:59 Warfarin Sodium 2.5 mg 2.5 mg DAILY@1600 PO 03/07/17 16:00 03/08/17 16:21 (Coumadin Consult Pharmacy) 0 ml @ 0 mls/hr UNSCH OTHER 03/08/17 11:45 (D50w (Vial) Inj) 50 ml UNSCH PRN IV 03/08/17 23:30 03/09/17 04:58 Glucagon 1 mg 1 mg STAT PRN IM 03/08/17 23:30 (D10w Inj) 1,000 ml @ 20 mls/hr Q24H IV 03/09/17 10:00 03/10/17 10:59 A/P Assessment and Plan Mrs. Huerta is a 76-year-old female patient with a known history of atrial fibrillation, diabetes mellitus, congestive heart failure, hyperlipidemia, and mitral valve replacement in Oct 2016 who presented to the ED from Dr. Stubbs's office with complaints of shortness of breath and hypotension. Per patient, an EKG was performed and she was sent here. Atrial fibrillation with RVR, acute on chronic Given Cardizem 17 mg IV bolus in ED. Given another Cardizem IV 10 mg IV in ED. Cardizem drip was started. Appreciate cardiology consultation. EKG reviewed, irregular and paced rhythm, with left bundle branch block noted. - Continue amiodarone and diltiazem titrated by cardiology. - Continuous cardiac telemetry. 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 Per records, patient underwent bi IVICD in 2010 with an EF of 20-20% at that time. ECHO with severely low EF of 20 %. Patient is with low BP. MARIE/ARB not started 2/2 low BP. BNP markedly elevated. - Continue home Coreg 3.125 mg PO q12hr, aspirin, digoxin. - On heparin drip bridge until therapeutic INR. Continue Coumadin. Recheck in a.m. Pharmacy assisting. - diuresis per nephrology. On D10 at a low rate for hypoglycemia. Acute kidney injury Suspect secondary to CHF exacerbation. Kidney indices slightly improving. Renal US noted. - follow up with nephrology. - Repeat BMP in am. - Avoid nephrotoxins. - continue diuresis. Type 2 diabetes mellitus/ Hypoglycemia Hemoglobin A1c 8.2%. On Levemir. Has been having bouts of severe hypoglycemia. - d/c Levemir. - follow glucose q15 minutes until over 100, then follow every hour. - D50 ordered. Will start low rate of D10 afterwards. - regular diet. DVT prophylaxis: SCDs/TEDs, Heparin, bridge, Coumadin. Discharge Planning Awaiting clinical improvement. Magen Swanson DO Mar 09, 2017 10:07
[2017-03-09 12:07] LABS: AUTOMATED NEUTROPHIL # 9.3 TH/MM3 (1.8-7.7); BASOPHIL # 0.1 TH/MM3 (0-0.2); BASOPHIL % 0.4 % (0.0-2.0); EOSINOPHIL # 0.5 TH/MM3 (0-0.4); EOSINOPHIL % 3.8 % (0.0-4.0); HEMATOCRIT 38.7 % (35.0-46.0); HEMO FLAGS DIFF FINAL; LYMPH % 8.8 % (9.0-44.0); LYMPHOCYTE # 1.1 TH/MM3 (1.0-4.8); MEAN CELL VOLUME 97.5 FL (80.0-100.0); MEAN CORPUSCULAR HEMOGLOBIN 32.8 PG (27.0-34.0); MEAN CORPUSCULAR HGB CONC 33.7 % (32.0-36.0); MONO % 9.9 % (0.0-8.0); NEUT % 77.1 % (16.0-70.0); PLATELET COUNT 261 TH/MM3 (150-450); RED BLOOD COUNT 3.97 MIL/MM3 (4.00-5.30); RED CELL DISTRIBUTION WIDTH 17.3 % (11.6-17.2)
[2017-03-09 12:35] LABS: ALKALINE PHOSPHATASE 204 U/L (45-117); TOTAL BILIRUBIN ADULT 0.5 MG/DL (0.2-1.0)
[2017-03-09] MEDS: SODIUM CHLORIDE 23.4% INJ 154 MEQ in DEXTROSE 10% INJ 1,000 ML IV SCH (15:00)
[2017-03-09] MEDS: WARFARIN SOD 2.5 MG TAB PO SCH (16:08)
[2017-03-09] MEDS: ACETAMINOPHEN 325 MG TAB PO PRN (18:02)
[2017-03-09] MEDS: PRAVASTATIN SOD 40 MG TAB PO SCH (21:24)
[2017-03-09 23:09] LABS: ANION GAP 10 MEQ/L (5-15); BICARBONATE 25.4 MEQ/L (21.0-32.0); BLOOD UREA NITROGEN 51 MG/DL (7-18); CHLORIDE 99 MEQ/L (98-107); GLOMERULAR FILTRATION RATE 44 ML/MIN (>89); MAGNESIUM 1.8 MG/DL (1.5-2.5); POTASSIUM 5.4 MEQ/L (3.5-5.1); SODIUM (NA) 134 MEQ/L (136-145)
[2017-03-09 23:10] LABS: ALT (GPT) 31 U/L (10-53); AST (GOT) 56 U/L (15-37)
--- NOTE | 2017-03-09 23:52 | HHI.NPPN ---
Subjective History of Present Illness 76-year-old female with past medical history of atrial fibrillation, diabetes mellitus, congestive heart failure, hyperlipidemia, history of mitral wall replacement in October 2016 who came to the hospital with complaint of shortness of breath and palpitation. Additional Remarks Patient is alert, feeling better, moved to [facility] for recurrent Hypoglycemia. Review of Systems General Constitutional: Fatigue Cardiovascular Cardiac: Edema, EDWARDS Objective Data Data 03/08/17 03/09/17 19:00 07:00 Intake Total 620 ml 240 ml Balance 620 ml 240 ml Intake Oral 620 ml 240 ml # Voids 2 3 # Bowel Movements 2 0 Vital Signs Date Time Temp Pulse Resp B/P Pulse Ox O2 Delivery O2 Flow Rate FiO2 03/09/17 22:00 88 03/09/17 20:00 96 03/09/17 19:02 20 03/09/17 18:05 90 03/09/17 17:00 95 03/09/17 16:02 88 03/09/17 15:00 98.0 80 18 99/54 100 03/09/17 15:00 83 03/09/17 14:00 84 03/09/17 13:00 83 03/09/17 12:00 84 03/09/17 11:00 80 03/09/17 11:00 97.9 80 18 161/80 100 03/09/17 10:00 82 03/09/17 09:00 83 03/09/17 08:00 86 03/09/17 08:00 98.0 72 18 122/103 98 03/09/17 07:00 79 03/09/17 05:45 97.5 74 20 129/77 97 03/09/17 00:08 97.2 70 24 94/63 100 -: 03/09/17 1140 03/09/17 2220 Physical Exam General Appearance: No Acute Distress, Comfortable Eyes Eye Exam: Pupils Equal Throat Throat Exam: Oral Mucosa [place] & Moist Pulmonary Resp Exam: Breath Sounds Equal, No Distress, Rhonchi, Decreased Bases Cardiology CV Exam: Regular Gastrointestinal/Abdomen GI Exam: Soft, Non-Tender, Bowel Sounds Present Extremeties Extremities Exam: Moderate Edema, Pitting Edema Neurologic Neuro Exam: Alert, Awake, Oriented Psychiatric Psych Exam: Appropriate Responses Assessment/Plan Assessment Summary: FRANCES/Acute Renal Failure Problem List: (1) CHF (congestive heart failure), NYHA class III (2) Hypertension (3) Diabetes mellitus (4) Atrial fibrillation with RVR (5) Combined systolic and diastolic congestive heart failure (6) S/P MVR (mitral valve replacement) (7) Acute kidney injury Plan Patient is getting IVF due to recurrent Hypoglycemia. BP is stable. On Lasix and has adequate UO. There is further improvement in the Creatinine. BP is stable and HR controlled. Renal U/S noted. Leg edema is better, continue Lasix, follow the urine out put and BMP. K is slightly elevated, not on supplement, follow K level. Problem Qualifiers (1) Hypertension: Qualified Code: I10 - Essential hypertension (2) Diabetes mellitus: John Duran MD Mar 09, 2017 23:52
[2017-03-10] VITALS (13 sets, daily range): BP systolic 102–115; BP diastolic 54–67; PULSE 70–90; RESP 18–24; TEMP 97.4–98.8; O2SAT 94–100
[2017-03-10] MEDS: LEVOTHYROXINE SODIUM 75 MCG TAB PO SCH (04:28)
[2017-03-10 05:11] LABS: MEAN CELL VOLUME 98.6 FL (80.0-100.0); MEAN CORPUSCULAR HGB CONC 31.5 % (32.0-36.0); PLATELET COUNT 212 TH/MM3 (150-450); RED BLOOD COUNT 3.95 MIL/MM3 (4.00-5.30); RED CELL DISTRIBUTION WIDTH 17.1 % (11.6-17.2); REVIEW FLAG FINAL; WHITE BLOOD COUNT 9.4 TH/MM3 (4.0-11.0)
[2017-03-10 05:32] LABS: INTERNATIONAL NORMALIZED RATIO 1.6 RATIO; PROTHROMBIN TIME - PATIENT 18.1 SEC (9.8-11.6)
[2017-03-10 05:37] LABS: MAGNESIUM 1.7 MG/DL (1.5-2.5); POTASSIUM 5.1 MEQ/L (3.5-5.1)
[2017-03-10 06:50] LABS: APTT (PATIENT) 40.2 SEC (24.3-30.1)
[2017-03-10] MEDS: POTASSIUM CHLORIDE 10 MEQ CONTROLLED RELEASE TAB PO SCH (08:04)
[2017-03-10] MEDS: DOCUSATE SODIUM 50 MG/SENNA 8.6 MG TAB PO SCH ×2 (08:05→19:59)
[2017-03-10] MEDS: SODIUM CHLORIDE 0.9% FLUSH 10 ML FLUSH IV FLUSH SCH ×2 (09:00→20:11)
[2017-03-10] MEDS: DIGOXIN 0.125 MG TAB PO SCH (09:04)
[2017-03-10] MEDS: METOPROLOL TARTRATE 25 MG TAB PO SCH ×2 (09:04→20:03)
[2017-03-10] MEDS: predniSONE 10 MG TAB PO SCH (09:04)
[2017-03-10] MEDS: ASPIRIN EC 81 MG TABEC PO SCH (09:04)
[2017-03-10] MEDS: DILTIAZEM-CD 120 MG CAP ER PO SCH (09:04)
[2017-03-10] MEDS: CARVEDILOL 3.125 MG TAB PO SCH ×2 (09:04→19:58)
[2017-03-10] MEDS: AMIODARONE 200 MG TAB PO SCH (09:04)
[2017-03-10] MEDS: FUROSEMIDE 40 MG TAB PO SCH ×2 (09:09→20:03)
[2017-03-10] MEDS: SODIUM CHLORIDE 23.4% INJ 154 MEQ in DEXTROSE 10% INJ 1,000 ML IV SCH (09:28)
--- NOTE | 2017-03-10 11:11 | HHI.PR ---
Subjective Remarks The pt was feeling better. She has been tolerating a diet. She does endorse left leg and heel pain. She has been having bowel movements. Discussed with nursing at the bedside. Objective Vitals Vital Signs Date Time Temp Pulse Resp B/P Pulse Ox O2 Delivery O2 Flow Rate FiO2 03/10/17 06:00 74 03/10/17 04:00 73 03/10/17 04:00 98.8 73 24 115/59 100 03/10/17 02:00 76 03/10/17 01:26 97 Nasal Cannula 3.00 03/10/17 00:00 98.2 82 24 113/59 98 03/10/17 00:00 84 03/09/17 22:00 88 03/09/17 20:00 98.6 92 22 115/71 93 03/09/17 20:00 96 03/09/17 19:02 20 03/09/17 18:05 90 03/09/17 17:00 95 03/09/17 16:20 97 Nasal Cannula 3.00 03/09/17 16:02 88 03/09/17 15:00 98.0 80 18 99/54 100 03/09/17 15:00 83 03/09/17 14:00 84 03/09/17 13:00 83 03/09/17 12:00 84 I/O 03/09/17 03/09/17 03/09/17 03/10/17 03/10/17 03/10/17 07:00 15:00 23:00 07:00 15:00 23:00 Intake Total 240 ml 1451 ml 648 ml Balance 240 ml 1451 ml 648 ml Intake Oral 240 ml 668 ml 224 ml IV Total 783 ml 424 ml # Voids 3 6 2 # Bowel Movements 0 2 0 Result Diagram: 03/10/17 0420 03/10/17 0420 Imaging Last Impressions Renal Ultrasound 03/06/17 0000 Signed Impressions: Service Date/Time: Monday, March 06, 2017 13:52 - CONCLUSION: 1. No obstructive uropathy or other acute renal abnormality. Parenchymal echogenicity within normal limits. 2. Small, benign-appearing bilateral cysts as above. 3. Right pleural effusion and questionable small ascites. Hardik Lynne MD Chest X-Ray 03/04/17 1134 Signed Impressions: Service Date/Time: February 11:44 - CONCLUSION: Linear non-consolidative infiltrates or scarring in the lateral right mid and lower lung. Roshan Ward MD Objective Remarks GENERAL: This is a well-nourished, well-developed patient, in no apparent distress. SKIN: Small sore on left lateral leg with a blister component, tender to palpation. CARDIOVASCULAR: Regular rate and irregular rhythm without murmurs, gallops, or rubs. RESPIRATORY: Clear to auscultation. Breath sounds equal bilaterally. No wheezes , rales, or rhonchi. GASTROINTESTINAL: Abdomen soft, non-tender, nondistended. GI: Normoactive bowel sounds, nontender. MUSCULOSKELETAL: Extremities with trace edema. NEURO: Alert & Oriented x4 to person, place, time, situation. Moves all ext x4. PSYCH: Mood and affect appropriate. Medications and IVs Current Medications Medications (Trade) Dose Ordered Sig/Amaris Route Start Time Stop Time Status Last Admin (Ecotrin Ec) 81 mg DAILY PO 03/05/17 09:00 03/10/17 09:04 (Coreg) 3.125 mg Q12HR PO 03/04/17 21:00 03/10/17 09:04 (Lanoxin) 0.125 mg DAILY PO 03/05/17 09:00 03/10/17 09:04 (Lasix) 40 mg BID PO 03/04/17 21:00 03/10/17 09:09 (Synthroid) 75 mcg DAILY@0600 PO 03/05/17 06:00 03/10/17 04:28 (KCl) 10 meq DAILY PO 03/05/17 09:00 03/09/17 08:23 Prednisone 10 mg 10 mg DAILY PO 03/05/17 09:00 03/10/17 09:04 (Cardizem Inj/NS Inj) 125 ml @ 0 mls/hr TITRATE IV 03/04/17 13:45 03/04/17 15:49 (NS Flush) 2 ml UNSCH PRN IV FLUSH 03/04/17 14:30 (NS Flush) 2 ml BID IV FLUSH 03/04/17 21:00 03/09/17 21:00 (Tylenol) 650 mg Q4H PRN PO 03/04/17 14:30 03/09/17 18:02 (Zofran Inj) 4 mg Q6H PRN IVP 03/04/17 14:30 (Restoril) 15 mg HS PRN PO 03/04/17 14:30 03/08/17 21:13 (Nusrat-Colace) 1 tab BID PO 03/04/17 21:00 03/08/17 21:16 (Milk Of Magnesia Liq) 30 ml Q12H PRN PO 03/04/17 14:30 (Senokot) 17.2 mg Q12H PRN PO 03/04/17 14:30 (Dulcolax Supp) 10 mg DAILY PRN RECTAL 03/04/17 14:30 (Lactulose Liq) 30 ml DAILY PRN PO 03/04/17 14:30 (D50w (Vial) Inj) 50 ml UNSCH PRN IV 03/04/17 14:45 03/09/17 00:57 (Glucagon Inj) 1 mg UNSCH PRN OTHER 03/04/17 14:45 (Pravachol) 40 mg HS PO 03/04/17 21:00 03/09/17 21:24 (Pill Splitter) 1 ea UNSCH PRN OTHER 03/04/17 16:00 (Heparin Inj) 5,000 units UNSCH PRN IV 03/05/17 00:15 Heparin Sodium (Porcine) 2500 units 2,500 units UNSCH PRN IV 03/05/17 00:15 (Heparin-D5W Inj) 250 ml @ 0 mls/hr TITRATE IV 03/04/17 18:15 03/09/17 04:12 Metoprolol Tartrate 25 mg 25 mg Q12HR PO 03/04/17 21:00 03/10/17 09:04 (Coumadin Consult Pharmacy) 0 ml @ 0 mls/hr UNSCH OTHER 03/05/17 07:45 (Cordarone) 200 mg DAILY PO 03/06/17 09:00 03/10/17 09:04 (Cardizem Cd) 120 mg DAILY PO 03/06/17 09:00 03/10/17 09:04 Warfarin Sodium 2.5 mg 2.5 mg DAILY@1600 PO 03/07/17 16:00 03/09/17 16:08 (Coumadin Consult Pharmacy) 0 ml @ 0 mls/hr UNSCH OTHER 03/08/17 11:45 (D50w (Vial) Inj) 50 ml UNSCH PRN IV 03/08/17 23:30 03/09/17 04:58 Glucagon 1 mg 1 mg STAT PRN IM 03/08/17 23:30 (Sodium Chloride 23.4% Inj/D10w Inj) 1,038.5 ml @ 50 mls/hr [id number] IV 03/09/17 15:00 03/11/17 08:32 03/10/17 09:28 (Coumadin) 1 mg ONCE PO 03/10/17 16:00 03/10/17 23:59 (Cleocin) 450 mg Q6HR PO 03/10/17 11:15 UNV (Lactinex) 1 tab TID PO 03/10/17 13:00 UNV A/P Assessment and Plan Mrs. Huerta is a 76-year-old female patient with a known history of atrial fibrillation, diabetes mellitus, congestive heart failure, hyperlipidemia, and mitral valve replacement in Oct 2016 who presented to the ED from Dr. Stubbs's office with complaints of shortness of breath and hypotension. Per patient, an EKG was performed and she was sent here. Atrial fibrillation with RVR, acute on chronic Given Cardizem 17 mg IV bolus in ED. Given another Cardizem IV 10 mg IV in ED. Cardizem drip was started. Appreciate cardiology consultation. EKG reviewed, irregular and paced rhythm, with left bundle branch block noted. Heart rate well controlled at this time. - Continue amiodarone and diltiazem titrated by cardiology. - Continuous cardiac telemetry. - continue Coumadin and heparin gtt. 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 Per records, patient underwent bi IVICD in 2010 with an EF of 20-20% at that time. ECHO with severely low EF of 20 %. Patient is with low BP. MARIE/ARB not started 2/2 low BP. BNP markedly elevated. - Continue home Coreg 3.125 mg PO q12hr, aspirin, digoxin. - On heparin drip bridge until therapeutic INR. Continue Coumadin. Recheck in a.m. Pharmacy assisting. - diuresis per nephrology. On D10 at a low rate for hypoglycemia. Acute kidney injury Suspect secondary to CHF exacerbation. Kidney indices slightly improving. Renal US noted. - follow up with nephrology. - Repeat BMP in am. - Avoid nephrotoxins. - continue diuresis. Type 2 diabetes mellitus/ Hypoglycemia Hemoglobin A1c 8.2%. On Levemir. Has been having bouts of severe hypoglycemia. - d/c Levemir. - follow glucose follow every 2 hours. - continue D10NS at 30 ml/hr. - regular diet. DVT prophylaxis: SCDs/TEDs, Heparin, bridge, Coumadin. Discharge Planning Awaiting clinical improvement. Magen Swanson DO Mar 10, 2017 11:11
[2017-03-10] MEDS ORDERED: CLINDAMYCIN 150 MG CAP PO SCH (12:00)
[2017-03-10] MEDS: LACTOBACILLUS ACIDOPHILUS TAB PO SCH ×2 (13:21→16:21)
[2017-03-10] MEDS ORDERED: Vancomycin Consult Pharmacy 1 EA OTHER SCH (15:00)
[2017-03-10] MEDS: PIPERACIL-TAZO 4.5 GM PREMIX 100 ML IV SCH ×2 (15:11→20:11)
--- NOTE | 2017-03-10 15:24 | PD.WCN.NOT ---
Wound Consult Description: Patient seen on [address] [place] [address] for wound management of L leg and buttocks. L anterior steiner assessed with full thickness wound that presents with ~60% red non granulation tissue and ~40% yellow tissue. Small deflated intact bulla noted at 12 o'clock and 6 o'clock. Cleansed wound with normal saline .Periwound noted with erythema extending ~0.2 cm out from wound bed. Wound measurements are as follows: 3.4 x 1.6 x 0.1.Wound culture obtained. Applied Xeroform in single layer just over wound bed and covered with dry 4x4 gauze, secured with rolled gauze and tape. Patient has intact skin with erythema and tenderness to L medial ankle measuring ~6x ~10. Outlined erythema with marker and left open to air. Turned patient to R side with assistance of MICHAEL Chan [facility], and creative services writer to reveal pressure injury to coccyx that is unstageable. Wound presents with ~60% coverage of yellow slough and ~40% red non-granulation tissue. Cleansed wound with normal saline.Wound measurements are as follows: 1.2 x 1 x slough. Skin prep applied to periwound and left open to air. Patient positioned on back and noted small erythematous and purple discolored area to L groin. Small amount of yellow cloudy drainage seen oozing from area. Cleansed L groin with normal saline. Wound erupted with heavy sero-purulent drainage. Wound drainage continued for a few seconds before subsiding. L groin wound is now present measuring 0.4 x 1.5x ~1 now with a minimal mix of pus and sanguinous drainage. Wound culture obtained.Loosely packed wound with iodoform 1 /4 inch packing strip. Applied skin prep to periwound before applying bordered gauze dressing . Communicated with: MICHAEL Viveros [facility] and Doctor Sky Recommendation: Recommend to cleanse wound to L anterior steiner with normal saline and apply Xeroform in single layer just over wound bed and cover with dry 4x4 gauze and secure with rolled gauze and tape.Please change dressing every other day or as needed if saturated or dislodged. Please cleanse Coccyx wound with normal saline only. Apply gulshan thick coverage of Santyl ointment to wound bed. Apply skin prep to periwound before applying bordered gauze dressing in place. Please change dressing daily. Cleanse wound to L groin with normal saline. Loosely pack wound with 1/2 inch iodoform gauze. Apply skin prep to periwound before applying bordered gauze dressing. Change daily or PRN if saturated or dislodged until seen by cardiology. Tosha Huff [facility] Mar 10, 2017 15:24
[2017-03-10] MEDS ORDERED: WARFARIN SOD 1 MG TAB PO SCH (16:00)
[2017-03-10] MEDS: WARFARIN SOD 2.5 MG TAB PO SCH (16:21)
[2017-03-10] MEDS: INSULIN ASPART SUPPLEMENTAL SCALE SQ SCH ×2 (16:25→20:05)
--- NOTE | 2017-03-10 16:39 | HHI.NPPN ---
Subjective History of Present Illness 76-year-old female with past medical history of atrial fibrillation, diabetes mellitus, congestive heart failure, hyperlipidemia, history of mitral wall replacement in October 2016 who came to the hospital with complaint of shortness of breath and palpitation. Additional Remarks Patient is alert, feeling better, started eating, still BS is labile. Review of Systems General Constitutional: Fatigue Cardiovascular Cardiac: Edema, EDWARDS Objective Data Data 03/09/17 03/10/17 19:00 07:00 Intake Total 689 ml 1410 ml Balance 689 ml 1410 ml Intake Oral 240 ml 652 ml IV Total 449 ml 758 ml # Voids 3 5 # Bowel Movements 2 0 Vital Signs Date Time Temp Pulse Resp B/P Pulse Ox O2 Delivery O2 Flow Rate FiO2 03/10/17 16:00 98.7 75 19 104/54 95 03/10/17 16:00 75 03/10/17 14:00 74 03/10/17 12:00 97.4 72 18 102/58 97 03/10/17 12:00 72 03/10/17 10:00 90 03/10/17 08:00 81 03/10/17 08:00 97.7 81 23 108/60 100 03/10/17 06:00 74 03/10/17 04:00 73 03/10/17 04:00 98.8 73 24 115/59 100 03/10/17 02:00 76 03/10/17 01:26 97 Nasal Cannula 3.00 03/10/17 00:00 98.2 82 24 113/59 98 03/10/17 00:00 84 03/09/17 22:00 88 03/09/17 20:00 98.6 92 22 115/71 93 03/09/17 20:00 96 03/09/17 19:02 20 03/09/17 18:05 90 03/09/17 17:00 95 -: 03/10/17 0420 03/10/17 0420 Microbiology 03/10/17 Gram Stain, Received Pending 03/10/17 Wound Culture, Received Pending 03/10/17 Gram Stain, Received Pending 03/10/17 Wound Culture, Received Pending Physical Exam General Appearance: No Acute Distress, Comfortable Eyes Eye Exam: Pupils Equal Throat Throat Exam: Oral Mucosa [place] & Moist Pulmonary Resp Exam: Breath Sounds Equal, No Distress, Rhonchi, Decreased Bases Cardiology CV Exam: Regular Gastrointestinal/Abdomen GI Exam: Soft, Non-Tender, Bowel Sounds Present Extremeties Extremities Exam: Moderate Edema, Pitting Edema Neurologic Neuro Exam: Alert, Awake, Oriented Psychiatric Psych Exam: Appropriate Responses Assessment/Plan Assessment Summary: FRANCES/Acute Renal Failure Problem List: (1) CHF (congestive heart failure), NYHA class III (2) Hypertension (3) Diabetes mellitus (4) Atrial fibrillation with RVR (5) Combined systolic and diastolic congestive heart failure (6) S/P MVR (mitral valve replacement) (7) Acute kidney injury Plan Patient is getting IVF due to recurrent Hypoglycemia. BP is stable. On Lasix and has adequate UO. There is further improvement in the Creatinine. BP is stable and HR controlled. Renal U/S noted. Leg edema is better, continue Lasix, Creatinine improve and K is normal. On insulin, follow BS. Problem Qualifiers (1) Hypertension: Qualified Code: I10 - Essential hypertension (2) Diabetes mellitus: John Duran MD Mar 10, 2017 16:39
[2017-03-10] MEDS: VANCOMYCIN INJ 1,250 MG in SODIUM CHLOR 0.9% 250 ML INJ 250 ML IV SCH (17:30)
--- NOTE | 2017-03-10 17:45 | RADRPT ---
EXAM DATE/TIME: 03/10/2017 16:34 [place] COMPARISON: US KIDNEY/RENAL/BLADDER, March 06, 2017, 13:52. INDICATIONS : Abscess. MEDICAL HISTORY : Congestive heart failure. Hypercholesterolemia. Hypertension. Bilateral glaucoma. Hearing loss. Antic oagulant therapy, Coumadin. Incontinence. Diabetes. SURGICAL HISTORY : Hysterectomy. Mitral valve replacement. Internal defibrillator. Left cataract removal. ENCOUNTER: Initial ACUITY: 1 day PAIN SCORE: 0/10 LOCATION: Left groin. AREA EVALUATED: Left groin. FINDINGS: The exam demonstrates an ill-defined area of decreased echogenicity in the left groin possibly repres enting a small phlegmon. I do not see a discrete drainable abscess. CONCLUSION: 1. Small area decreased echogenicity in the left groin possibly representing phlegmon versus scar tis noni. No definite well organized abscess cavity is seen. If symptoms persist, CT imaging could be perf ormed. Mak Kimbrough MD on March 10, 2017 at 17:40 Board Certified Radiologist. This report was verified electronically.
[2017-03-10] MEDS: PRAVASTATIN SOD 40 MG TAB PO SCH (20:03)
[2017-03-10] MEDS: HEPARIN-D5W INJ 250 ML IV SCH (20:05)
[2017-03-11] VITALS (13 sets, daily range): BP systolic 92–118; BP diastolic 53–58; PULSE 67–98; RESP 14–33; TEMP 97.5–98.7; O2SAT 93–99
[2017-03-11] MEDS: PIPERACIL-TAZO 4.5 GM PREMIX 100 ML IV SCH ×2 (03:21→10:50)
[2017-03-11 04:26] LABS: HEMATOCRIT 38.4 % (35.0-46.0); MEAN CELL VOLUME 97.2 FL (80.0-100.0); MEAN CORPUSCULAR HEMOGLOBIN 31.9 PG (27.0-34.0); MEAN CORPUSCULAR HGB CONC 32.8 % (32.0-36.0); PLATELET COUNT 235 TH/MM3 (150-450); RED BLOOD COUNT 3.95 MIL/MM3 (4.00-5.30); RED CELL DISTRIBUTION WIDTH 16.5 % (11.6-17.2); REVIEW FLAG FINAL; WHITE BLOOD COUNT 11.3 TH/MM3 (4.0-11.0)
[2017-03-11 05:15] LABS: APTT (PATIENT) 46.6 SEC (24.3-30.1); INTERNATIONAL NORMALIZED RATIO 1.9 RATIO; PROTHROMBIN TIME - PATIENT 22.1 SEC (9.8-11.6)
[2017-03-11] MEDS: LEVOTHYROXINE SODIUM 75 MCG TAB PO SCH (05:43)
[2017-03-11 05:45] LABS: BICARBONATE 30.6 MEQ/L (21.0-32.0); MAGNESIUM 1.7 MG/DL (1.5-2.5); POTASSIUM 5.2 MEQ/L (3.5-5.1)
[2017-03-11] MEDS: INSULIN ASPART SUPPLEMENTAL SCALE SQ SCH ×4 (06:19→20:15)
[2017-03-11] MEDS: DOCUSATE SODIUM 50 MG/SENNA 8.6 MG TAB PO SCH ×2 (09:00→19:54)
[2017-03-11] MEDS: METOPROLOL TARTRATE 25 MG TAB PO SCH ×2 (09:00→20:00)
[2017-03-11] MEDS: POTASSIUM CHLORIDE 10 MEQ CONTROLLED RELEASE TAB PO SCH (09:00)
[2017-03-11] MEDS: CARVEDILOL 3.125 MG TAB PO SCH ×2 (09:00→20:00)
--- NOTE | 2017-03-11 10:29 | HHI.PR ---
Subjective Remarks The patient said that a new infection was found. She said otherwise she was feeling well. She was resting in bed comfortably. She has been eating without difficulty. Discussed with nursing at the bedside. Objective Vitals Vital Signs Date Time Temp Pulse Resp B/P Pulse Ox O2 Delivery O2 Flow Rate FiO2 03/11/17 08:57 94 03/11/17 06:00 93 03/11/17 04:00 80 03/11/17 04:00 97.7 80 14 92/53 94 03/11/17 02:00 84 03/11/17 00:00 67 03/11/17 00:00 98.2 67 16 107/53 94 03/10/17 22:00 70 03/10/17 20:00 75 03/10/17 20:00 98.4 76 20 107/67 94 03/10/17 18:00 70 03/10/17 16:00 98.7 75 19 104/54 95 03/10/17 16:00 75 03/10/17 14:00 74 03/10/17 12:00 97.4 72 18 102/58 97 03/10/17 12:00 72 I/O 03/10/17 03/10/17 03/10/17 03/11/17 03/11/17 03/11/17 07:00 15:00 23:00 07:00 15:00 23:00 Intake Total 648 ml 1778 ml 612 ml 876 ml Balance 648 ml 1778 ml 612 ml 876 ml Intake Oral 224 ml 1440 ml 5 ml 600 ml IV Total 424 ml 338 ml 607 ml 276 ml # Voids 2 3 4 4 # Bowel Movements 0 1 1 1 Result Diagram: 03/11/17 0409 03/11/17 0426 Imaging Last Impressions Soft Tissue Ultrasound 03/10/17 0000 Signed Impressions: Service Date/Time: Friday, March 10, 2017 16:34 - CONCLUSION: 1. Small area decreased echogenicity in the left groin possibly representing phlegmon versus scar tissue. No definite well organized abscess cavity is seen. If symptoms persist, CT imaging could be performed. Mak Kimbrough MD Renal Ultrasound 03/06/17 0000 Signed Impressions: Service Date/Time: Monday, March 06, 2017 13:52 - CONCLUSION: 1. No obstructive uropathy or other acute renal abnormality. Parenchymal echogenicity within normal limits. 2. Small, benign-appearing bilateral cysts as above. 3. Right pleural effusion and questionable small ascites. Hardik Lynne MD Chest X-Ray 03/04/17 1134 Signed Impressions: Service Date/Time: February 11:44 - CONCLUSION: Linear non-consolidative infiltrates or scarring in the lateral right mid and lower lung. Roshan Ward MD Objective Remarks GENERAL: This is a well-nourished, well-developed patient, in no apparent distress. SKIN: Small sore on left lateral leg with a blister component, tender to palpation. Erythema spreading from the area. Abscess at left groin with expressible fluid. CARDIOVASCULAR: Regular rate and irregular rhythm without murmurs, gallops, or rubs. RESPIRATORY: Clear to auscultation. Breath sounds equal bilaterally. No wheezes , rales, or rhonchi. GASTROINTESTINAL: Abdomen soft, non-tender, nondistended. GI: Normoactive bowel sounds, nontender. MUSCULOSKELETAL: Extremities with trace edema. NEURO: Alert & Oriented x4 to person, place, time, situation. Moves all ext x4. PSYCH: Mood and affect appropriate. Medications and IVs Current Medications Medications (Trade) Dose Ordered Sig/Amaris Route Start Time Stop Time Status Last Admin (Ecotrin Ec) 81 mg DAILY PO 03/05/17 09:00 03/10/17 09:04 (Coreg) 3.125 mg Q12HR PO 03/04/17 21:00 03/10/17 09:04 (Lanoxin) 0.125 mg DAILY PO 03/05/17 09:00 03/10/17 09:04 (Lasix) 40 mg BID PO 03/04/17 21:00 03/10/17 20:03 (Synthroid) 75 mcg DAILY@0600 PO 03/05/17 06:00 03/11/17 05:43 (KCl) 10 meq DAILY PO 03/05/17 09:00 03/09/17 08:23 Prednisone 10 mg 10 mg DAILY PO 03/05/17 09:00 03/10/17 09:04 (Cardizem Inj/NS Inj) 125 ml @ 0 mls/hr TITRATE IV 03/04/17 13:45 03/04/17 15:49 (NS Flush) 2 ml UNSCH PRN IV FLUSH 03/04/17 14:30 (NS Flush) 2 ml BID IV FLUSH 03/04/17 21:00 03/10/17 20:11 (Tylenol) 650 mg Q4H PRN PO 03/04/17 14:30 03/09/17 18:02 (Zofran Inj) 4 mg Q6H PRN IVP 03/04/17 14:30 (Restoril) 15 mg HS PRN PO 03/04/17 14:30 03/08/17 21:13 (Nusrat-Colace) 1 tab BID PO 03/04/17 21:00 03/08/17 21:16 (Milk Of Magnesia Liq) 30 ml Q12H PRN PO 03/04/17 14:30 (Senokot) 17.2 mg Q12H PRN PO 03/04/17 14:30 (Dulcolax Supp) 10 mg DAILY PRN RECTAL 03/04/17 14:30 (Lactulose Liq) 30 ml DAILY PRN PO 03/04/17 14:30 (D50w (Vial) Inj) 50 ml UNSCH PRN IV 03/04/17 14:45 03/09/17 00:57 (Glucagon Inj) 1 mg UNSCH PRN OTHER 03/04/17 14:45 (Pravachol) 40 mg HS PO 03/04/17 21:00 03/10/17 20:03 (Pill Splitter) 1 ea UNSCH PRN OTHER 03/04/17 16:00 (Heparin Inj) 5,000 units UNSCH PRN IV 03/05/17 00:15 Heparin Sodium (Porcine) 2500 units 2,500 units UNSCH PRN IV 03/05/17 00:15 (Heparin-D5W Inj) 250 ml @ 0 mls/hr TITRATE IV 03/04/17 18:15 03/10/17 20:05 Metoprolol Tartrate 25 mg 25 mg Q12HR PO 03/04/17 21:00 03/10/17 20:03 (Coumadin Consult Pharmacy) 0 ml @ 0 mls/hr UNSCH OTHER 03/05/17 07:45 (Cordarone) 200 mg DAILY PO 03/06/17 09:00 03/10/17 09:04 (Cardizem Cd) 120 mg DAILY PO 03/06/17 09:00 03/10/17 09:04 Warfarin Sodium 2.5 mg 2.5 mg DAILY@1600 PO 03/07/17 16:00 03/10/17 16:21 (Coumadin Consult Pharmacy) 0 ml @ 0 mls/hr UNSCH OTHER 03/08/17 11:45 (D50w (Vial) Inj) 50 ml UNSCH PRN IV 03/08/17 23:30 03/09/17 04:58 (Glucagon Inj) 1 mg STAT PRN IM 03/08/17 23:30 Lactobacillus Acidophilus 1 tab 1 tab TID PO 03/10/17 13:00 03/10/17 16:21 Pharmacy Profile Note 0 ml @ 0 mls/hr UNSCH OTHER 03/10/17 15:00 Vancomycin HCl 1250 mg/Sodium Chloride 262.5 ml @ 262.5 mls/ hr Q24H IV 03/10/17 16:00 03/10/17 17:30 (Zosyn 4.5 Gm Premix) 100 ml @ 200 mls/hr Q6H IV 03/10/17 15:00 03/11/17 03:21 Miscellaneous Information SPECIFIC LAB TO BE [facility]... ONCE ONCE .XX 03/13/17 15:45 03/13/17 15:46 A/P Assessment and Plan Mrs. Huerta is a 76-year-old female patient with a known history of atrial fibrillation, diabetes mellitus, congestive heart failure, hyperlipidemia, and mitral valve replacement in Oct 2016 who presented to the ED from Dr. Stubbs's office with complaints of shortness of breath and hypotension. Per patient, an EKG was performed and she was sent here. Atrial fibrillation with RVR, acute on chronic Given Cardizem 17 mg IV bolus in ED. Given another Cardizem IV 10 mg IV in ED. Cardizem drip was started. Appreciate cardiology consultation. EKG reviewed, irregular and paced rhythm, with left bundle branch block noted. Heart rate well controlled at this time. - Continue amiodarone and diltiazem titrated by cardiology. - Continuous cardiac telemetry. - continue Coumadin and heparin gtt. INR 1.9 03/11. 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 Per records, patient underwent bi IVICD in 2010 with an EF of 20-20% at that time. ECHO with severely low EF of 20 %. Patient is with low BP. MARIE/ARB not started 2/2 low BP. BNP markedly elevated. - Continue home Coreg 3.125 mg PO q12hr, aspirin, digoxin. - On heparin drip bridge until therapeutic INR. Continue Coumadin. Recheck in a.m. Pharmacy assisting. - diuresis per nephrology. Acute kidney injury Suspect secondary to CHF exacerbation. Kidney indices slightly improving. Renal US noted. - follow up with nephrology. - Repeat BMP in am. - Avoid nephrotoxins. - continue diuresis. Type 2 diabetes mellitus/ Hypoglycemia Hemoglobin A1c 8.2%. On Levemir. Has been having bouts of severe hypoglycemia. Stabilizing. - d/c Levemir. - follow glucose follow every 2 hours. - d/c D10. - insulin sliding scale, low dose. Left groin abscess/ Left leg cellulitis The pt had an incision from her MVR in October that appears infected. Significant pus noted in the wound. US: Small area of decreased echogenicity in the left groin possibly representing phlegmon versus scar tissue; No definite well organized abscess cavity is seen. The pt also has a skin tear on the left leg that is becoming erythematous. Wound care recs appreciated. - wound care per wound care nurse. - ID consult requested. - continue vancomycin and Zosyn. - follow wound cultures. DVT prophylaxis: SCDs/TEDs, Heparin, bridge, Coumadin. Discharge Planning Awaiting clinical improvement. Magen Swanson DO Mar 11, 2017 10:29
[2017-03-11] MEDS: predniSONE 10 MG TAB PO SCH (10:50)
[2017-03-11] MEDS: LACTOBACILLUS ACIDOPHILUS TAB PO SCH ×3 (10:50→17:47)
[2017-03-11] MEDS: FUROSEMIDE 40 MG TAB PO SCH ×2 (10:50→19:55)
[2017-03-11] MEDS: ASPIRIN EC 81 MG TABEC PO SCH (10:51)
[2017-03-11] MEDS: DIGOXIN 0.125 MG TAB PO SCH (10:51)
[2017-03-11] MEDS: SODIUM CHLORIDE 0.9% FLUSH 10 ML FLUSH IV FLUSH SCH ×2 (10:52→19:55)
[2017-03-11] MEDS: DILTIAZEM-CD 120 MG CAP ER PO SCH (10:58)
[2017-03-11] MEDS: AMIODARONE 200 MG TAB PO SCH (10:58)
--- NOTE | 2017-03-11 12:29 | HHI.NPPN ---
Subjective History of Present Illness 76-year-old female with past medical history of atrial fibrillation, diabetes mellitus, congestive heart failure, hyperlipidemia, history of mitral wall replacement in October 2016 who came to the hospital with complaint of shortness of breath and palpitation. Additional Remarks Patient is alert,no SOB, eating better, no vomiting. Review of Systems General Constitutional: Fatigue Cardiovascular Cardiac: Edema, EDWARDS Objective Data Data 03/10/17 03/11/17 19:00 07:00 Intake Total 1783 ml 1483 ml Balance 1783 ml 1483 ml Intake Oral 1445 ml 600 ml IV Total 338 ml 883 ml # Voids 3 8 # Bowel Movements 1 2 Vital Signs Date Time Temp Pulse Resp B/P Pulse Ox O2 Delivery O2 Flow Rate FiO2 03/11/17 08:57 94 03/11/17 06:00 93 03/11/17 04:00 80 03/11/17 04:00 97.7 80 14 92/53 94 03/11/17 02:00 84 03/11/17 00:00 67 03/11/17 00:00 98.2 67 16 107/53 94 03/10/17 22:00 70 03/10/17 20:00 75 03/10/17 20:00 98.4 76 20 107/67 94 03/10/17 18:00 70 03/10/17 16:00 98.7 75 19 104/54 95 03/10/17 16:00 75 03/10/17 14:00 74 -: 03/11/17 0409 03/11/17 0426 Microbiology 03/10/17 Gram Stain - Final, Resulted 03/10/17 Wound Culture, Resulted Pending 03/10/17 Gram Stain - Final, Resulted 03/10/17 Wound Culture, Resulted Pending Physical Exam General Appearance: No Acute Distress, Comfortable Eyes Eye Exam: Pupils Equal Throat Throat Exam: Oral Mucosa [place] & Moist Pulmonary Resp Exam: Breath Sounds Equal, No Distress, Rhonchi, Decreased Bases Cardiology CV Exam: Regular Gastrointestinal/Abdomen GI Exam: Soft, Non-Tender, Bowel Sounds Present Extremeties Extremities Exam: Moderate Edema, Pitting Edema Neurologic Neuro Exam: Alert, Awake, Oriented Psychiatric Psych Exam: Appropriate Responses Assessment/Plan Assessment Summary: FRANCES/Acute Renal Failure Problem List: (1) CHF (congestive heart failure), NYHA class III (2) Hypertension (3) Diabetes mellitus (4) Atrial fibrillation with RVR (5) Combined systolic and diastolic congestive heart failure (6) S/P MVR (mitral valve replacement) (7) Acute kidney injury Plan Patient is getting IVF due to recurrent Hypoglycemia. BP is stable. On Lasix and has adequate UO. There is further improvement in the Creatinine. BP is stable and HR controlled. Renal U/S noted. Leg edema is better, continue Lasix, Creatinine is now 1.3, BS still labile. Follow Creatinine and K level. Problem Qualifiers (1) Hypertension: Qualified Code: I10 - Essential hypertension (2) Diabetes mellitus: John Duran MD Mar 11, 2017 12:29
[2017-03-11] MEDS: AMPICILLIN-SULBACTAM INJ 1,500 MG in SODIUM CHLORIDE 0.9% INJ 100 ML IV SCH ×3 (13:00→17:47)
[2017-03-11] MEDS: VANCOMYCIN INJ 1,250 MG in SODIUM CHLOR 0.9% 250 ML INJ 250 ML IV SCH (16:27)
[2017-03-11] MEDS: WARFARIN SOD 2.5 MG TAB PO SCH (16:28)
--- NOTE | 2017-03-11 16:55 | MB ---
cc: MANOJ MONGE MD DATE OF CONSULTATION 03/11/[address] Swanson REASON FOR CONSULTATION Left groin abscess from surgical site, left leg cellulitis. HISTORY OF PRESENT ILLNESS This is a 76-year-old white female who underwent mitral valve replacement via minimally invasive procedure with a 27 mosaic tissue valve on October 29, 2016. The patient presented to the emergency department on March 04 with new-onset atrial fibrillation and rapid ventricular response. She was admitted to the hospital for treatment. The patient also was noted to have acute kidney injury as well. She was noted to have some edema of the lower extremities and was noted to have redness of the left leg at the distal tibia on March 09. She was admitted to the hospital on 03/04. The patient also was noted to have some drainage at the left groin in the region where cannulation was performed. A culture was taken from the wound drainage and packing was placed into the wound. The gram stain from the wound has rare gram-positive cocci in pairs. A culture of the leg wound is pending. The gram stain from the leg wound showed rare white cells and no organisms. The patient is afebrile. She states that she feels cold but no ashvin chills. She also states that she feels tired. She has no other complaints. Her white count is 11.3. An ultrasound of the left groin showed small area of increased echogenicity possibly representing phlegmon versus scar tissue. No well-organized abscess cavity was seen. PAST MEDICAL HISTORY 1. Diabetes mellitus, 2. Hyperlipidemia, 3. Atrial fibrillation, 4. Mitral valve replacement October 2016 5. Cardiomyopathy 6. Hysterectomy, 7. Tonsillectomy 8. Biventricular cardiac defibrillator ALLERGIES NO KNOWN DRUG ALLERGIES. MEDICATIONS 1. Vancomycin. 2. Piperacillin/Tazobactam 3. Lactinex 4. Cordarone 5. Coumadin 6. Cardizem 7. Ecotrin 8. Digoxin. 9. Potassium. 10. Prednisone 10 mg p.o. daily. 11. Synthroid. 12. Coreg 13. Nusrat-Colace. 14. Pravachol. 15. Lopressor SOCIAL HISTORY No tobacco, no alcohol. No illicit drugs. FAMILY HISTORY Noncontributory. REVIEW OF SYSTEMS Negative on 10-point review. PHYSICAL EXAMINATION GENERAL: This is a well-developed female who is in no acute distress. She is awake, alert and oriented. VITAL SIGNS: Temperature 97.7, BP 92/53, heart rate 80, respirations 18. HEENT: Head is atraumatic. Extraocular movements grossly intact, pupils reactive to light. No icterus. Oropharynx has no visible lesions. NECK: Supple without adenopathy. LUNGS: Clear breath sounds HEART: Regular rate and rhythm without murmurs, rubs or gallops. ABDOMEN: Bowel sounds present, soft, nontender. RECTAL: Not performed. EXTREMITIES: The left groin has tenderness on palpation and there is a tiny opening which is packed with a thin piece of gauze dressing. There is drainage on the dressing. The left distal tibia has purplish patch of erythema anteriorly, which encompasses approximately half the circumference of the tibia anteriorly and there is another patch of pale discoloration of the skin with erythema just below that at patch. The area is extremely tender on palpation. Both lower extremities have 1+-2+ edema. SKIN: No diffuse rash. NEUROLOGIC: Nonfocal PSYCHIATRIC: The patient is calm and cooperative. LABORATORY DATA WBC 11.3, platelets 235, hemoglobin 12.6, creatinine 1.3 BUN 47, sodium 135. IMPRESSION 1. Left groin infection at wound where prior cannulation was performed for prior procedure. 2. Cellulitis of the left leg. Three cultures pending. RECOMMENDATIONS 1. Continue vancomycin 2. Begin Unasyn intravenous 3. Follow the cultures and stop Vancomycin if there is no MRSA on the culture of if bacteria is sensitive to Unasyn. Thank for this consultation. I will monitor the patient's progress and make further recommendations on followup if necessary. Manoj Monge MD FD/ /12:32 PM /4:38 PM OMEGA
[2017-03-11] MEDS: PRAVASTATIN SOD 40 MG TAB PO SCH (19:55)
[2017-03-12] VITALS (13 sets, daily range): BP systolic 94–126; BP diastolic 55–60; PULSE 70–100; RESP 16–29; TEMP 97.6–98.3; O2SAT 93–97
[2017-03-12] MEDS: AMPICILLIN-SULBACTAM INJ 1,500 MG in SODIUM CHLORIDE 0.9% INJ 100 ML IV SCH ×3 (00:22→13:52)
[2017-03-12] MEDS: LEVOTHYROXINE SODIUM 75 MCG TAB PO SCH (05:22)
[2017-03-12 05:47] LABS: HEMATOCRIT 38.1 % (35.0-46.0); MEAN CORPUSCULAR HEMOGLOBIN 31.6 PG (27.0-34.0); MEAN CORPUSCULAR HGB CONC 32.2 % (32.0-36.0); PLATELET COUNT 266 TH/MM3 (150-450); RED BLOOD COUNT 3.89 MIL/MM3 (4.00-5.30); RED CELL DISTRIBUTION WIDTH 16.5 % (11.6-17.2); REVIEW FLAG FINAL; WHITE BLOOD COUNT 9.7 TH/MM3 (4.0-11.0)
[2017-03-12 05:57] LABS: APTT (PATIENT) 50.1 SEC (24.3-30.1)
[2017-03-12 06:04] LABS: BICARBONATE 28.2 MEQ/L (21.0-32.0); MAGNESIUM 1.6 MG/DL (1.5-2.5)
[2017-03-12] MEDS: INSULIN ASPART SUPPLEMENTAL SCALE SQ SCH ×4 (06:46→21:00)
[2017-03-12] MEDS: DOCUSATE SODIUM 50 MG/SENNA 8.6 MG TAB PO SCH ×2 (09:00→21:00)
[2017-03-12] MEDS: SODIUM CHLORIDE 0.9% FLUSH 10 ML FLUSH IV FLUSH SCH ×2 (09:00→21:00)
[2017-03-12 09:42] LABS: INTERNATIONAL NORMALIZED RATIO 2.3 RATIO; PROTHROMBIN TIME - PATIENT 26.3 SEC (9.8-11.6)
[2017-03-12] MEDS: CARVEDILOL 3.125 MG TAB PO SCH ×2 (09:58→21:00)
[2017-03-12] MEDS: METOPROLOL TARTRATE 25 MG TAB PO SCH ×2 (09:58→21:00)
[2017-03-12] MEDS: LACTOBACILLUS ACIDOPHILUS TAB PO SCH ×3 (09:58→16:59)
[2017-03-12] MEDS: FUROSEMIDE 40 MG TAB PO SCH ×2 (09:58→23:59)
[2017-03-12] MEDS: predniSONE 10 MG TAB PO SCH (09:58)
[2017-03-12] MEDS: DILTIAZEM-CD 120 MG CAP ER PO SCH (09:58)
[2017-03-12] MEDS: ASPIRIN EC 81 MG TABEC PO SCH (09:58)
[2017-03-12] MEDS: AMIODARONE 200 MG TAB PO SCH (09:59)
[2017-03-12] MEDS: POTASSIUM CHLORIDE 10 MEQ CONTROLLED RELEASE TAB PO SCH (09:59)
[2017-03-12] MEDS: DIGOXIN 0.125 MG TAB PO SCH (09:59)
--- NOTE | 2017-03-12 13:54 | HHI.IDPN ---
Note Infectious Disease Note Patient says she feels okay. No distress. afebrile. Groin wound culture has staph aureus. Presented to the emergency department on March 04 with new-onset atrial fibrillation and rapid ventricular response. Noted to have erythema at the left leg and drainage from incision at the r. groin. PAST MEDICAL HISTORY 1. Diabetes mellitus, 2. Hyperlipidemia, 3. Atrial fibrillation, 4. Mitral valve replacement October 2016 5. Cardiomyopathy 6. Hysterectomy, 7. Tonsillectomy 8. Biventricular cardiac defibrillator ALLERGIES NO KNOWN DRUG ALLERGIES. MEDICATIONS 1. Vancomycin. 2. Piperacillin/Tazobactam OBJECTIVE: Vital Signs Date Time Temp Pulse Resp B/P Pulse Ox O2 Delivery O2 Flow Rate FiO2 03/12/17 12:00 98.3 92 27 94/55 94 03/12/17 12:00 92 03/12/17 10:00 100 03/12/17 08:40 93 21 03/12/17 08:00 98.3 93 27 125/60 96 03/12/17 08:00 92 03/12/17 07:00 94 Room Air 03/12/17 06:00 Room Air 2.00 03/12/17 04:00 97.8 93 22 126/56 95 03/12/17 00:00 97.6 90 22 116/57 95 03/11/17 21:23 93 03/11/17 20:00 97.5 93 24 97/54 93 03/11/17 19:29 Room Air 03/11/17 18:00 84 03/11/17 16:45 98 Room Air 03/11/17 16:45 98 Nasal Cannula 03/11/17 16:00 98.7 86 30 118/57 98 03/11/17 16:00 86 03/11/17 15:00 87 Nasal Cannula 2.00 03/11/17 14:00 97 Laboratory Tests Test 03/11/17 03/12/17 04:09 05:09 White Blood Count 11.3 TH/MM3 9.7 TH/MM3 Red Blood Count 3.95 MIL/MM3 3.89 MIL/MM3 Hemoglobin 12.6 GM/DL 12.3 GM/DL Hematocrit 38.4 % 38.1 % Mean Corpuscular Volume 97.2 FL 98.0 FL Mean Corpuscular Hemoglobin 31.9 PG 31.6 PG Mean Corpuscular Hemoglobin 32.8 % 32.2 % Concent Red Cell Distribution Width 16.5 % 16.5 % Platelet Count 235 TH/MM3 266 TH/MM3 Mean Platelet Volume 8.3 FL 8.2 FL Laboratory Tests Test 03/11/17 03/12/17 04:26 05:09 Sodium Level 135 MEQ/L 139 MEQ/L Potassium Level 5.2 MEQ/L 4.0 MEQ/L Chloride Level 98 MEQ/L 101 MEQ/L Carbon Dioxide Level 30.6 MEQ/L 28.2 MEQ/L Anion Gap 6 MEQ/L 10 MEQ/L Blood Urea Nitrogen 47 MG/DL 46 MG/DL Creatinine 1.30 MG/DL 1.22 MG/DL Estimat Glomerular Filtration 40 ML/MIN 43 ML/MIN Rate Random Glucose 122 MG/DL 96 MG/DL Calcium Level 8.4 MG/DL 8.3 MG/DL Magnesium Level 1.7 MG/DL 1.6 MG/DL Microbiology Date/Time Procedure Status Source Growth 03/10/17 14:30 Gram Stain - Final Complete Wound Leg 03/10/17 14:30 Wound Culture - Final Complete Staphylococcus Aureus 03/10/17 14:30 Gram Stain - Final Complete Wound Other 03/10/17 14:30 Wound Culture - Final Complete Staphylococcus Aureus PHYSICAL EXAMINATION GENERAL: No acute distress. Awake, alert and oriented. HEENT: No icterus. Oropharynx has no visible lesions. NECK: Supple without adenopathy. LUNGS: Clear breath sounds HEART: Regular rate and rhythm without murmurs, rubs or gallops. ABDOMEN: Bowel sounds present, soft, nontender. EXTREMITIES: The left groin has tenderness on palpation and little drainage on the dressing. The left distal tibia has purplish patch of erythema anteriorly, which encompasses approximately half the circumference of the tibia anteriorly and there is another patch of pale discoloration of the skin with erythema just below that at patch. No change. Both lower extremities have 1+-2+ edema. SKIN: No diffuse rash. NEUROLOGIC: Nonfocal PSYCHIATRIC: The patient is calm and cooperative. IMPRESSION 1. Left groin infection at wound where prior cannulation was performed for prior procedure. 2. Cellulitis of the left leg. Three cultures pending. RECOMMENDATIONS 1. Stop vancomycin 2. Stop Unasyn intravenous 3. Start Ancef IV. 4. Monitor the wound. Duane Monge MD Mar 12, 2017 13:54
[2017-03-12] MEDS: WARFARIN SOD 2.5 MG TAB PO SCH (14:49)
--- NOTE | 2017-03-12 15:34 | HHI.NPPN ---
Subjective History of Present Illness 76-year-old female with past medical history of atrial fibrillation, diabetes mellitus, congestive heart failure, hyperlipidemia, history of mitral wall replacement in October 2016 who came to the hospital with complaint of shortness of breath and palpitation. Additional Remarks Patient is alert,no SOB, eating better, no vomiting, clinically same. Review of Systems General Constitutional: Fatigue Cardiovascular Cardiac: Edema, EDWARDS Objective Data Data 03/11/17 03/12/17 19:00 07:00 Intake Total 545 ml 1010 ml Balance 545 ml 1010 ml Intake Oral 300 ml 240 ml IV Total 245 ml 770 ml # Voids 4 6 # Bowel Movements 1 6 Vital Signs Date Time Temp Pulse Resp B/P Pulse Ox O2 Delivery O2 Flow Rate FiO2 03/12/17 14:00 70 03/12/17 12:00 98.3 92 27 94/55 94 03/12/17 12:00 92 03/12/17 10:00 100 03/12/17 08:40 93 21 03/12/17 08:00 98.3 93 27 125/60 96 03/12/17 08:00 92 03/12/17 07:00 94 Room Air 03/12/17 06:00 Room Air 2.00 03/12/17 04:00 97.8 93 22 126/56 95 03/12/17 00:00 97.6 90 22 116/57 95 03/11/17 21:23 93 03/11/17 20:00 97.5 93 24 97/54 93 03/11/17 19:29 Room Air 03/11/17 18:00 84 03/11/17 16:45 98 Room Air 03/11/17 16:45 98 Nasal Cannula 03/11/17 16:00 98.7 86 30 118/57 98 03/11/17 16:00 86 -: 03/12/17 0509 03/12/17 0509 Physical Exam General Appearance: No Acute Distress, Comfortable Eyes Eye Exam: Pupils Equal Throat Throat Exam: Oral Mucosa [place] & Moist Pulmonary Resp Exam: Breath Sounds Equal, No Distress, Rhonchi, Decreased Bases Cardiology CV Exam: Regular Gastrointestinal/Abdomen GI Exam: Soft, Non-Tender, Bowel Sounds Present Extremeties Extremities Exam: Moderate Edema, Pitting Edema Neurologic Neuro Exam: Alert, Awake, Oriented Psychiatric Psych Exam: Appropriate Responses Assessment/Plan Assessment Summary: FRANCES/Acute Renal Failure Problem List: (1) CHF (congestive heart failure), NYHA class III (2) Hypertension (3) Diabetes mellitus (4) Atrial fibrillation with RVR (5) Combined systolic and diastolic congestive heart failure (6) S/P MVR (mitral valve replacement) (7) Acute kidney injury Plan Patient is getting IVF due to recurrent Hypoglycemia. BP is stable. On Lasix and has adequate UO. There is further improvement in the Creatinine. BP is stable and HR controlled. Renal U/S noted. Leg edema is better, continue Lasix, Creatinine is stable, she has chronic kidney disease. Follow urine out put and BMP. Problem Qualifiers (1) Hypertension: Qualified Code: I10 - Essential hypertension (2) Diabetes mellitus: John Duran MD Mar 12, 2017 15:34
--- NOTE | 2017-03-12 17:34 | HHI.PR ---
Subjective Remarks The patient was resting comfortably in bed. Family was at the bedside. The patient was breathing comfortably. She has been tolerating a diet. Discussed with nursing at the bedside. Objective Vitals Vital Signs Date Time Temp Pulse Resp B/P Pulse Ox O2 Delivery O2 Flow Rate FiO2 03/12/17 16:00 98.3 70 29 115/56 95 03/12/17 16:00 70 03/12/17 14:00 70 03/12/17 12:00 98.3 92 27 94/55 94 03/12/17 12:00 92 03/12/17 10:00 100 03/12/17 08:40 93 21 03/12/17 08:00 98.3 93 27 125/60 96 03/12/17 08:00 92 03/12/17 07:00 94 Room Air 03/12/17 06:00 Room Air 2.00 03/12/17 04:00 97.8 93 22 126/56 95 03/12/17 00:00 97.6 90 22 116/57 95 03/11/17 21:23 93 03/11/17 20:00 97.5 93 24 97/54 93 03/11/17 19:29 Room Air 03/11/17 18:00 84 I/O 03/11/17 03/11/17 03/11/17 03/12/17 03/12/17 03/12/17 07:00 15:00 23:00 07:00 15:00 23:00 Intake Total 876 ml 545 ml 773 ml 237 ml 844 ml Output Total 325 ml Balance 876 ml 545 ml 773 ml 237 ml 519 ml Intake Oral 600 ml 300 ml 240 ml 720 ml IV Total 276 ml 245 ml 533 ml 237 ml 124 ml Output Urine Total 325 ml # Voids 4 4 2 4 2 # Bowel Movements 1 1 2 4 2 Result Diagram: 03/12/17 0509 03/12/17 0509 Imaging Last Impressions Soft Tissue Ultrasound 03/10/17 0000 Signed Impressions: Service Date/Time: Friday, March 10, 2017 16:34 - CONCLUSION: 1. Small area decreased echogenicity in the left groin possibly representing phlegmon versus scar tissue. No definite well organized abscess cavity is seen. If symptoms persist, CT imaging could be performed. Mak Kimbrough MD Renal Ultrasound 03/06/17 0000 Signed Impressions: Service Date/Time: Monday, March 06, 2017 13:52 - CONCLUSION: 1. No obstructive uropathy or other acute renal abnormality. Parenchymal echogenicity within normal limits. 2. Small, benign-appearing bilateral cysts as above. 3. Right pleural effusion and questionable small ascites. Hardik Lynne MD Chest X-Ray 03/04/17 1134 Signed Impressions: Service Date/Time: February 11:44 - CONCLUSION: Linear non-consolidative infiltrates or scarring in the lateral right mid and lower lung. Roshan Ward MD Objective Remarks GENERAL: This is a well-nourished, well-developed patient, in no apparent distress. SKIN: Small sore on left lateral leg with a blister component, tender to palpation. Dermatitis of venous stasis on that extremity. Abscess at left groin with expressible fluid currently bandaged. CARDIOVASCULAR: Regular rate and irregular rhythm without murmurs, gallops, or rubs. RESPIRATORY: Clear to auscultation. Breath sounds equal bilaterally. No wheezes , rales, or rhonchi. GASTROINTESTINAL: Abdomen soft, non-tender, nondistended. Normoactive bowel sounds. MUSCULOSKELETAL: Extremities with trace edema. NEURO: Alert & Oriented x4 to person, place, time, situation. Moves all ext x4. PSYCH: Mood and affect appropriate. Medications and IVs Current Medications Medications (Trade) Dose Ordered Sig/Amaris Route Start Time Stop Time Status Last Admin (Ecotrin Ec) 81 mg DAILY PO 03/05/17 09:00 03/12/17 09:58 (Coreg) 3.125 mg Q12HR PO 03/04/17 21:00 03/12/17 09:58 (Lanoxin) 0.125 mg DAILY PO 03/05/17 09:00 03/12/17 09:59 (Lasix) 40 mg BID PO 03/04/17 21:00 03/12/17 09:58 (Synthroid) 75 mcg DAILY@0600 PO 03/05/17 06:00 03/12/17 05:22 (KCl) 10 meq DAILY PO 03/05/17 09:00 03/12/17 09:59 Prednisone 10 mg 10 mg DAILY PO 03/05/17 09:00 03/12/17 09:58 (Cardizem Inj/NS Inj) 125 ml @ 0 mls/hr TITRATE IV 03/04/17 13:45 03/04/17 15:49 (NS Flush) 2 ml UNSCH PRN IV FLUSH 03/04/17 14:30 (NS Flush) 2 ml BID IV FLUSH 03/04/17 21:00 03/11/17 19:55 (Tylenol) 650 mg Q4H PRN PO 03/04/17 14:30 03/09/17 18:02 (Zofran Inj) 4 mg Q6H PRN IVP 03/04/17 14:30 (Restoril) 15 mg HS PRN PO 03/04/17 14:30 03/08/17 21:13 (Nusrat-Colace) 1 tab BID PO 03/04/17 21:00 03/11/17 19:54 (Milk Of Magnesia Liq) 30 ml Q12H PRN PO 03/04/17 14:30 (Senokot) 17.2 mg Q12H PRN PO 03/04/17 14:30 (Dulcolax Supp) 10 mg DAILY PRN RECTAL 03/04/17 14:30 (Lactulose Liq) 30 ml DAILY PRN PO 03/04/17 14:30 (Glucagon Inj) 1 mg UNSCH PRN OTHER 03/04/17 14:45 (Pravachol) 40 mg HS PO 03/04/17 21:00 03/11/17 19:55 (Pill Splitter) 1 ea UNSCH PRN OTHER 03/04/17 16:00 (Heparin Inj) 5,000 units UNSCH PRN IV 03/05/17 00:15 (Heparin Inj) 2,500 units UNSCH PRN IV 03/05/17 00:15 Metoprolol Tartrate 25 mg 25 mg Q12HR PO 03/04/17 21:00 03/12/17 09:58 (Coumadin Consult Pharmacy) 0 ml @ 0 mls/hr UNSCH OTHER 03/05/17 07:45 (Cordarone) 200 mg DAILY PO 03/06/17 09:00 03/12/17 09:59 (Cardizem Cd) 120 mg DAILY PO 03/06/17 09:00 03/12/17 09:58 Warfarin Sodium 2.5 mg 2.5 mg DAILY@1600 PO 03/07/17 16:00 03/12/17 14:49 (Coumadin Consult Pharmacy) 0 ml @ 0 mls/hr UNSCH OTHER 03/08/17 11:45 (D50w (Vial) Inj) 50 ml UNSCH PRN IV 03/08/17 23:30 03/09/17 04:58 (Glucagon Inj) 1 mg STAT PRN IM 03/08/17 23:30 Lactobacillus Acidophilus 1 tab 1 tab TID PO 03/10/17 13:00 03/12/17 16:59 (Ancef Inj/NS Inj) 100 ml @ 200 mls/hr Q8H IV 03/12/17 14:00 03/12/17 14:49 A/P Assessment and Plan Mrs. Huerta is a 76-year-old female patient with a known history of atrial fibrillation, diabetes mellitus, congestive heart failure, hyperlipidemia, and mitral valve replacement in Oct 2016 who presented to the ED from Dr. Stubbs's office with complaints of shortness of breath and hypotension. Per patient, an EKG was performed and she was sent here. Atrial fibrillation with RVR, acute on chronic Given Cardizem 17 mg IV bolus in ED. Given another Cardizem IV 10 mg IV in ED. Cardizem drip was started. Appreciate cardiology consultation. EKG reviewed, irregular and paced rhythm, with left bundle branch block noted. Heart rate well controlled at this time. - Continue amiodarone and diltiazem titrated by cardiology. - Continuous cardiac telemetry. - continue Coumadin 2.3 03/12. Discontinue heparin drip. 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 Per records, patient underwent bi IVICD in 2010 with an EF of 20-20% at that time. ECHO with severely low EF of 20 %. Patient is with low BP. MARIE/ARB not started 2/2 low BP. BNP markedly elevated. - Continue home Coreg 3.125 mg PO q12hr, aspirin, digoxin. - Continue Coumadin. Pharmacy assisting. - diuresis per nephrology. Acute kidney injury Suspect secondary to CHF exacerbation. Kidney indices are improving. Renal US noted. - follow up with nephrology. - Avoid nephrotoxins. - continue diuresis. Type 2 diabetes mellitus/ Hypoglycemia Hemoglobin A1c 8.2%. On Levemir. Has been having bouts of severe hypoglycemia. Stabilizing. - d/c Levemir. - follow glucose every 4 hours. - d/c D10. - insulin sliding scale, low dose. Left groin abscess/ Left leg cellulitis The pt had an incision from her MVR in October that appears infected. Significant pus noted in the wound. US: Small area of decreased echogenicity in the left groin possibly representing phlegmon versus scar tissue; No definite well organized abscess cavity is seen. The pt also has a skin tear on the left leg that is becoming erythematous. Wound care recs appreciated. ID consult appreciated. Wound growing staph. - wound care per wound care nurse. - cefazolin per ID. DVT prophylaxis: SCDs/TEDs, Coumadin. Discharge Planning Transfer to floor Magen Swanson DO Mar 12, 2017 17:34
[2017-03-12] MEDS: PRAVASTATIN SOD 40 MG TAB PO SCH (23:59)
[2017-03-13] VITALS (9 sets, daily range): BP systolic 107–130; BP diastolic 52–64; PULSE 78–95; RESP 16–20; TEMP 97.4–98.4; O2SAT 94–97
[2017-03-13] MEDS: LEVOTHYROXINE SODIUM 75 MCG TAB PO SCH (05:51)
[2017-03-13] MEDS: INSULIN ASPART SUPPLEMENTAL SCALE SQ SCH ×4 (05:51→20:59)
[2017-03-13 07:57] LABS: HEMATOCRIT 38.8 % (35.0-46.0); MEAN CELL VOLUME 97.4 FL (80.0-100.0); MEAN CORPUSCULAR HEMOGLOBIN 32.6 PG (27.0-34.0); MEAN CORPUSCULAR HGB CONC 33.4 % (32.0-36.0); PLATELET COUNT 299 TH/MM3 (150-450); RED BLOOD COUNT 3.99 MIL/MM3 (4.00-5.30); RED CELL DISTRIBUTION WIDTH 16.4 % (11.6-17.2); REVIEW FLAG FINAL; WHITE BLOOD COUNT 8.1 TH/MM3 (4.0-11.0)
[2017-03-13 08:04] LABS: INTERNATIONAL NORMALIZED RATIO 2.3 RATIO; PROTHROMBIN TIME - PATIENT 26.8 SEC (9.8-11.6)
[2017-03-13] MEDS: predniSONE 10 MG TAB PO SCH (08:45)
[2017-03-13] MEDS: AMIODARONE 200 MG TAB PO SCH (08:45)
[2017-03-13] MEDS: LACTOBACILLUS ACIDOPHILUS TAB PO SCH ×3 (08:45→16:32)
[2017-03-13] MEDS: FUROSEMIDE 40 MG TAB PO SCH ×2 (08:45→20:56)
[2017-03-13] MEDS: DILTIAZEM-CD 120 MG CAP ER PO SCH (08:45)
[2017-03-13] MEDS: METOPROLOL TARTRATE 25 MG TAB PO SCH ×2 (08:45→20:56)
[2017-03-13] MEDS: DIGOXIN 0.125 MG TAB PO SCH (08:45)
[2017-03-13] MEDS: CARVEDILOL 3.125 MG TAB PO SCH ×2 (08:45→20:57)
[2017-03-13] MEDS: ASPIRIN EC 81 MG TABEC PO SCH (08:45)
[2017-03-13] MEDS: POTASSIUM CHLORIDE 10 MEQ CONTROLLED RELEASE TAB PO SCH (08:45)
[2017-03-13] MEDS: SODIUM CHLORIDE 0.9% FLUSH 10 ML FLUSH IV FLUSH SCH ×2 (08:46→20:59)
[2017-03-13] MEDS: DOCUSATE SODIUM 50 MG/SENNA 8.6 MG TAB PO SCH ×2 (08:46→20:56)
--- NOTE | 2017-03-13 10:07 | HHI.NPPN ---
Subjective History of Present Illness 76-year-old female with past medical history of atrial fibrillation, diabetes mellitus, congestive heart failure, hyperlipidemia, history of mitral wall replacement in October 2016 who came to the hospital with complaint of shortness of breath and palpitation. Additional Remarks His renal function has improved. Review of Systems General Constitutional: Fatigue Cardiovascular Cardiac: Edema, EDWARDS Objective Data Data 03/12/17 03/13/17 19:00 07:00 Intake Total 844 ml 240 ml Output Total 325 ml 1750 ml Balance 519 ml -1510 ml Intake Oral 720 ml 240 ml IV Total 124 ml Output Urine Total 325 ml 1750 ml # Voids 2 # Bowel Movements 2 0 Vital Signs Date Time Temp Pulse Resp B/P Pulse Ox O2 Delivery O2 Flow Rate FiO2 03/13/17 08:00 98.3 85 18 119/59 96 03/13/17 05:33 97.7 86 16 107/52 97 03/13/17 00:55 97.5 78 16 108/64 95 03/12/17 22:00 76 03/12/17 22:00 98/58 03/12/17 22:00 Room Air 03/12/17 20:45 97.6 84 16 105/60 94 03/12/17 20:25 97 Nasal Cannula 2.00 03/12/17 20:00 97.6 77 20 103/57 96 03/12/17 19:28 Room Air 2.00 21 03/12/17 18:00 70 03/12/17 16:00 98.3 70 29 115/56 95 03/12/17 16:00 70 03/12/17 14:00 70 03/12/17 12:00 98.3 92 27 94/55 94 03/12/17 12:00 92 -: 03/13/17 0657 03/12/17 0509 Physical Exam General Appearance: No Acute Distress, Comfortable Eyes Eye Exam: Pupils Equal Throat Throat Exam: Oral Mucosa [place] & Moist Pulmonary Resp Exam: Breath Sounds Equal, No Distress, Rhonchi, Decreased Bases Cardiology CV Exam: Regular Gastrointestinal/Abdomen GI Exam: Soft, Non-Tender, Bowel Sounds Present Extremeties Extremities Exam: Moderate Edema, Pitting Edema Neurologic Neuro Exam: Alert, Awake, Oriented Psychiatric Psych Exam: Appropriate Responses Assessment/Plan Assessment Summary: FRANCES/Acute Renal Failure Problem List: (1) CHF (congestive heart failure), NYHA class III (2) Hypertension (3) Diabetes mellitus (4) Atrial fibrillation with RVR (5) Combined systolic and diastolic congestive heart failure (6) S/P MVR (mitral valve replacement) (7) Acute kidney injury Plan Creatinine is 1.2, stable and improved renal function. Avoid nephrotoxic agents. He is on Lasix. Dr. Duran will be back on Wednesday. Problem Qualifiers (1) Hypertension: Qualified Code: I10 - Essential hypertension (2) Diabetes mellitus: Raul Hubbard MD Mar 13, 2017 10:07
[2017-03-13] MEDS ORDERED: GLIMEPIRIDE 1 MG TAB PO SCH (13:15)
--- NOTE | 2017-03-13 13:46 | HHI.PR ---
Subjective Remarks The patient was resting in bed comfortably. She says she still has the infections but they're not very painful. She was eating lunch. She said her sugar dropped low and she needed to eat peanut butter and crackers. Family at the bedside. She is interested in rehabilitation. Objective Vitals Vital Signs Date Time Temp Pulse Resp B/P Pulse Ox O2 Delivery O2 Flow Rate FiO2 03/13/17 12:00 98.4 83 18 110/59 94 03/13/17 08:46 95 21 03/13/17 08:00 98.3 85 18 119/59 96 03/13/17 05:33 97.7 86 16 107/52 97 03/13/17 00:55 97.5 78 16 108/64 95 03/12/17 22:00 76 03/12/17 22:00 98/58 03/12/17 22:00 Room Air 03/12/17 20:45 97.6 84 16 105/60 94 03/12/17 20:25 97 Nasal Cannula 2.00 03/12/17 20:00 97.6 77 20 103/57 96 03/12/17 19:28 Room Air 2.00 21 03/12/17 18:00 70 03/12/17 16:00 98.3 70 29 115/56 95 03/12/17 16:00 70 03/12/17 14:00 70 I/O 03/12/17 03/12/17 03/12/17 03/13/17 03/13/17 03/13/17 07:00 15:00 23:00 07:00 15:00 23:00 Intake Total 237 ml 844 ml 240 ml Output Total 325 ml 1750 ml Balance 237 ml 519 ml -1510 ml Intake Oral 720 ml 240 ml IV Total 237 ml 124 ml Output Urine Total 325 ml 1750 ml # Voids 4 2 # Bowel Movements 4 2 0 Result Diagram: 03/13/17 0657 03/12/17 0509 Imaging Last Impressions Soft Tissue Ultrasound 03/10/17 0000 Signed Impressions: Service Date/Time: Friday, March 10, 2017 16:34 - CONCLUSION: 1. Small area decreased echogenicity in the left groin possibly representing phlegmon versus scar tissue. No definite well organized abscess cavity is seen. If symptoms persist, CT imaging could be performed. Mak Kimbrough MD Renal Ultrasound 03/06/17 0000 Signed Impressions: Service Date/Time: Monday, March 06, 2017 13:52 - CONCLUSION: 1. No obstructive uropathy or other acute renal abnormality. Parenchymal echogenicity within normal limits. 2. Small, benign-appearing bilateral cysts as above. 3. Right pleural effusion and questionable small ascites. Hardik Lynne MD Chest X-Ray 03/04/17 1134 Signed Impressions: Service Date/Time: February 11:44 - CONCLUSION: Linear non-consolidative infiltrates or scarring in the lateral right mid and lower lung. Roshan Ward MD Objective Remarks GENERAL: This is a well-nourished, well-developed patient, in no apparent distress. SKIN: Small sore on left lateral leg with a blister component, tender to palpation. Dermatitis of venous stasis on that extremity. Abscess at left groin with expressible fluid currently bandaged. CARDIOVASCULAR: Regular rate and irregular rhythm without murmurs, gallops, or rubs. RESPIRATORY: Clear to auscultation. Breath sounds equal bilaterally. No wheezes , rales, or rhonchi. GASTROINTESTINAL: Abdomen soft, non-tender, nondistended. Normoactive bowel sounds. MUSCULOSKELETAL: Extremities with trace edema. NEURO: Alert & Oriented x4 to person, place, time, situation. Moves all ext x4. PSYCH: Mood and affect appropriate. Medications and IVs Current Medications Medications (Trade) Dose Ordered Sig/Amaris Route Start Time Stop Time Status Last Admin (Ecotrin Ec) 81 mg DAILY PO 03/05/17 09:00 03/13/17 08:45 (Coreg) 3.125 mg Q12HR PO 03/04/17 21:00 03/13/17 08:45 (Lanoxin) 0.125 mg DAILY PO 03/05/17 09:00 03/13/17 08:45 (Lasix) 40 mg BID PO 03/04/17 21:00 03/13/17 08:45 (Synthroid) 75 mcg DAILY@0600 PO 03/05/17 06:00 03/13/17 05:51 (KCl) 10 meq DAILY PO 03/05/17 09:00 03/13/17 08:45 Prednisone 10 mg 10 mg DAILY PO 03/05/17 09:00 03/13/17 08:45 (Cardizem Inj/NS Inj) 125 ml @ 0 mls/hr TITRATE IV 03/04/17 13:45 03/04/17 15:49 (NS Flush) 2 ml UNSCH PRN IV FLUSH 03/04/17 14:30 (NS Flush) 2 ml BID IV FLUSH 03/04/17 21:00 03/13/17 08:46 (Tylenol) 650 mg Q4H PRN PO 03/04/17 14:30 03/09/17 18:02 (Zofran Inj) 4 mg Q6H PRN IVP 03/04/17 14:30 (Restoril) 15 mg HS PRN PO 03/04/17 14:30 03/08/17 21:13 (Nusrat-Colace) 1 tab BID PO 03/04/17 21:00 03/11/17 19:54 (Milk Of Magnesia Liq) 30 ml Q12H PRN PO 03/04/17 14:30 (Senokot) 17.2 mg Q12H PRN PO 03/04/17 14:30 (Dulcolax Supp) 10 mg DAILY PRN RECTAL 03/04/17 14:30 (Lactulose Liq) 30 ml DAILY PRN PO 03/04/17 14:30 (Glucagon Inj) 1 mg UNSCH PRN OTHER 03/04/17 14:45 (Pravachol) 40 mg HS PO 03/04/17 21:00 03/12/17 23:59 (Pill Splitter) 1 ea UNSCH PRN OTHER 03/04/17 16:00 (Heparin Inj) 5,000 units UNSCH PRN IV 03/05/17 00:15 (Heparin Inj) 2,500 units UNSCH PRN IV 03/05/17 00:15 Metoprolol Tartrate 25 mg 25 mg Q12HR PO 03/04/17 21:00 03/13/17 08:45 (Coumadin Consult Pharmacy) 0 ml @ 0 mls/hr UNSCH OTHER 03/05/17 07:45 (Cordarone) 200 mg DAILY PO 03/06/17 09:00 03/13/17 08:45 (Cardizem Cd) 120 mg DAILY PO 03/06/17 09:00 03/13/17 08:45 Warfarin Sodium 2.5 mg 2.5 mg DAILY@1600 PO 03/07/17 16:00 03/12/17 14:49 (Coumadin Consult Pharmacy) 0 ml @ 0 mls/hr UNSCH OTHER 03/08/17 11:45 (D50w (Vial) Inj) 50 ml UNSCH PRN IV 03/08/17 23:30 03/09/17 04:58 (Glucagon Inj) 1 mg STAT PRN IM 03/08/17 23:30 Lactobacillus Acidophilus 1 tab 1 tab TID PO 03/10/17 13:00 03/13/17 12:43 (Ancef Inj/NS Inj) 100 ml @ 200 mls/hr Q8H IV 03/12/17 14:00 03/13/17 12:45 (Amaryl) 1 mg DAILYAC PO 03/13/17 13:15 A/P Assessment and Plan Mrs. Huerta is a 76-year-old female patient with a known history of atrial fibrillation, diabetes mellitus, congestive heart failure, hyperlipidemia, and mitral valve replacement in Oct 2016 who presented to the ED from Dr. Stubbs's office with complaints of shortness of breath and hypotension. Per patient, an EKG was performed and she was sent here. Atrial fibrillation with RVR, acute on chronic Given Cardizem 17 mg IV bolus in ED. Given another Cardizem IV 10 mg IV in ED. Cardizem drip was started. Appreciate cardiology consultation. EKG reviewed, irregular and paced rhythm, with left bundle branch block noted. Heart rate well controlled at this time. - Continue amiodarone and diltiazem titrated by cardiology. - Continuous cardiac telemetry. - continue Coumadin. 2.3 03/13. Discontinue heparin drip. 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 Per records, patient underwent bi IVICD in 2010 with an EF of 20-20% at that time. ECHO with severely low EF of 20 %. Patient is with low BP. MARIE/ARB not started 2/2 low BP. BNP markedly elevated. - Continue home Coreg 3.125 mg PO q12hr, aspirin, digoxin. - Continue Coumadin. Pharmacy assisting. - diuresis per nephrology. - PT. Rehab recommended. Acute kidney injury Suspect secondary to CHF exacerbation. Kidney indices are improving. Renal US noted. - follow up with nephrology. - Avoid nephrotoxins. - continue diuresis. Type 2 diabetes mellitus/ Hypoglycemia Hemoglobin A1c 8.2%. On Levemir. Has been having bouts of severe hypoglycemia. Stabilizing. - d/c Levemir. - follow glucose ACHS. - d/c D10. - insulin sliding scale, low dose. - consider resuming glimepiride at low dose of 1 mg daily if glucose remains stable. Left groin abscess/ Left leg cellulitis The pt had an incision from her MVR in October that appears infected. Significant pus noted in the wound. US: Small area of decreased echogenicity in the left groin possibly representing phlegmon versus scar tissue; No definite well organized abscess cavity is seen. The pt also has a skin tear on the left leg that is becoming erythematous. Wound care recs appreciated. ID consult appreciated. Wound growing staph. - wound care per wound care nurse. - cefazolin per ID. DVT prophylaxis: SCDs/TEDs, Coumadin. Discharge Planning Anticipate d/c to SNF in 1-2 days. Awaiting final ID recommendations and euglycemia Magen Swanson DO Mar 13, 2017 13:46
[2017-03-13] MEDS ORDERED: PHARMACY ORDERED LAB ONE (15:45)
[2017-03-13] MEDS: WARFARIN SOD 2.5 MG TAB PO SCH (16:32)
[2017-03-13] MEDS: PRAVASTATIN SOD 40 MG TAB PO SCH (20:55)
[2017-03-13] MEDS: ACETAMINOPHEN 325 MG TAB PO PRN (23:31)
[2017-03-14] VITALS (9 sets, daily range): BP systolic 114–128; BP diastolic 57–73; PULSE 70–94; RESP 18–20; TEMP 97.3–98.7; O2SAT 92–97
[2017-03-14] MEDS: INSULIN ASPART SUPPLEMENTAL SCALE SQ SCH ×4 (06:05→20:27)
[2017-03-14] MEDS: LEVOTHYROXINE SODIUM 75 MCG TAB PO SCH (06:05)
[2017-03-14] MEDS: DIGOXIN 0.125 MG TAB PO SCH (08:30)
[2017-03-14] MEDS: METOPROLOL TARTRATE 25 MG TAB PO SCH ×2 (08:31→20:15)
[2017-03-14] MEDS: predniSONE 10 MG TAB PO SCH (08:31)
[2017-03-14] MEDS: FUROSEMIDE 40 MG TAB PO SCH ×2 (08:31→20:16)
[2017-03-14] MEDS: SODIUM CHLORIDE 0.9% FLUSH 10 ML FLUSH IV FLUSH SCH ×2 (08:31→20:16)
[2017-03-14] MEDS: DILTIAZEM-CD 120 MG CAP ER PO SCH (08:31)
[2017-03-14] MEDS: AMIODARONE 200 MG TAB PO SCH (08:31)
[2017-03-14] MEDS: ASPIRIN EC 81 MG TABEC PO SCH (08:31)
[2017-03-14] MEDS: LACTOBACILLUS ACIDOPHILUS TAB PO SCH ×3 (08:31→18:11)
[2017-03-14] MEDS: POTASSIUM CHLORIDE 10 MEQ CONTROLLED RELEASE TAB PO SCH (08:31)
[2017-03-14] MEDS: CARVEDILOL 3.125 MG TAB PO SCH ×2 (08:31→20:15)
[2017-03-14] MEDS: DOCUSATE SODIUM 50 MG/SENNA 8.6 MG TAB PO SCH ×2 (08:32→20:15)
[2017-03-14 08:51] LABS: INTERNATIONAL NORMALIZED RATIO 2.8 RATIO; PROTHROMBIN TIME - PATIENT 32.7 SEC (9.8-11.6)
[2017-03-14] MEDS ORDERED: METO25TA3 PO (10:22)
[2017-03-14] MEDS ORDERED: CARD120C4 PO (10:22)
--- NOTE | 2017-03-14 10:33 | HHI.PR ---
Subjective Remarks In the chair eating breakfast. Says she is less sob. Says she is not moving much and not sure how she will do. Denies having any chest pain or sob at this time. No palpitations. No n/v/d/c. No fever or chills. Objective Vitals Vital Signs Date Time Temp Pulse Resp B/P Pulse Ox O2 Delivery O2 Flow Rate FiO2 03/14/17 08:00 97.4 94 18 114/73 96 03/14/17 06:00 98.1 84 18 127/59 92 03/14/17 04:00 Room Air 03/14/17 00:00 Room Air 03/14/17 00:00 97.7 87 20 116/57 94 03/13/17 21:01 Room Air 03/13/17 20:20 96 Nasal Cannula 21 03/13/17 20:00 98.3 93 20 119/61 94 03/13/17 20:00 95 03/13/17 16:00 97.4 84 18 130/62 97 03/13/17 12:00 98.4 83 18 110/59 94 I/O 03/13/17 03/13/17 03/13/17 03/14/17 03/14/17 03/14/17 07:00 15:00 23:00 07:00 15:00 23:00 Intake Total 240 ml 360 ml Output Total 1750 ml 500 ml 1100 ml Balance -1510 ml -140 ml -1100 ml Intake Oral 240 ml 360 ml Output Urine Total 1750 ml 500 ml 1100 ml # Bowel Movements 0 2 2 Result Diagram: 03/13/17 0657 03/12/17 0509 Imaging Last Impressions Soft Tissue Ultrasound 03/10/17 0000 Signed Impressions: Service Date/Time: Friday, March 10, 2017 16:34 - CONCLUSION: 1. Small area decreased echogenicity in the left groin possibly representing phlegmon versus scar tissue. No definite well organized abscess cavity is seen. If symptoms persist, CT imaging could be performed. Mak Kimbrough MD Renal Ultrasound 03/06/17 0000 Signed Impressions: Service Date/Time: Monday, March 06, 2017 13:52 - CONCLUSION: 1. No obstructive uropathy or other acute renal abnormality. Parenchymal echogenicity within normal limits. 2. Small, benign-appearing bilateral cysts as above. 3. Right pleural effusion and questionable small ascites. Hardik Lynne MD Chest X-Ray 03/04/17 1134 Signed Impressions: Service Date/Time: February 11:44 - CONCLUSION: Linear non-consolidative infiltrates or scarring in the lateral right mid and lower lung. Roshan Ward MD Objective Remarks GENERAL: This is a very pleasant 76 yo F, well-nourished, well-developed patient, in no apparent distress. SKIN: Small sore on left lateral leg with a blister component, tender to palpation. Dermatitis of venous stasis on left extremity. Abscess at left groin with expressible fluid currently bandaged. CARDIOVASCULAR: Regular rate and irregular rhythm without murmurs, gallops, or rubs. RESPIRATORY: Clear to auscultation. Breath sounds equal bilaterally. No wheezes , rales, or rhonchi. GASTROINTESTINAL: Abdomen soft, non-tender, nondistended. Normoactive bowel sounds. MUSCULOSKELETAL: Extremities with trace edema, improved. NEURO: Alert & Oriented x4 to person, place, time, situation. Moves all ext x4. PSYCH: Mood and affect appropriate. A/P Assessment and Plan Mrs. Huerta is a 76-year-old female patient with a known history of atrial fibrillation, diabetes mellitus, congestive heart failure, hyperlipidemia, and mitral valve replacement in Oct 2016 who presented to the ED from Dr. Stubbs's office with complaints of shortness of breath and hypotension. Per patient, an EKG was performed and she was sent here. Atrial fibrillation with RVR, acute on chronic Given Cardizem 17 mg IV bolus in ED. Given another Cardizem IV 10 mg IV in ED. Cardizem drip was started. Appreciate cardiology consultation. EKG reviewed, irregular and paced rhythm, with left bundle branch block noted. Heart rate well controlled at this time. - Continue amiodarone and diltiazem titrated by cardiology. - Continuous cardiac telemetry. - continue Coumadin. 2.3 03/13. Discontinue heparin drip. 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 Per records, patient underwent bi IVICD in 2010 with an EF of 20-20% at that time. ECHO with severely low EF of 20 %. Patient is with low BP. MARIE/ARB not started 2/2 low BP. BNP markedly elevated. - Continue home Coreg 3.125 mg PO q12hr, aspirin, digoxin. - Continue Coumadin. Pharmacy assisting. - diuresis per nephrology. - PT. Rehab recommended. Acute kidney injury Suspect secondary to CHF exacerbation. Kidney indices are improving. Renal US noted. - follow up with nephrology. - Avoid nephrotoxins. - continue diuresis. Type 2 diabetes mellitus/ Hypoglycemia Hemoglobin A1c 8.2%. On Levemir. Has been having bouts of severe hypoglycemia. Stabilizing. - d/c Levemir. - follow glucose ACHS. - d/c D10. - insulin sliding scale, low dose. - consider resuming glimepiride at low dose of 1 mg daily if glucose remains stable. Left groin abscess/ Left leg cellulitis The pt had an incision from her MVR in October that appears infected. Significant pus noted in the wound. US: Small area of decreased echogenicity in the left groin possibly representing phlegmon versus scar tissue; No definite well organized abscess cavity is seen. The pt also has a skin tear on the left leg that is becoming erythematous. Wound care recs appreciated. ID consult appreciated. Wound growing staph. - wound care per wound care nurse. - cefazolin per ID. DVT prophylaxis: SCDs/TEDs, Coumadin. Discharge Planning Plan to DC to SNF. Awaiting final ID recommendations and euglycemia Patti Jacome MD Mar 14, 2017 10:33
[2017-03-14] MEDS ORDERED: WARFARIN SOD 1 MG TAB PO SCH (16:00)
[2017-03-14] MEDS: PRAVASTATIN SOD 40 MG TAB PO SCH (20:15)
[2017-03-15] VITALS (9 sets, daily range): BP systolic 104–127; BP diastolic 54–67; PULSE 68–87; RESP 18–22; TEMP 97.7–98.2; O2SAT 93–97
[2017-03-15] MEDS: LEVOTHYROXINE SODIUM 75 MCG TAB PO SCH (06:00)
[2017-03-15] MEDS: INSULIN ASPART SUPPLEMENTAL SCALE SQ SCH ×4 (06:05→21:54)
[2017-03-15 08:11] LABS: INTERNATIONAL NORMALIZED RATIO 2.4 RATIO
[2017-03-15 08:12] LABS: PROTHROMBIN TIME - PATIENT 27.7 SEC (9.8-11.6)
[2017-03-15] MEDS: SODIUM CHLORIDE 0.9% FLUSH 10 ML FLUSH IV FLUSH SCH ×2 (09:00→21:46)
[2017-03-15] MEDS: LACTOBACILLUS ACIDOPHILUS TAB PO SCH ×3 (09:38→18:00)
[2017-03-15] MEDS: DILTIAZEM-CD 120 MG CAP ER PO SCH (09:39)
[2017-03-15] MEDS: METOPROLOL TARTRATE 25 MG TAB PO SCH ×3 (09:39→21:48)
[2017-03-15] MEDS: predniSONE 10 MG TAB PO SCH (09:39)
[2017-03-15] MEDS: DIGOXIN 0.125 MG TAB PO SCH (09:39)
[2017-03-15] MEDS: AMIODARONE 200 MG TAB PO SCH (09:39)
[2017-03-15] MEDS: FUROSEMIDE 40 MG TAB PO SCH ×2 (09:39→21:47)
[2017-03-15] MEDS: ASPIRIN EC 81 MG TABEC PO SCH (09:39)
[2017-03-15] MEDS: POTASSIUM CHLORIDE 10 MEQ CONTROLLED RELEASE TAB PO SCH (09:39)
[2017-03-15] MEDS: CARVEDILOL 3.125 MG TAB PO SCH ×3 (09:39→21:46)
[2017-03-15] MEDS: DOCUSATE SODIUM 50 MG/SENNA 8.6 MG TAB PO SCH ×2 (09:39→21:00)
--- NOTE | 2017-03-15 10:27 | HHI.NPPN ---
Subjective History of Present Illness 76-year-old female with past medical history of atrial fibrillation, diabetes mellitus, congestive heart failure, hyperlipidemia, history of mitral wall replacement in October 2016 who came to the hospital with complaint of shortness of breath and palpitation. Additional Remarks Patient is alert, sitting on chair, eating better, breathing improved, on RA. Review of Systems General Constitutional: Fatigue Cardiovascular Cardiac: Edema, EDWARDS Objective Data Data 03/14/17 03/15/17 19:00 07:00 Intake Total 480 ml 1700 ml Output Total 1900 ml 1600 ml Balance -1420 ml 100 ml Intake Oral 480 ml 1700 ml Output Urine Total 1900 ml 1600 ml # Bowel Movements 3 0 Vital Signs Date Time Temp Pulse Resp B/P Pulse Ox O2 Delivery O2 Flow Rate FiO2 03/15/17 08:00 98.2 82 18 127/58 93 03/15/17 04:00 97.7 68 22 120/67 97 03/15/17 00:15 98.0 74 19 125/60 96 03/15/17 00:00 82 03/14/17 20:45 97.3 78 18 128/64 95 03/14/17 20:00 81 03/14/17 20:00 Room Air 03/14/17 16:00 98.7 70 18 121/62 97 03/14/17 12:00 97.5 70 18 123/59 97 -: 03/13/17 0657 03/12/17 0509 Physical Exam General Appearance: No Acute Distress, Comfortable Eyes Eye Exam: Pupils Equal Throat Throat Exam: Oral Mucosa [place] & Moist Pulmonary Resp Exam: Breath Sounds Equal, No Distress, Rhonchi, Decreased Bases Cardiology CV Exam: Regular Gastrointestinal/Abdomen GI Exam: Soft, Non-Tender, Bowel Sounds Present Extremeties Extremities Exam: Moderate Edema, Pitting Edema Neurologic Neuro Exam: Alert, Awake, Oriented Psychiatric Psych Exam: Appropriate Responses Assessment/Plan Assessment Summary: FRANCES/Acute Renal Failure Problem List: (1) CHF (congestive heart failure), NYHA class III (2) Hypertension (3) Diabetes mellitus (4) Atrial fibrillation with RVR (5) Combined systolic and diastolic congestive heart failure (6) S/P MVR (mitral valve replacement) (7) Acute kidney injury Plan Patient is getting IVF due to recurrent Hypoglycemia. BP is stable. On Lasix and has adequate UO. There is further improvement in the Creatinine. BP is stable and HR controlled. Renal U/S noted. Leg edema is better, continue Lasix, Also on Kcl, no new BMP, check in AM. Problem Qualifiers (1) Hypertension: Qualified Code: I10 - Essential hypertension (2) Diabetes mellitus: John Duran MD Mar 15, 2017 10:27
--- NOTE | 2017-03-15 12:10 | HHI.PR ---
Subjective Remarks Patient in the chair. Says she did have a BM in the morning. No n/v/d/c. Eating fairly well. Denies chest pain or sob at this time. No cough. No fever or chills. Feels tired. Objective Vitals Vital Signs Date Time Temp Pulse Resp B/P Pulse Ox O2 Delivery O2 Flow Rate FiO2 03/15/17 09:10 94 21 03/15/17 08:00 98.2 82 18 127/58 93 03/15/17 04:00 97.7 68 22 120/67 97 03/15/17 00:15 98.0 74 19 125/60 96 03/15/17 00:00 82 03/14/17 20:45 97.3 78 18 128/64 95 03/14/17 20:00 81 03/14/17 20:00 Room Air 03/14/17 16:00 98.7 70 18 121/62 97 I/O 03/14/17 03/14/17 03/14/17 03/15/17 03/15/17 03/15/17 06:59 14:59 22:59 06:59 14:59 22:59 Intake Total 480 ml 900 ml 800 ml Output Total 1100 ml 1900 ml 200 ml 1400 ml Balance -1100 ml -1420 ml 700 ml -600 ml Intake Oral 480 ml 900 ml 800 ml Output Urine Total 1100 ml 1900 ml 200 ml 1400 ml # Bowel Movements 2 3 0 0 Result Diagram: 03/13/17 0657 03/12/17 0509 Imaging Last Impressions Soft Tissue Ultrasound 03/10/17 0000 Signed Impressions: Service Date/Time: Friday, March 10, 2017 16:34 - CONCLUSION: 1. Small area decreased echogenicity in the left groin possibly representing phlegmon versus scar tissue. No definite well organized abscess cavity is seen. If symptoms persist, CT imaging could be performed. Mak Kimbrough MD Renal Ultrasound 03/06/17 0000 Signed Impressions: Service Date/Time: Monday, March 06, 2017 13:52 - CONCLUSION: 1. No obstructive uropathy or other acute renal abnormality. Parenchymal echogenicity within normal limits. 2. Small, benign-appearing bilateral cysts as above. 3. Right pleural effusion and questionable small ascites. Hardik Lynne MD Chest X-Ray 03/04/17 1134 Signed Impressions: Service Date/Time: February 11:44 - CONCLUSION: Linear non-consolidative infiltrates or scarring in the lateral right mid and lower lung. Roshan Ward MD Objective Remarks GENERAL: This is a very pleasant 76 yo F, well-nourished, well-developed patient, in no apparent distress. SKIN: Small sore on left lateral leg with a blister component, tender to palpation. Dermatitis of venous stasis on left extremity. Abscess at left groin with expressible fluid currently bandaged. CARDIOVASCULAR: Regular rate and irregular rhythm without murmurs, gallops, or rubs. RESPIRATORY: Clear to auscultation. Breath sounds equal bilaterally. No wheezes , rales, or rhonchi. GASTROINTESTINAL: Abdomen soft, non-tender, nondistended. Normoactive bowel sounds. MUSCULOSKELETAL: Extremities with trace edema, improved. NEURO: Alert & Oriented x4 to person, place, time, situation. Moves all ext x4. PSYCH: Mood and affect appropriate. A/P Assessment and Plan Mrs. Huerta is a 76-year-old female patient with a known history of atrial fibrillation, diabetes mellitus, congestive heart failure, hyperlipidemia, and mitral valve replacement in Oct 2016 who presented to the ED from Dr. Stubbs's office with complaints of shortness of breath and hypotension. Per patient, an EKG was performed and she was sent here. Atrial fibrillation with RVR, acute on chronic Given Cardizem 17 mg IV bolus in ED. Given another Cardizem IV 10 mg IV in ED. Cardizem drip was started. Appreciate cardiology consultation. EKG reviewed, irregular and paced rhythm, with left bundle branch block noted. Heart rate well controlled at this time. - Continue amiodarone and diltiazem titrated by cardiology. - Continuous cardiac telemetry. - continue Coumadin. 2.3 03/13. Discontinue heparin drip. 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 Per records, patient underwent bi IVICD in 2010 with an EF of 20-20% at that time. ECHO with severely low EF of 20 %. Patient is with low BP. MARIE/ARB not started 2/2 low BP. BNP markedly elevated. - Continue home Coreg 3.125 mg PO q12hr, aspirin, digoxin. - Continue Coumadin. Pharmacy assisting. - diuresis per nephrology. - PT. Rehab recommended. Acute kidney injury Suspect secondary to CHF exacerbation. Kidney indices are improving. Renal US noted. - follow up with nephrology. - Avoid nephrotoxins. - continue diuresis. Type 2 diabetes mellitus/ Hypoglycemia Hemoglobin A1c 8.2%. On Levemir. Has been having bouts of severe hypoglycemia. Stabilizing. - d/c Levemir. - follow glucose ACHS. - d/c D10. - insulin sliding scale, low dose. - resuming glimepiride at low dose of 1 mg daily Left groin abscess/ Left leg cellulitis The pt had an incision from her MVR in October that appears infected. Significant pus noted in the wound. US: Small area of decreased echogenicity in the left groin possibly representing phlegmon versus scar tissue; No definite well organized abscess cavity is seen. The pt also has a skin tear on the left leg that is becoming erythematous. Wound care recs appreciated. ID consult appreciated. Wound growing staph. - wound care per wound care nurse. - cefazolin per ID. DVT prophylaxis: SCDs/TEDs, Coumadin. Discharge Planning Plan to DC to SNF. Awaiting final ID recommendations. Patti Jacome MD Mar 15, 2017 12:10
--- NOTE | 2017-03-15 14:20 | HHI.IDPN ---
Note Infectious Disease Note Patient without complaints. Notes pain in the left leg area of redness when touched. Sitting in chair. No distress. afebrile. Left Groin wound culture has Staph aureus. Left leg wound has Staph aureus. Presented to the emergency department on March 04 with new-onset atrial fibrillation and rapid ventricular response. Noted to have erythema at the left leg and drainage from incision at the r. groin. PAST MEDICAL HISTORY 1. Diabetes mellitus, 2. Hyperlipidemia, 3. Atrial fibrillation, 4. Mitral valve replacement October 2016 5. Cardiomyopathy 6. Hysterectomy, 7. Tonsillectomy 8. Biventricular cardiac defibrillator ALLERGIES NO KNOWN DRUG ALLERGIES. MEDICATIONS Ancef OBJECTIVE: Vital Signs Date Time Temp Pulse Resp B/P Pulse Ox O2 Delivery O2 Flow Rate FiO2 03/15/17 12:00 98.0 81 18 114/54 97 03/15/17 09:10 94 21 03/15/17 08:00 98.2 82 18 127/58 93 03/15/17 04:00 97.7 68 22 120/67 97 03/15/17 00:15 98.0 74 19 125/60 96 03/15/17 00:00 82 03/14/17 20:45 97.3 78 18 128/64 95 03/14/17 20:00 81 03/14/17 20:00 Room Air 03/14/17 16:00 98.7 70 18 121/62 97 03/14/17 03/14/17 03/15/17 15:00 23:00 07:00 Intake Total 480 ml 900 ml 800 ml Output Total 1900 ml 200 ml 1400 ml Balance -1420 ml 700 ml -600 ml Intake Oral 480 ml 900 ml 800 ml Output Urine Total 1900 ml 200 ml 1400 ml # Bowel Movements 3 0 0 Microbiology Date/Time Procedure Status Source Growth 03/10/17 14:30 Gram Stain - Final Complete Wound Leg 03/10/17 14:30 Wound Culture - Final Complete Staphylococcus Aureus 03/10/17 14:30 Gram Stain - Final Complete Wound Other 03/10/17 14:30 Wound Culture - Final Complete Staphylococcus Aureus PHYSICAL EXAMINATION GENERAL: No acute distress. Awake, alert and oriented. HEENT: No icterus. Oropharynx has no visible lesions. NECK: Supple without adenopathy. LUNGS: Clear breath sounds HEART: Regular rate and rhythm without murmurs, rubs or gallops. ABDOMEN: Bowel sounds present, soft, nontender. EXTREMITIES: The left groin has tenderness on palpation and little drainage on the dressing. The left distal tibia still has erythema. 1+ edema at the left tibia. SKIN: No diffuse rash. NEUROLOGIC: Nonfocal PSYCHIATRIC: The patient is calm and cooperative. IMPRESSION 1. Left groin infection at wound where prior cannulation was performed for prior procedure. Staph aureus. 2. Cellulitis of the left leg. Staph aureus. RECOMMENDATIONS IV Ceftriaxone until March 26. Orders written on Infusion form. PIC Line. OK to transfer to SNF. Duane Monge MD Mar 15, 2017 14:19
--- NOTE | 2017-03-15 14:24 | HHI.FF ---
Infusion Therapy Location of Infusion Therapy: [facility] Infusion Therapy Order Patient Information Patient Weight 68.5 kg Diagnosis: Diagnosis Left groin wound infection. Cellulitis left lower extremity. 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 [] May leave port accessed during therapy. [] May leave peripheral site accessed for duration of therapy. [x] If patient has SOB or respiratory distress, check oxygen saturation. If less than 90% or clinical signs of respiratory distress, administer oxygen at 2 L/min. via nasal cannula and notify physician. [x] Anaphylaxis/Reaction orders: * Stop infusion. * Keep IV line open with saline flush. * Notify physician. * Monitor vital signs every 15 minutes until symptoms resolve. * Check Oxygen saturation; Oxygen at 2 L/min. via nasal cannula if less than 90% or clinical signs of respiratory distress. * Administer diphenhydramine (Benadryl) 25 mg IV STAT, (unless patient has received as pre-med). May repeat once, if necessary. * Solu-Cortef 250 mg IVP over 30-60 seconds, use 100 mg vials for each dissolution. * Epinephrine (1mg/1 ml) 0.3 mg subcutaneously or IVP now with any signs of respiratory distress. * Check with physician for new additional pre-med orders if patient is re- challenged or re-treated. [x] May remove PICC line when treatment complete, after confirming with Physician. [x] If the patient is admitted to the hospital, the ED, or transferred via [facility] , complete transfer form including medication reconciliation order sheet. Laboratory Tests Weekly Labs: CBC w/diff Duane Monge MD Mar 15, 2017 14:24
[2017-03-15] MEDS: WARFARIN SOD 1 MG TAB PO SCH (16:00)
[2017-03-15] MEDS: PRAVASTATIN SOD 40 MG TAB PO SCH (21:46)
[2017-03-16 00:42] VITALS: BP 104/62; PULSE 79; RESP 18; TEMP 98.6; O2SAT 96
[2017-03-16] MEDS: TEMAZEPAM 15 MG CAP PO PRN (01:32)
[2017-03-16 04:48] VITALS: BP 116/60; PULSE 89; RESP 18; TEMP 97.2; O2SAT 98
[2017-03-16] MEDS: INSULIN ASPART SUPPLEMENTAL SCALE SQ SCH ×2 (05:27→12:09)
[2017-03-16] MEDS: LEVOTHYROXINE SODIUM 75 MCG TAB PO SCH (05:57)
[2017-03-16 08:00] VITALS: BP 101/55; PULSE 91; RESP 18; TEMP 97.6; O2SAT 97
[2017-03-16 08:20] LABS: HEMATOCRIT 39.7 % (35.0-46.0); MEAN CELL VOLUME 96.2 FL (80.0-100.0); MEAN CORPUSCULAR HEMOGLOBIN 31.5 PG (27.0-34.0); MEAN CORPUSCULAR HGB CONC 32.8 % (32.0-36.0); PLATELET COUNT 316 TH/MM3 (150-450); RED BLOOD COUNT 4.12 MIL/MM3 (4.00-5.30); RED CELL DISTRIBUTION WIDTH 16.1 % (11.6-17.2); REVIEW FLAG FINAL; WHITE BLOOD COUNT 8.4 TH/MM3 (4.0-11.0)
[2017-03-16 08:35] LABS: INTERNATIONAL NORMALIZED RATIO 2.4 RATIO; PROTHROMBIN TIME - PATIENT 27.3 SEC (9.8-11.6)
[2017-03-16] MEDS: DOCUSATE SODIUM 50 MG/SENNA 8.6 MG TAB PO SCH (09:00)
[2017-03-16 09:41] VITALS: O2SAT 97
[2017-03-16] MEDS: LACTOBACILLUS ACIDOPHILUS TAB PO SCH ×2 (11:14→12:04)
[2017-03-16] MEDS: DIGOXIN 0.125 MG TAB PO SCH (11:15)
[2017-03-16] MEDS: FUROSEMIDE 40 MG TAB PO SCH (11:15)
[2017-03-16] MEDS: METOPROLOL TARTRATE 25 MG TAB PO SCH (11:16)
[2017-03-16] MEDS: SODIUM CHLORIDE 0.9% FLUSH 10 ML FLUSH IV FLUSH SCH (11:16)
[2017-03-16] MEDS: predniSONE 10 MG TAB PO SCH (11:17)
[2017-03-16] MEDS: AMIODARONE 200 MG TAB PO SCH (11:17)
[2017-03-16] MEDS: DILTIAZEM-CD 120 MG CAP ER PO SCH (11:17)
[2017-03-16] MEDS: POTASSIUM CHLORIDE 10 MEQ CONTROLLED RELEASE TAB PO SCH (11:18)
[2017-03-16] MEDS: ASPIRIN EC 81 MG TABEC PO SCH (11:18)
--- NOTE | 2017-03-16 11:25 | HHI.NPPN ---
Subjective History of Present Illness 76-year-old female with past medical history of atrial fibrillation, diabetes mellitus, congestive heart failure, hyperlipidemia, history of mitral wall replacement in October 2016 who came to the hospital with complaint of shortness of breath and palpitation. Additional Remarks Patient is alert, sitting on chair, eating , no complain. Review of Systems General Constitutional: Fatigue Cardiovascular Cardiac: Edema, EDWARDS Objective Data Data 03/15/17 03/16/17 19:00 07:00 Intake Total 960 ml Output Total 1500 ml 1000 ml Balance -540 ml -1000 ml Intake Oral 960 ml Output Urine Total 1500 ml 1000 ml # Bowel Movements 3 0 Vital Signs Date Time Temp Pulse Resp B/P Pulse Ox O2 Delivery O2 Flow Rate FiO2 03/16/17 09:41 97 21 03/16/17 04:48 97.2 89 18 116/60 98 03/16/17 00:42 98.6 79 18 104/62 96 03/15/17 22:41 104/62 03/15/17 20:30 98.0 87 18 112/65 96 03/15/17 20:00 Room Air 03/15/17 16:00 98.0 80 18 120/67 97 03/15/17 12:00 98.0 81 18 114/54 97 -: 03/16/17 0755 03/12/17 0509 Physical Exam General Appearance: No Acute Distress, Comfortable Eyes Eye Exam: Pupils Equal Throat Throat Exam: Oral Mucosa [place] & Moist Pulmonary Resp Exam: Breath Sounds Equal, No Distress, Rhonchi, Decreased Bases Cardiology CV Exam: Regular Gastrointestinal/Abdomen GI Exam: Soft, Non-Tender, Bowel Sounds Present Extremeties Extremities Exam: Moderate Edema, Pitting Edema Neurologic Neuro Exam: Alert, Awake, Oriented Psychiatric Psych Exam: Appropriate Responses Assessment/Plan Assessment Summary: FRANCES/Acute Renal Failure Problem List: (1) CHF (congestive heart failure), NYHA class III (2) Hypertension (3) Diabetes mellitus (4) Atrial fibrillation with RVR (5) Combined systolic and diastolic congestive heart failure (6) S/P MVR (mitral valve replacement) (7) Acute kidney injury Plan BP is stable, now new BMP. On Lasix and has adequate UO. There is further improvement in the Creatinine. BP is stable and HR controlled. Renal U/S noted. Leg edema is better, continue Lasix, Check BMP in AM. Problem Qualifiers (1) Hypertension: Qualified Code: I10 - Essential hypertension (2) Diabetes mellitus: John Duran MD Mar 16, 2017 11:24
--- NOTE | 2017-03-16 11:28 | HHI.PR ---
Subjective Remarks In the chair. Says she has no fever or chills. No n/v/d/c. Asking when she is going to snf. Plan for PICC/midline and DC to snf when arrangements done . Discussed with the patient plan at DC Objective Vitals Vital Signs Date Time Temp Pulse Resp B/P Pulse Ox O2 Delivery O2 Flow Rate FiO2 03/16/17 09:41 97 21 03/16/17 04:48 97.2 89 18 116/60 98 03/16/17 00:42 98.6 79 18 104/62 96 03/15/17 22:41 104/62 03/15/17 20:30 98.0 87 18 112/65 96 03/15/17 20:00 Room Air 03/15/17 16:00 98.0 80 18 120/67 97 03/15/17 12:00 98.0 81 18 114/54 97 I/O 03/15/17 03/15/17 03/15/17 03/16/17 03/16/17 03/16/17 07:00 15:00 23:00 07:00 15:00 23:00 Intake Total 800 ml 960 ml Output Total 1400 ml 1500 ml 300 ml 700 ml Balance -600 ml -540 ml -300 ml -700 ml Intake Oral 800 ml 960 ml Output Urine Total 1400 ml 1500 ml 300 ml 700 ml # Bowel Movements 0 3 0 Result Diagram: 03/16/17 0755 03/12/17 0509 Imaging Last Impressions Soft Tissue Ultrasound 03/10/17 0000 Signed Impressions: Service Date/Time: Friday, March 10, 2017 16:34 - CONCLUSION: 1. Small area decreased echogenicity in the left groin possibly representing phlegmon versus scar tissue. No definite well organized abscess cavity is seen. If symptoms persist, CT imaging could be performed. Mak Kimbrough MD Renal Ultrasound 03/06/17 0000 Signed Impressions: Service Date/Time: Monday, March 06, 2017 13:52 - CONCLUSION: 1. No obstructive uropathy or other acute renal abnormality. Parenchymal echogenicity within normal limits. 2. Small, benign-appearing bilateral cysts as above. 3. Right pleural effusion and questionable small ascites. Hardik Lynne MD Chest X-Ray 03/04/17 1134 Signed Impressions: Service Date/Time: February 11:44 - CONCLUSION: Linear non-consolidative infiltrates or scarring in the lateral right mid and lower lung. Roshan Ward MD Objective Remarks GENERAL: This is a very pleasant 76 yo F, well-nourished, well-developed patient, in no apparent distress. SKIN: Small sore on left lateral leg with a blister component, tender to palpation. Dermatitis of venous stasis on left extremity. Abscess at left groin with expressible fluid currently bandaged. CARDIOVASCULAR: Regular rate and irregular rhythm without murmurs, gallops, or rubs. RESPIRATORY: Clear to auscultation. Breath sounds equal bilaterally. No wheezes , rales, or rhonchi. GASTROINTESTINAL: Abdomen soft, non-tender, nondistended. Normoactive bowel sounds. MUSCULOSKELETAL: Extremities with trace edema, improved. NEURO: Alert & Oriented x4 to person, place, time, situation. Moves all ext x4. PSYCH: Mood and affect appropriate. A/P Assessment and Plan Mrs. Huerta is a 76-year-old female patient with a known history of atrial fibrillation, diabetes mellitus, congestive heart failure, hyperlipidemia, and mitral valve replacement in Oct 2016 who presented to the ED from Dr. Stubbs's office with complaints of shortness of breath and hypotension. Per patient, an EKG was performed and she was sent here. Atrial fibrillation with RVR, acute on chronic Given Cardizem 17 mg IV bolus in ED. Given another Cardizem IV 10 mg IV in ED. Cardizem drip was started. Appreciate cardiology consultation. EKG reviewed, irregular and paced rhythm, with left bundle branch block noted. Heart rate well controlled at this time. - Continue amiodarone and diltiazem titrated by cardiology. - Continuous cardiac telemetry. - continue Coumadin. 2.3 03/13. Discontinue heparin drip. 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 Per records, patient underwent bi IVICD in 2010 with an EF of 20-20% at that time. ECHO with severely low EF of 20 %. Patient is with low BP. MARIE/ARB not started 2/2 low BP. BNP markedly elevated. - Continue home Coreg 3.125 mg PO q12hr, aspirin, digoxin. - Continue Coumadin. Pharmacy assisting. - diuresis per nephrology. - PT. Rehab recommended. Acute kidney injury Suspect secondary to CHF exacerbation. Kidney indices are improving. Renal US noted. - follow up with nephrology. - Avoid nephrotoxins. - continue diuresis. Type 2 diabetes mellitus/ Hypoglycemia Hemoglobin A1c 8.2%. On Levemir. Has been having bouts of severe hypoglycemia. Stabilizing. - d/c Levemir. - follow glucose ACHS. - d/c D10. - insulin sliding scale, low dose. - resuming glimepiride at low dose of 1 mg daily Left groin abscess/ Left leg cellulitis The pt had an incision from her MVR in October that appears infected. Significant pus noted in the wound. US: Small area of decreased echogenicity in the left groin possibly representing phlegmon versus scar tissue; No definite well organized abscess cavity is seen. The pt also has a skin tear on the left leg that is becoming erythematous. Wound care recs appreciated. ID consult appreciated. Wound growing staph. - wound care per wound care nurse. - cefazolin per ID received as inpatient Continue at discharge Ceftriaxone 2 grams IV q 24 hours. Stop Treatment: Feb; polynn ID specialist recommendations. DVT prophylaxis: SCDs/TEDs, Coumadin. Discharge Planning Plan to DC to SNF. Plan for PICC/midline and DC to snf when arrangements done . Patti Jacome MD Mar 16, 2017 11:28
--- NOTE | 2017-03-16 11:29 | HHI.DS ---
Discharge Summary Admission Date Mar 04, 2017 at 14:25 Discharge Date: Mar 16, 2017 Admitting Diagnosis NEW ONSET AFIB WITH RVR (1) Cellulitis ICD Code: L03.90 Diagnosis: Principal (2) Cellulitis and abscess of leg ICD Code: L03.119 Diagnosis: Principal (3) Atrial fibrillation with RVR ICD Code: I48.91 Diagnosis: Principal (4) CHF (congestive heart failure), NYHA class III ICD Code: I50.9 Diagnosis: Secondary (5) Combined systolic and diastolic congestive heart failure ICD Code: I50.40 Diagnosis: Secondary (6) Acute kidney injury ICD Code: N17.9 Diagnosis: Secondary (7) Diabetes mellitus ICD Code: E11.9 Diagnosis: Secondary (8) Hypertension ICD Code: I10 Diagnosis: Secondary Procedures none Brief History - From Admission Written by Mary Kang, acting as scribe for Dr. Jacome on 03/04/17 at 14:21. This note was transcribed by scribOctavia HO. I, Dr. Patti Jacome personally performed the history, physical exam, and medical decision making; and confirmed the accuracy of the information in the transcribed note. Authenticated by Dr. Patti Jacome on 03/04/17 at 14:21. Mrs. Huerta is a 76-year-old female patient with a known history of atrial fibrillation, diabetes mellitus, congestive heart failure, hyperlipidemia, and mitral valve replacement in Oct 2016 who presented to the ED from Dr. Stubbs's office with complaints of shortness of breath and hypotension. Per patient, an EKG was performed and she was sent here. Patient states she's been feeling palpitations and shortness of breath intermittently for three days. Denies any recent or current chest pain. States that she has been unable to walk even short distances without feeling dyspneic. Patient states that she has noticed increasing bilateral leg swelling the past few days. Per patient, Dr. Stubbs had switched some of her medications and she has been unsure which ones he wants her to take and which ones he wants her to stop. Currently denies any shortness of breath or palpitations, lying comfortably in bed. Denies any recent fever, chills, chest pain, abdominal pain, nausea, vomiting, diarrhea, dysuria. CBC/BMP: 03/16/17 0755 03/12/17 0509 Significant Findings Laboratory Tests Test 03/14/17 03/15/17 03/16/17 07:26 07:30 07:55 Prothrombin Time 32.7 SEC 27.7 SEC 27.3 SEC (9.8-11.6) (9.8-11.6) (9.8-11.6) Imaging Last Impressions Soft Tissue Ultrasound 03/10/17 0000 Signed Impressions: Service Date/Time: Friday, March 10, 2017 16:34 - CONCLUSION: 1. Small area decreased echogenicity in the left groin possibly representing phlegmon versus scar tissue. No definite well organized abscess cavity is seen. If symptoms persist, CT imaging could be performed. Mak Kimbrough MD Renal Ultrasound 03/06/17 0000 Signed Impressions: Service Date/Time: Monday, March 06, 2017 13:52 - CONCLUSION: 1. No obstructive uropathy or other acute renal abnormality. Parenchymal echogenicity within normal limits. 2. Small, benign-appearing bilateral cysts as above. 3. Right pleural effusion and questionable small ascites. Hardik Lynne MD Chest X-Ray 03/04/17 1134 Signed Impressions: Service Date/Time: February 11:44 - CONCLUSION: Linear non-consolidative infiltrates or scarring in the lateral right mid and lower lung. Roshan Ward MD PE at Discharge GENERAL: This is a very pleasant 76 yo F, well-nourished, well-developed patient, in no apparent distress. SKIN: Small sore on left lateral leg with a blister component, tender to palpation. Dermatitis of venous stasis on left extremity. Abscess at left groin with expressible fluid currently bandaged. CARDIOVASCULAR: Regular rate and irregular rhythm without murmurs, gallops, or rubs. RESPIRATORY: Clear to auscultation. Breath sounds equal bilaterally. No wheezes , rales, or rhonchi. GASTROINTESTINAL: Abdomen soft, non-tender, nondistended. Normoactive bowel sounds. MUSCULOSKELETAL: Extremities with trace edema, improved. NEURO: Alert & Oriented x4 to person, place, time, situation. Moves all ext x4. PSYCH: Mood and affect appropriate. Hospital Course Mrs. Huerta is a 76-year-old female patient with a known history of atrial fibrillation, diabetes mellitus, congestive heart failure, hyperlipidemia, and mitral valve replacement in Oct 2016 who presented to the ED from Dr. Stubbs's office with complaints of shortness of breath and hypotension. Per patient, an EKG was performed and she was sent here. Atrial fibrillation with RVR, acute on chronic Given Cardizem 17 mg IV bolus in ED. Given another Cardizem IV 10 mg IV in ED. Cardizem drip was started. Appreciate cardiology consultation. EKG reviewed, irregular and paced rhythm, with left bundle branch block noted. Heart rate well controlled at this time. - Continue amiodarone and diltiazem titrated by cardiology. - Continuous cardiac telemetry. - continue Coumadin. 2.3 03/13. Discontinue heparin drip. 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 Per records, patient underwent bi IVICD in 2010 with an EF of 20-20% at that time. ECHO with severely low EF of 20 %. Patient is with low BP. MARIE/ARB not started 2/2 low BP. BNP markedly elevated. - Continue home Coreg 3.125 mg PO q12hr, aspirin, digoxin. - Continue Coumadin. Pharmacy assisting. - diuresis per nephrology. - PT. Rehab recommended. Acute kidney injury Suspect secondary to CHF exacerbation. Kidney indices are improving. Renal US noted. - follow up with nephrology. - Avoid nephrotoxins. - continue diuresis. Type 2 diabetes mellitus/ Hypoglycemia Hemoglobin A1c 8.2%. On Levemir. Has been having bouts of severe hypoglycemia. Stabilizing. - d/c Levemir. - follow glucose ACHS. - d/c D10. - insulin sliding scale, low dose. - resuming glimepiride at low dose of 1 mg daily Left groin abscess/ Left leg cellulitis The pt had an incision from her MVR in October that appears infected. Significant pus noted in the wound. US: Small area of decreased echogenicity in the left groin possibly representing phlegmon versus scar tissue; No definite well organized abscess cavity is seen. The pt also has a skin tear on the left leg that is becoming erythematous. Wound care recs appreciated. ID consult appreciated. Wound growing staph. - wound care per wound care nurse. - cefazolin per ID received as inpatient Continue at discharge Ceftriaxone 2 grams IV q 24 hours. Stop Treatment: Feb; poer ID specialist recommendations. DVT prophylaxis: SCDs/TEDs, Coumadin. Discharge Planning DC to SNF in stable condition. To follow up as OP with PCP and consultants. Pt Condition on Discharge: Stable Discharge Disposition: Discharge to SNF Discharge Time: > 30 minutes Discharge Instructions DIET: Follow Instructions for: Diabetic Diet Activities you can perform: Regular-No Restrictions Follow up Referrals: Cardiology - 1 Week with Javier Stubbs MD Nephrology - 1 Week PCP Follow-up - 3-5 Days New Medications: Diltiazem CD 24 HR (Cardizem CD 24 HR) 120 Mg Caper 120 MG PO DAILY Blood Pressure Management #30 CAP Metoprolol Tartrate (Metoprolol Tartrate) 25 Mg Tab 25 MG PO Q12HR Blood Pressure Management #60 TAB Continued Medications: Amiodarone (Amiodarone) 200 Mg Tab 200 MG PO BID hear rhythm #[address] (Aspirin EC) 81 Mg Tabdr 81 MG PO DAILY Ref 0 TAB Carvedilol (Coreg) 3.125 Mg Tab 3.125 MG PO Q12HR hold SBP<100 HR<60 Blood Pressure Management #60 Ref 2 TAB Digoxin (Digoxin) 0.125 Mg Tab 0.125 MG PO DAILY Regulate Heart Beat #30 Ref 0 TAB Ezetimibe-Simvastatin (Vytorin) 10-20 Mg Tab 1 TAB PO HS #30 Ref 0 TAB Furosemide (Lasix) 20 Mg Tab 40 MG PO BID #30 Ref 0 TAB Glimepiride (Glimepiride) 4 Mg Tab 4 MG PO DAILY Take with breakfast or first main meal Blood Sugar Management #30 Ref 0 TAB Insulin Aspart Inj (Novolog Inj) 1,000 Unit/10 Ml Vial 2-12 UNITS SQ ACHS Max dose at bedtime ( ) units; sugars less than 70,(0) units ; sugars 150-199,(2) units; sugars 200-249,(4) units; sugars 250-299,(7) units; sugars 300-349,(10) units; sugars greater than 349,(12)units Blood Sugar Management #10 Ref 0 ML Insulin Detemir Inj (Levemir Inj) 1,000 unit/ 10 ML Vial 5 UNITS SQ AC BREAKFAST Blood Sugar Management #1 Ref 1 INJECTION Levothyroxine (Levoxyl) 75 Mcg Tab 75 MCG PO DAILY Thyroid #30 Ref 0 TAB Potassium Chloride ER (Klor-Con 10) 10 Meq Tab 10 MEQ PO DAILY Electrolyte Replacement #30 Ref 0 TAB Prednisone (Prednisone) 10 Mg Tab 10 MG PO DAILY Ref 0 TAB Warfarin (Jantoven) 2 Mg Tab 2 MG PO DAILY Blood Clot Prevention #30 Ref 0 TAB Discontinued Medications: Lisinopril (Lisinopril) 2.5 Mg Tab 2.5 MG PO DAILY hold SBP<100 #30 Ref 0 TAB Losartan (Losartan) 50 Mg Tab 50 MG PO DAILY Blood Pressure Management #30 Ref 0 TAB Patti Jacome MD Mar 16, 2017 11:29
[2017-03-16 12:00] VITALS: BP 118/67; PULSE 88; RESP 18; TEMP 97.7; O2SAT 97
[2017-03-16] MEDS: WARFARIN SOD 1 MG TAB PO SCH (16:00)
== END 2017-03-16 16:10 | DRG 308 ==
LOC: NEPC 11:15 → NEDA 13:24 → OBSVTOIN 14:25 → HCIS 18:30 → N04B 03-08 22:20 → N03B 03-09 06:38 → N04B 03-12 20:44
PROVIDERS: ADMIT Hospitalist; ATTEND Hospitalist
DX: I48.2 Chronic atrial fibrillation (principal); N17.0 Acute kidney failure with tubular necrosis; I50.43 Acute on chronic combined systolic (congestive) and diastolic (congestive) heart failure; I42.9 Cardiomyopathy, unspecified; E11.649 Type 2 diabetes mellitus with hypoglycemia without coma; L03.116 Cellulitis of left lower limb; T81.4XXA Infection following a procedure, initial encounter; L02.214 Cutaneous abscess of groin; H40.9 Unspecified glaucoma; E87.6 Hypokalemia; E03.9 Hypothyroidism, unspecified; I11.0 Hypertensive heart disease with heart failure; Y83.1 Surgical operation with implant of artificial internal device as the cause of abnormal reaction of the patient, or of later complication, without mention of misadventure at the time of the procedure; Y92.9 Unspecified place or not applicable; B95.7 Other staphylococcus as the cause of diseases classified elsewhere; I44.7 Left bundle-branch block, unspecified; E78.5 Hyperlipidemia, unspecified; Z79.01 Long term (current) use of anticoagulants; Z95.2 Presence of prosthetic heart valve; Z79.82 Long term (current) use of aspirin; Z95.810 Presence of automatic (implantable) cardiac defibrillator
CPT/HCPCS: 71010; 76775; 76937; 76999; 80048; 80053; 82550; 82947; 82948; 83036; 83605; 83735; 83880; 84100; 84443; 84484; 85025; 85027; 85610; 85730; 86403; 87070; 87147; 87186; 87205; 87641; 93005; 93306; 96372; 96374; J0295; J0690; J1644; J1650; J1815; J2543; J3370; J7050; J7512